=== PATIENT | male | born 1960 | race African-American/Black ===

== ENCOUNTER 2020-04-17 16:10 | Emergency (ER) | payer SELFPAY ==
[2020-04-17] MEDS ORDERED: LIDOCAINE 2% URO-JET 5 ML KIT MM ONE (16:25)
--- NOTE | 2020-04-17 16:26 | ER Document Report ---
ED Medical Screen (RME) - General Chief Complaint: Urinary Problem Stated Complaint: URINARY ISSUE Time Seen by Provider: 04/17/20 16:22 Mode of Arrival: Ambulatory Information source: Patient Notes: 59-year-old male patient presents emergency department with complaints of acute urinary retention. Patient reports he is unable to urinate, he last urinated last night. He denies any history of this happening in the past. Denies any recent illness, denies nausea, vomiting, diarrhea or fevers. Patient is alert, oriented, does not appear to be in significant distress. I have greeted and performed a rapid initial assessment of this patient. A comprehensive ED assessment and evaluation of the patient, analysis of test results and completion of the medical decision making process will be conducted by additional ED providers. I have specifically instructed the patient or family members with the patient to immediately return to any nursing staff should anything change in the patient's condition or with their chief complaint. - Related Data Allergies/Adverse Reactions: No Known Allergies Allergy (Unverified 04/17/20 16:22) Physical Exam - Vital signs Vitals: Temp Pulse Resp BP Pulse Ox 98.5 F 96 20 157/89 H 97 04/17/20 16:15 04/17/20 16:15 04/17/20 16:15 04/17/20 16:15 04/17/20 16:15 Course - Vital Signs Vital signs: Temp Pulse Resp BP Pulse Ox 98.5 F 96 20 157/89 H 97 04/17/20 16:15 04/17/20 16:15 04/17/20 16:15 04/17/20 16:15 04/17/20 16:15
[2020-04-17 16:55] LABS: ABSOLUTE BASOPHILS # (AUTO) 0.1 10^3/uL (0.0-0.2); ABSOLUTE EOSINOPHILS # (AUTO) 0.2 10^3/uL (0.0-0.6); ABSOLUTE LYMPHOCYTES (AUTO) 1.3 10^3/uL (0.5-4.7); ABSOLUTE MONOCYTES (AUTO) 0.5 10^3/uL (0.1-1.4); BASOPHILS % (AUTO) 1.1 % (0-2); EOSINOPHILS % (AUTO) 4.1 % (0-6); HEMATOCRIT 37.3 % (37.9-51.0); HEMOGLOBIN 12.6 g/dL (13.5-17.0); LYMPHOCYTES % (AUTO) 25.5 % (13-45); MEAN CORPUSCULAR HEMOGLOBIN 31.5 pg (27.0-33.4); MEAN CORPUSCULAR HGB CONC 33.7 g/dL (32.0-36.0); MEAN CORPUSCULAR VOLUME 93 fl (80-97); MONOCYTES % (AUTO) 10.1 % (3-13); PLATELET COUNT 265 10^3/uL (150-450); RED CELL DISTRIBUTION WIDTH 13.2 % (11.5-14.0); SEGMENTED NEUTROPHILS % (AUTO) 59.2 % (42-78); TOTAL CELLS COUNTED % (AUTO) 100 %; WHITE BLOOD COUNT 5.1 10^3/uL (4.0-10.5)
[2020-04-17 16:58] LABS: APPEARANCE,URINE CLEAR; BILIRUBIN,URINE NEGATIVE (NEGATIVE); COLOR,URINE STRAW; GLUCOSE, URINE NEGATIVE (NEGATIVE); KETONES,URINE NEGATIVE (NEGATIVE); LEUKOCYTE ESTERASE,URINE NEGATIVE (NEGATIVE); NITRITE,URINE NEGATIVE (NEGATIVE); PROTEIN,URINE NEGATIVE (NEGATIVE); URINE SPECIFIC GRAVITY 1.005; UROBILINOGEN,URINE NEGATIVE mg/dL (<2.0)
[2020-04-17 17:16] LABS: ALBUMIN 4.2 g/dL (3.5-5.0); ALKALINE PHOSPHATASE 49 U/L (38-126); ANION GAP 10 (5-19); ASPARTATE AMINO TRANSFERASE 24 U/L (17-59); BILIRUBIN,TOTAL 0.5 mg/dL (0.2-1.3); BLOOD UREA NITROGEN 49 mg/dL (7-20); CALCIUM 9.4 mg/dL (8.4-10.2); CARBON DIOXIDE 19 mmol/L (22-30); CHLORIDE 107 mmol/L (98-107); GLUCOSE 87 mg/dL (75-110); TOTAL PROTEIN 7.6 g/dL (6.3-8.2)
[2020-04-17 17:22] LABS: POTASSIUM 6.4 mmol/L (3.6-5.0)
[2020-04-17] MEDS ORDERED: SODIUM POLYSTYRENE SULFONATE 15 GM/60 ML PO ONE (17:49)
--- NOTE | 2020-04-17 18:07 | ER Document Report ---
ED General - General Chief Complaint: Urinary Problem Stated Complaint: URINARY ISSUE Time Seen by Provider: 04/17/20 16:22 Mode of Arrival: Ambulatory Information source: Patient - HPI Notes: Patient presents with lower abdominal pain and incontinence as well as dysuria. He states this started several days ago. He states last night he had incontinence of urine and is the first time this is happened. He states it does burn when he urinates. His pain is a burning sensation is moderate in intensity. It is worse with urination and better without. It does radiate up into his lower abdomen. No fevers. No problems with bowel movements. He denies previous similar symptoms. - Related Data Allergies/Adverse Reactions: No Known Allergies Allergy (Unverified 04/17/20 16:22) Past Medical History - General Information source: Patient - Social History Smoking Status: Current Every Day Smoker Frequency of alcohol use: None Drug Abuse: None Family History: Reviewed & Not Pertinent Patient has homicidal ideation: No Review of Systems - Review of Systems Constitutional: denies: Chills, Fever Cardiovascular: denies: Chest pain, Palpitations Respiratory: denies: Cough, Short of breath - Melanoma -: Yes All other systems reviewed and negative Physical Exam - Vital signs Vitals: Temp Pulse Resp BP Pulse Ox 98.5 F 96 20 157/89 H 97 04/17/20 16:15 04/17/20 16:15 04/17/20 16:15 04/17/20 16:15 04/17/20 16:15 Interpretation: Hypertensive - Without while how to get COVID - General General appearance: Appears well, Alert - HEENT Head: Normocephalic, Atraumatic Eyes: Normal Pupils: PERRL - Respiratory Respiratory status: No respiratory distress Chest status: Nontender Breath sounds: Normal Chest palpation: Normal - Cardiovascular Rhythm: Regular Heart sounds: Normal auscultation Murmur: No - Abdominal Inspection: Normal - works Distension: Distended Bowel sounds: Hypoactive Tenderness: Tender - tender with voluntary guarding over lower abdomen. bladder feels distended. Organomegaly: No organomegaly - Back Back: Normal, Nontender - Extremities General upper extremity: Normal inspection, Nontender, Normal color, Normal ROM, Normal temperature General lower extremity: Normal inspection, Nontender, Normal color, Normal ROM, Normal temperature, Normal weight bearing. No: Gini's sign - Neurological Neuro grossly intact: Yes Cognition: Normal Orientation: AAOx4 Icard Coma Scale Eye Opening: Spontaneous Icard Coma Scale Verbal: Oriented Icard Coma Scale Motor: Obeys Commands Icard Coma Scale Total: 15 Speech: Normal Motor strength normal: LUE, RUE, LLE, RLE Sensory: Normal - Psychological Associated symptoms: Normal affect, Normal mood - Skin Skin Temperature: Warm Skin Moisture: Dry Skin Color: Normal Course - Re-evaluation Re-evalutation: 04/17/20 20:40 Patient presents with abdominal distention and pain with urination. Patient had obvious retention on exam. A Sneed was placed and approximately 3 L have been returned of reddish urine. He states he feels significantly better. It was appreciated the patient was also in renal failure as well as hyperkalemic. On EKG he has peaked T waves with a normal QRS. I repeated his potassium after some Kayexalate and the obstruction was released however potassium is still elevated at 6.2. Therefore I will treat the patient with further medication s uch as glucose insulin bicarb and calcium. I have arranged for the patient be transferred to [facility] since there is no urology here. Patient is stable with normal vital signs. Patient CT shows no evidence of obstructive mass but he does have dilated urinary tract system. Patient had a Sneed placed easily so it seems unlikely that his prostate is the culprit. He denies taking any daily medicines so this is also unlikely to be the culprit. There is no infection. - Vital Signs Vital signs: Temp Pulse Resp BP Pulse Ox 98.5 F 96 20 157/89 H 97 04/17/20 16:23 04/17/20 16:15 04/17/20 16:15 04/17/20 16:15 04/17/20 16:15 - Laboratory Result Diagrams: 04/17/20 16:31 04/17/20 20:04 Laboratory results interpreted by me: 04/17/20 04/17/20 04/17/20 16:31 16:31 20:04 RBC 4.00 L Hgb 12.6 L Hct 37.3 L Sodium 136.2 L Potassium 6.4 H* 6.2 H* Chloride 108 H Carbon Dioxide 19 L BUN 49 H 47 H Creatinine 6.17 H 5.89 H Est GFR ( Amer) 11 L 12 L Est GFR (MDRD) Non-Af 9 L 10 L - Diagnostic Test Radiology reviewed: Image reviewed, Reports reviewed - EKG Interpretation by Me EKG shows normal: Sinus rhythm Rate: Normal - 68 Rhythm: NSR [place]/QRS: No: Right axis deviation, Left axis deviation When compared to previous EKG there are: Other - t waves are peaked Critical Care Note - Critical Care Note Total time excluding time spent on procedures (mins): 40 Comments: Approximately 40 minutes of critical care time were spent managing this patient's hyperkalemic, acute renal failure and urinary retention. This included multiple reexaminations. It included multiple discussions with consultants. And included reviewing labs and imaging. Discharge - Discharge Clinical Impression: Acute urinary retention, Hyperkalemia Acute renal failure Qualifiers: Acute renal failure type: unspecified Qualified Code(s): N17.9 - Acute kidney failure, unspecified Condition: Critical Disposition: [facility]
--- NOTE | 2020-04-17 19:00 | RADIOLOGY REPORT (SQ) ---
EXAM DESCRIPTION: CT ABD/PELVIS NO ORAL OR IV IMAGES COMPLETED DATE/TIME: 04/17/2020 6:45 pm REASON FOR STUDY: lower abdominal pain COMPARISON: None. TECHNIQUE: CT scan of the abdomen and pelvis performed without intravenous or oral contrast. Images reviewed with lung, soft tissue, and bone windows. Reconstructed coronal and sagittal MPR images revi ewed. All images stored on PACS. All CT scanners at this facility use dose modulation, iterative reconstruction, and/or weight based d osing when appropriate to reduce radiation dose to as low as reasonably achievable (ALARA). [facility]: Dose Right [facility]: CareDose [facility]: Dose Right [facility]: Teradose 4D [facility]: [employer] RADIATION DOSE: CT Rad equipment meets quality standard of care and radiation dose reduction techniq ues were employed. CTDIvol: 5.6 mGy. DLP: 294 mGy-cm.mGy. LIMITATIONS: None. FINDINGS: LOWER CHEST: No significant findings. No nodules or infiltrates. NON-CONTRASTED LIVER, SPLEEN, ADRENALS: Evaluation limited by lack of IV contrast. No identified sign ificant masses. PANCREAS: No masses. No peripancreatic inflammatory changes. GALLBLADDER: No identified stones by CT criteria. No inflammatory changes to suggest cholecystitis. RIGHT KIDNEY AND URETER: No suspicious masses. Assessment limited by lack of IV contrast. No signif icant calcifications. There is mild right-sided hydronephrosis. There is a 5.2 cm cyst. LEFT KIDNEY AND URETER: No suspicious masses. Assessment limited by lack of IV contrast. No signifi cant calcifications. Mild dilatation of the left collecting system as well. No stones are identifi ed. AORTA AND RETROPERITONEUM: No aneurysm. No retroperitoneal masses or adenopathy. BOWEL AND PERITONEAL CAVITY: No obvious masses or inflammatory changes. No free fluid. APPENDIX: Normal. PELVIS, BLADDER, AND ABDOMINAL WALL:Sneed catheter is in place in the bladder. Bladder wall appears slightly thickened measured up to 9.2 mm. BONES: No significant findings. OTHER: No other significant finding. IMPRESSION: Mild dilatation of both collecting systems right greater than left. No stones are ident ified. Bladder wall is thickened. A Sneed catheter is in place. COMMENT: Quality ID # [id number]: Final reports with documentation of one or more dose reduction techniques (e.g., Automated exposure control, adjustment of the mA and/or kV according to patient size, use of iterative reconstruction technique) TECHNICAL DOCUMENTATION: JOB ID: [id number] 2010 [employer]- All Rights Reserved Reading location - IP/workstation name: [email or web address]
[2020-04-17 20:30] LABS: ANION GAP 10 (5-19); BLOOD UREA NITROGEN 47 mg/dL (7-20); CALCIUM 9.9 mg/dL (8.4-10.2); CARBON DIOXIDE 22 mmol/L (22-30); CHLORIDE 108 mmol/L (98-107); GLUCOSE 92 mg/dL (75-110)
[2020-04-17 20:34] LABS: POTASSIUM 6.2 mmol/L (3.6-5.0)
[2020-04-17] MEDS ORDERED: CALCIUM GLUCONATE 1000 MG/10 ML INJ IV ONE (20:37)
[2020-04-17] MEDS ORDERED: DEXTROSE 50%-WATER 25 GM/50 ML DISP.SYRIN IV ONE (20:37)
[2020-04-17] MEDS ORDERED: INSULIN REG, HUMAN 100 UNIT/ML 3 ML VIAL (PYX) IV ONE (20:37)
[2020-04-17] MEDS ORDERED: SODIUM BICARBONATE 8.4% INJ 50 MEQ/50 ML DISP.SYRIN IV ONE (20:38)
[2020-04-17] MEDS ORDERED: LABETALOL HCL INJ 20 MG/4 ML DISP.SYRIN IV ONE (20:56)
--- NOTE | 2020-04-17 22:15 | EKG REPORT ---
SEVERITY:- NORMAL ECG - SINUS RHYTHM : Confirmed by: Eduardo Faust 17-Apr-2020 22:14:48
[2020-04-17 23:05] VITALS: BP 214/107
== END 2020-04-17 23:10 | disposition short-term general hospital (02) ==
LOC: ER 16:10
DX: R33.9 Retention of urine, unspecified (principal); E87.5 Hyperkalemia; R10.30 Lower abdominal pain, unspecified; N17.9 Acute kidney failure, unspecified; I10 Essential (primary) hypertension; F17.200 Nicotine dependence, unspecified, uncomplicated
CPT/HCPCS: 93005; 99285; 96374; 96375; 36415; 87086; 85025; 80053; 81001; 74176; 93010; J0610; J3490 ×3; J1815

== ENCOUNTER → 2020-11-02 | Outpatient (CLI) | payer SELFPAY ==
[2020-11-02 10:31] VITALS: BP 161/90
--- NOTE | 2020-11-02 10:31 | ER RDC ASSESSMENT REPORT ---
Intake - In the Last 14 days Have you traveled outside [place]?: No Have you been in close contact with someone CONFIRMED: No Worked in Healthcare?: No - Symptoms Subjective Fever([place] feverish): No Chills: No Muscule Aches: No Runny Nose: No Sore Throat: No Cough (New or worsening chronic cough): No Shortness of breath: No Nausea or Vomiting: No Headache: No Abdominal Pain: No Diarrhea(3 or more loose stools in last 24 hours): No - Do you have any of the following Chronic lung disease: Asthma or emphysema or COPD: No Cystic Fibrosis: No Diabetes: No High Blood Pressure: No Cardiovascular Disease: No Chronic Kidney Disease: No Chronic Liver Disease: No Chronic blood disorder like Sickle Cell Disease: No Weak immune system due to disease or medication: No Neurologic condition that limits movement: No Developmental delay - Moderate to Severe: No Morbid Obesity (>100 pounds over ideal weight): No - Objective Temperature: 98.0 F Pulse Rate: 89 Respiratory Rate: 18 Blood Pressure: 161/90 O2 Sat by Pulse Oximetry: 96 Objective: Given above, testing performed: COVID Disposition: Home; Selfcare General - General Stated Complaint: ASYMPTOMATIC, COVID TEST ONLY Time Seen by Provider: 11/02/20 10:00 Mode of Arrival: Ambulatory Information source: Patient - [facility] Notes: Patient presents to clinic for routine COVID-19 testing. Patient denies any close contact with another COVID 19 positive individual. Patient is asymptomatic. They deny any cough, shortness of breath, fever, chills, muscle aches, rhinorrhea, sore throat, nausea or vomiting, headache, abdominal pain or diarrhea. Patient has no acute medical concerns. - Related Data Allergies/Adverse Reactions: No Known Allergies Allergy (Unverified 04/17/20 16:22) Past Medical History - General Information source: Patient - Social History Smoking Status: Never Smoker Family History: Reviewed & Not Pertinent - Past Medical History Cardiac Medical History: Reports: None Pulmonary Medical History: Reports: None EENT Medical History: Reports: None Neurological Medical History: Reports: None Endocrine Medical History: Reports: None Renal/ Medical History: Reports: None Malignancy Medical History: Reports None GI Medical History: Reports: None Musculoskeletal Medical History: Reports None Skin Medical History: Reports None Psychiatric Medical History: Reports: None Traumatic Medical History: Reports: None Infectious Medical History: Reports: None Past Surgical History: Reports: None Physical Exam - General General appearance: Appears well, Alert In distress: None Notes: PHYSICAL EXAMINATION: GENERAL: Well-appearing and in no acute distress. HEAD: Atraumatic, normocephalic. EYES: sclera anicteric, conjunctiva are normal. ENT: nares patent. Moist mucous membranes. NECK: Normal range of motion, supple without lymphadenopathy. LUNGS: No increased work of breathing. Lung sounds CTAB and equal. No wheezes rales or rhonchi. HEART: Regular rate and rhythm without murmurs. ABDOMEN: Soft, nontender, normal bowel sounds, no guarding. EXTREMITIES: Normal range of motion, no pitting edema. No cyanosis. NEUROLOGICAL: A&O x 3. Normal speech. PSYCH: Normal mood, normal affect. SKIN: Warm, Dry, normal turgor, no rashes or lesions noted Patient Education/Counseling Counseling/Education: Patient presents for COVID 19 testing. Patient is asymptomatic at this time. Patient does not have emergency worrying symptoms such as difficulty breathing, shortness of breath, chest pain, pressure, confusion or cyanosis. Patient appears suitable for discharge as vital signs are stable and patient is nontoxic in appearance. Good return precautions have been discussed with patient, patient verbalized understanding and is agreeable with discharge plan of care at this time. Guidance for worsening S/SX: As a person under investigation for Covid 19, the [place] department of Health and Human Services, division of public health advises you to adhere to the following guidance until your test results are reported to you. If your test result is positive, you will receive additional information from your provider and your local health department at that time. Remain at home until you are cleared by the health provider or public health authorities. Keep a log of visitors to your home, notify any visitors to your home of your isolation status. If you plan to move to a new address or leave the county, notify the local health department in your County. Call your doctor or seek care if you have an urgent medical need. Before seeking medical care, call ahead to get instructions from the provider before arriving at the medical office clinic or hospital. Notify them that you are being tested for the virus that causes Covid 19 so that arrangements can be made, as necessary, to prevent transmission to others in the healthcare setting. Next, notify the local health department in your county. If a medical emergency arises and you need to call 911, inform the first responders that you are being tested for the virus that causes Covid 19. Next, notify the local health department in your county. RDC Discharge - Discharge Clinical Impression: Encounter for screening laboratory testing for COVID-19 virus in asymptomatic patient Condition: Good Disposition: Home; Selfcare
== END ==
LOC: RDC 09:13
PROVIDERS: ATTEND Registered Nurse
DX: Z20.828 Contact with and (suspected) exposure to other viral communicable diseases (principal)
CPT/HCPCS: 87635; 99201; 99211; C9803

== ENCOUNTER 2020-11-24 14:10 | Inpatient (IN) | payer SELFPAY ==
[2020-11-24] MEDS ORDERED: ONDANSETRON HCL INJ/PF 4 MG/2 ML SDV IV ONE ×2 (16:10→18:41)
[2020-11-24] MEDS ORDERED: NORMAL SALINE 1000 ML 1,000 ML IV ONE (16:11)
--- NOTE | 2020-11-24 16:12 | ER Document Report ---
ED Medical Screen (RME) - General Chief Complaint: Nausea/Vomiting Stated Complaint: NAUSEA,VOMITING Time Seen by Provider: 11/24/20 15:59 Mode of Arrival: Wheelchair Information source: Patient Notes: HPI; 59-year-old male presents to the emergency room complaining of nausea with vomiting x3 today patient states he had a decreased appetite with lack of smell and diarrhea with chest congestion and shortness of breath for the past week. He denies any COVID-19 exposure. Not taking any medications for symptoms. PE: Alert and oriented x3. Lungs: Clear to auscultation without rales, rhonchi, wheezes. Heart: Regular rate rhythm without murmurs, rubs, gallops. I have greeted and performed a rapid initial assessment of this patient. A comprehensive ED assessment and evaluation of the patient, analysis of test results and completion of the medical decision making process will be conducted by additional ED providers. I have specifically instructed the patient or family members with the patient to immediately return to any nursing staff should anything change in the patient's condition or with their chief complaint. TRAVEL OUTSIDE OF THE [place] IN LAST 30 DAYS: No - Related Data Allergies/Adverse Reactions: No Known Allergies Allergy (Unverified 04/17/20 16:22) Home Medications: blood pressure Past Medical History - Social History Chew tobacco use (# tins/day): No Frequency of alcohol use: None Drug Abuse: None Physical Exam - Vital signs Vitals: Temp Pulse Resp BP Pulse Ox 97.5 F 90 18 117/81 99 11/24/20 14:20 11/24/20 14:20 11/24/20 14:20 11/24/20 14:20 11/24/20 14:20 Course - Vital Signs Vital signs: Temp Pulse Resp BP Pulse Ox 97.5 F 90 18 117/81 99 11/24/20 14:20 11/24/20 14:20 11/24/20 14:20 11/24/20 14:20 11/24/20 14:20
--- NOTE | 2020-11-24 16:52 | RADIOLOGY REPORT (SQ) ---
EXAM DESCRIPTION: CHEST SINGLE VIEW IMAGES COMPLETED DATE/TIME: 11/24/2020 3:29 pm REASON FOR STUDY: cough COMPARISON: None. EXAM PARAMETERS: NUMBER OF VIEWS: One view. TECHNIQUE: Single frontal radiographic view of the chest acquired. RADIATION DOSE: NA LIMITATIONS: None. FINDINGS: LUNGS AND PLEURA: No opacities, masses or pneumothorax. No pleural effusion. MEDIASTINUM AND HILAR STRUCTURES: No masses. Contour normal. HEART AND VASCULAR STRUCTURES: Heart normal in size. Normal vasculature. BONES: No acute findings. HARDWARE: None in the chest. OTHER: No other significant finding. IMPRESSION: NO ACUTE RADIOGRAPHIC FINDING IN THE CHEST. TECHNICAL DOCUMENTATION: JOB ID: [id number] 2010 [employer]- All Rights Reserved Reading location - IP/workstation name: [email or web address]
[2020-11-24 17:34] LABS: ABSOLUTE LYMPHOCYTES (AUTO) 0.3 10^3/uL (0.5-4.7); ABSOLUTE MONOCYTES (AUTO) 0.3 10^3/uL (0.1-1.4); ABSOLUTE NEUT (AUTO) 3.6 10^3/uL (1.7-8.2); BASOPHILS % (AUTO) 0.8 % (0-2); EOSINOPHILS % (AUTO) 1.1 % (0-6); HEMATOCRIT 20.9 % (37.9-51.0); MEAN CORPUSCULAR HEMOGLOBIN 30.5 pg (27.0-33.4); MEAN CORPUSCULAR HGB CONC 34.4 g/dL (32.0-36.0); MEAN CORPUSCULAR VOLUME 89 fl (80-97); MONOCYTES % (AUTO) 5.9 % (3-13); PLATELET COUNT 302 10^3/uL (150-450); RED BLOOD COUNT 2.36 10^6/uL (4.35-5.55); RED CELL DISTRIBUTION WIDTH 13.4 % (11.5-14.0); SEGMENTED NEUTROPHILS % (AUTO) 84.2 % (42-78); TOTAL CELLS COUNTED % (AUTO) 100 %; WHITE BLOOD COUNT 4.3 10^3/uL (4.0-10.5)
[2020-11-24 17:43] LABS: HEMOGLOBIN 7.2 g/dL (13.5-17.0)
[2020-11-24] MEDS ORDERED: SODIUM POLYSTYRENE SULFONATE 15 GM/60 ML NG ONE (18:39)
[2020-11-24] MEDS ORDERED: CALCIUM GLUCONATE 1000 MG/10 ML INJ IV ONE (18:39)
[2020-11-24] MEDS ORDERED: DEXTROSE 50%-WATER 25 GM/50 ML DISP.SYRIN IV ONE ×2 (18:39→19:11)
[2020-11-24] MEDS ORDERED: INSULIN REG, HUMAN 100 UNIT/ML 3 ML VIAL (PYX) IV ONE (18:39)
[2020-11-24] MEDS ORDERED: SODIUM BICARBONATE 8.4% INJ 50 MEQ/50 ML DISP.SYRIN IV ONE (18:40)
[2020-11-24] MEDS ORDERED: SODIUM POLYSTYRENE SULFONATE 15 GM/60 ML PO ONE (18:44)
--- NOTE | 2020-11-24 18:54 | ER Document Report ---
ED General - General Mode of Arrival: Wheelchair TRAVEL OUTSIDE OF THE [place] IN LAST 30 DAYS: No - Related Data Home Medications: blood pressure <MANUEL HODGSON - Last Filed: 11/24/20 20:24> <ARLETTE KAPADIA IV - Last Filed: 11/25/20 06:52> <DARYN MONSON - Last Filed: 11/25/20 17:45> - General Chief Complaint: Nausea/Vomiting Stated Complaint: NAUSEA,VOMITING Time Seen by Provider: 11/24/20 15:59 Primary Care Provider: ISAURO,NO [Primary Care Provider] - Follow up as needed - HPI Notes: Chief complaint: HPI: 59-year-old male with history of hypertension, BPH and previous visit here about 6 months ago for bladder outlet obstruction and acute kidney injury with transfer to [facility] at that time now presents to the emergency room complaining of nausea with vomiting x3 today. He states he had a decreased appetite with lack of smell and diarrhea with chest congestion and shortness of breath for the past week. He denies any COVID-19 exposure. Not taking any medications at this time. Patient apparently has not been following up with a physician since he was discharged from [facility]. He is a terrible historian and says that he really does not know anything about his kidney disease. 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 HENT: As per HPI. Eyes: Negative for visual changes. Cardiovascular: Negative for chest pain. Respiratory: As per HPI. Gastrointestinal: Negative for abdominal pain, vomiting or diarrhea. Genitourinary: Negative for dysuria. Musculoskeletal: Negative for back pain. Skin: Negative for rash. Neurological: Negative for headaches, focal weakness or numbness. 10 point ROS negative except as marked above and in HPI. (MANUEL HODGSON) Physical Exam <MANUEL HODGSON - Last Filed: 11/24/20 20:24> - Vital signs Vitals: Temp Pulse Resp BP Pulse Ox 97.5 F 90 18 117/81 99 11/24/20 14:20 11/24/20 14:20 11/24/20 14:20 11/24/20 14:20 11/24/20 14:20 - Notes Notes: GENERAL: Slender male approximately stated age appearing in no acute distress. SKIN: Dry and warm to touch. Good turgor no rashes. HEAD: Normocephalic atraumatic. EYES: PERRLA. EOMI. Conjunctivae pale. Sclerae clear. EARS: CANALS AND TMS CLEAR. NOSE: CLEAR. MOUTH: Moist mucosa. Good dentition. No stridor or edema. No drooling. NECK: Supple. No masses or thyromegaly. No adenopathy. Carotids 2+ without bruits. No JVD. BACK: Symmetrical without tenderness. CHEST: Respirations unlabored. Breath sounds clear and symmetrical. HEART: Regular rhythm. No murmur gallop or rub. ABDOMEN: Soft nontender without masses, organomegaly or rebound. Bowel sounds normally active. No bruits. GENITALIA: Deferred. EXTREMITIES: No edema. No calf tenderness. Cap refill less than 1.5 seconds. Dorsalis pedis and posterior tibial pulses 3+ and symmetrical. NEUROLOGICAL: GCS 15. Alert and oriented x3. Fluent speech. Cranial nerves II through XII intact. Sensorimotor and cerebellar normal. Normal tone. PSYCHIATRIC: Appropriate affect. (MANUEL HODGSON) Course - Laboratory Results Result Diagrams: 11/24/20 19:08 11/24/20 19:08 Critical Laboratory Results Reviewed: Yes Attending or Supervising Physician who Reviewed Labs: MANUEL HODGSON - Radiology Results Critical Radiology Results Reviewed: No Critical Results Attending or Supervising Physician who Reviewed Radiology: MANUEL HODGSON <MANUEL HODGSON - Last Filed: 11/24/20 20:24> - Laboratory Results Result Diagrams: 11/25/20 03:30 11/25/20 03:30 - Consults Dr. Asher, Hospitalist, [facility] Time consulted: 03:40 - Dr. Asher accepted pt for admission but pt will be on a wait list <ARLETTE KAPADIA IV - Last Filed: 11/25/20 06:52> - Laboratory Results Result Diagrams: 11/25/20 16:00 11/25/20 16:00 <DARYN MONSON - Last Filed: 11/25/20 17:45> - Re-evaluation Re-evalutation: 11/24/20 19:15 Bladder scan shows residual urine about [address] not place a Sneed catheter. In all likelihood he has obstructive uropathy once again. I am treating him for presumptive hyperkalemia. As soon as we get his labs back anticipate he is going need to be transferred because we have no nephrology ser vices at the hospital this weekend. 11/24/20 20:24 Patient has a markedly elevated BUN and creatinine consistent with acute on chronic kidney disease. Etiology is most likely obstructive uropathy. He has Sneed catheter in at this time. We have already addressed his hyperkalemia. He will need to be transferred because we have no nephrology available here tonight. We also do not have urology. We have initiated transfer process to [facility]. Further care will be turned over to Dr. Kapadia at this time. (MANUEL HODGSON) 11/25/20 06:52 Patient's BUN and creatinine remain elevated despite a total of 2150 cc of urine output (ARLETTE KAPADIA IV) 11/25/20 16:32 Patient is hemodynamically stable continues to have urine output that is impr jeffery from its pastel pink color. Patient reports that he would like to eat some food at this time. His renal diet is on its way at this time. In terms of transferring patient to another facility we have tried multiple facilities at this time [facility] and [facility]. (DARYN MONSON) - Vital Signs Vital signs: Temp Pulse Resp BP Pulse Ox 98.2 F 107 H 11 L 128/84 H 100 11/25/20 15:00 11/24/20 22:33 11/25/20 17:01 11/25/20 16:01 11/25/20 17:01 - Laboratory Results Laboratory Results Interpreted: 11/24/20 11/24/20 11/24/20 17:05 19:08 19:08 RBC 2.36 L 2.04 L Hgb 7.2 L 6.4 L Hct 20.9 L 18.2 L RDW Lymph % (Auto) 8.0 L 6.4 L Absolute Lymphs (auto) 0.3 L 0.3 L Seg Neutrophils % 84.2 H 85.1 H Sodium 134.9 L Potassium 5.7 H Chloride 85 L Carbon Dioxide 16 L Anion Gap 34 H BUN 258 H Creatinine 39.19 H Est GFR ( Amer) 1 L Est GFR (MDRD) Non-Af 1 L Glucose Calcium 7.4 L Crossmatch 11/24/20 11/25/20 11/25/20 20:16 00:10 00:10 RBC 2.57 L Hgb 7.8 L Hct 22.5 L RDW Lymph % (Auto) 7.3 L Absolute Lymphs (auto) 0.3 L Seg Neutrophils % Sodium Potassium Chloride 84 L Carbon Dioxide 21 L Anion Gap 33 H BUN 266 H Creatinine 42.01 H Est GFR ( Amer) 1 L Est GFR (MDRD) Non-Af 1 L Glucose 123 H Calcium 7.9 L Crossmatch See Detail 11/25/20 11/25/20 11/25/20 03:30 03:30 10:43 RBC 2.63 L 2.89 L Hgb 7.9 L 8.6 L Hct 22.8 L 24.9 L RDW Lymph % (Auto) 8.0 L 9.1 L Absolute Lymphs (auto) 0.4 L Seg Neutrophils % 78.1 H 78.9 H Sodium Potassium Chloride 85 L Carbon Dioxide Anion Gap 31 H BUN 261 H Creatinine 39.46 H Est GFR ( Amer) 1 L Est GFR (MDRD) Non-Af 1 L Glucose 111 H Calcium 7.4 L Crossmatch 11/25/20 11/25/20 11/25/20 10:43 16:00 16:00 RBC 2.85 L Hgb 8.5 L Hct 24.6 L RDW 14.1 H Lymph % (Auto) 5.1 L Absolute Lymphs (auto) 0.3 L Seg Neutrophils % 89.5 H Sodium Potassium Chloride 85 L 85 L Carbon Dioxide Anion Gap 31 H 30 H BUN 256 H 254 H Creatinine 37.24 H 36.25 H Est GFR ( Amer) 1 L 1 L Est GFR (MDRD) Non-Af 1 L 1 L Glucose Calcium 7.2 L 7.0 L* Crossmatch 11/25/20 17:43 Abnormal lab values with critical BUN and creatinine with BUN to 54 creatinine 36 calcium 7 hemoglobin 8 hematocrit 24 (DARYN MONSON) - Radiology Results Radiology Results Interpreted: 11/24/20 18:58 Chest X-Ray 11/24/20 16:04 IMPRESSION: NO ACUTE RADIOGRAPHIC FINDING IN THE CHEST. (MANUEL HODGSON) - EKG Interpretation by Me Additional EKG results interpreted by me: 11/24/20 18:59 Twelve-lead EKG reviewed by me contemporaneously: 1821 hrs. Indication for study: Weakness Rhythm: Normal sinus Rate: 73 Intervals: Normal intervals QRS axis: +[address]/T wave changes: Prominent peaking of T waves in multiple leads consistent with hyperkalemia Comparison with prior tracing: Compared with prior study of 04/17/2020 there is now prominent peaking of the T waves suggestive of hyperkalemia Interpretation: Peaking of T waves consistent with hyperkalemia (MANUEL HODGSON) - Consults Dr. Asher, Hospitalist, [facility] Reason for consultation: 11/25/20 06:54 Uremia and renal failure (ARLETTE KAPADIA IV) Discharge <MANUEL HODGSON - Last Filed: 11/24/20 20:24> <ARLETTE KAPADIA IV - Last Filed: 11/25/20 06:52> - Discharge Admitting Provider: Edelmira (Hospitalist) Unit Admitted: Telemetry <DARYN MONSON - Last Filed: 11/25/20 17:45> - Discharge Clinical Impression: Uremia Renal failure Qualifiers: Renal failure chronicity: unspecified chronicity Qualified Code(s): N19 - Unspecified kidney failure Condition: Good Disposition: ADMITTED INPATIENT Referrals: LOCALMD,NO [Primary Care Provider] - Follow up as needed
[2020-11-24 19:38] LABS: ABSOLUTE LYMPHOCYTES (AUTO) 0.3 10^3/uL (0.5-4.7); ABSOLUTE MONOCYTES (AUTO) 0.3 10^3/uL (0.1-1.4); ABSOLUTE NEUT (AUTO) 3.9 10^3/uL (1.7-8.2); EOSINOPHILS % (AUTO) 1.1 % (0-6); HEMATOCRIT 18.2 % (37.9-51.0); LYMPHOCYTES % (AUTO) 6.4 % (13-45); MEAN CORPUSCULAR HEMOGLOBIN 31.1 pg (27.0-33.4); MEAN CORPUSCULAR VOLUME 89 fl (80-97); MONOCYTES % (AUTO) 6.4 % (3-13); PLATELET COUNT 284 10^3/uL (150-450); RED BLOOD COUNT 2.04 10^6/uL (4.35-5.55); RED CELL DISTRIBUTION WIDTH 13.2 % (11.5-14.0); SEGMENTED NEUTROPHILS % (AUTO) 85.1 % (42-78); TOTAL CELLS COUNTED % (AUTO) 100 %; WHITE BLOOD COUNT 4.6 10^3/uL (4.0-10.5)
[2020-11-24 19:41] LABS: HEMOGLOBIN 6.4 g/dL (13.5-17.0)
[2020-11-24 19:45] LABS: ALBUMIN 4.3 g/dL (3.5-5.0); ALKALINE PHOSPHATASE 48 U/L (38-126); ASPARTATE AMINO TRANSFERASE 18 U/L (17-59); BILIRUBIN,DIRECT 0.4 mg/dL (0.0-0.4); BILIRUBIN,TOTAL 0.4 mg/dL (0.2-1.3); CALCIUM 7.4 mg/dL (8.4-10.2); GLUCOSE 89 mg/dL (75-110); POTASSIUM 5.7 mmol/L (3.6-5.0)
[2020-11-24 19:50] LABS: CARBON DIOXIDE 16 mmol/L (22-30); CHLORIDE 85 mmol/L (98-107)
[2020-11-24] MEDS ORDERED: NORMAL SALINE 250 ML IV PRN ×2 (19:52)
[2020-11-24] MEDS ORDERED: LIDOCAINE 2% URO-JET 5 ML KIT MM ONE (19:54)
[2020-11-24 20:01] LABS: BLOOD UREA NITROGEN 258 mg/dL (7-20)
[2020-11-24 20:02] LABS: ANION GAP 34 (5-19)
[2020-11-24] MEDS ORDERED: DEXTROSE 5%-WATER 1000 ML 1,000 ML with SODIUM BICARBONATE 100 MEQ IV ONE ×2 (20:27)
[2020-11-24] MEDS ORDERED: SODIUM BICARBONATE 8.4% INJ 50 MEQ/50 ML DISP.SYRIN ONE (21:41)
--- NOTE | 2020-11-24 21:47 | EKG REPORT ---
SEVERITY:- ABNORMAL ECG - SINUS RHYTHM LEFT VENTRICULAR HYPERTROPHY ST ELEVATION, LVH RELATED : Confirmed by: Eduardo Faust 24-Nov-2020 21:47:02
--- NOTE | 2020-11-24 22:27 | RADIOLOGY REPORT (SQ) ---
EXAM DESCRIPTION: CT ABDOMEN PELVIS WITHOUT IV CONTRAST COMPLETED DATE/TME: 11/24/2020 21:27 CLINICAL HISTORY: 59 years, Male, urinary retention,please comment allen placement COMPARISON: None. TECHNIQUE: Contiguous axial CT images of the abdomen and pelvis. Intravenous contrast: Absent. Oral contrast: Absent. DLP 235 mGy-cm. This exam was performed according to our departmental dose-optimization program, which includes automated exposure control, adjustment of the mA and/or kV according to patient size and/or use of iterative reconstruction technique. FINDINGS: Lower chest: Partially imaged. Lung bases: Unremarkable. Cardiac apex: Unremarkable. Solid abdominal viscera: Limited by lack of intravenous contrast. Liver: Unremarkable. Gallbladder: Unremarkable. Pancreas: Unremarkable. Spleen: Unremarkable. Adrenal glands: Unremarkable. Right kidney: 4.5 cm cyst. Mild hydronephrosis without evidence of hydroureter or urolithiasis. Left kidney: Mild hydronephrosis without evidence of hydroureter or urolithiasis. Urinary bladder: Allen catheter in satisfactory position. Go of the urinary bladder measure up to 7 mm in thickness Abdominal aorta: Unremarkable. Peritoneal: Free fluid: None. Free air: None. Other: No pathologic sized lymph nodes in the upper abdomen. 1.3 cm left perirectal lymph node. Bowel: Stomach: Unremarkable. Small bowel: Unremarkable. Appendix: Unremarkable. Colon: Unremarkable. Rectum: Mild circumferential thickening Prostate: Unremarkable. Bones: Sclerotic lesions are noted involving the posterior aspect of the T12 vertebral body, L1 vertebral body, S1 and right ninth rib. No pathologic fracture. IMPRESSION: Satisfactory position with a Allen catheter. Mild thickening of the urinary bladder, which may be due to cystitis. Mild bilateral hydronephrosis without evidence of urolithiasis or hydroureter. Diffuse sclerotic metastasis with no pathologic fracture. This may be secondary to rectal cancer, as there circumferential thickening with a left perirectal lymph node.
[2020-11-25 00:42] LABS: ABSOLUTE EOSINOPHILS # (AUTO) 0.1 10^3/uL (0.0-0.6); ABSOLUTE LYMPHOCYTES (AUTO) 0.3 10^3/uL (0.5-4.7); ABSOLUTE MONOCYTES (AUTO) 0.5 10^3/uL (0.1-1.4); ABSOLUTE NEUT (AUTO) 3.4 10^3/uL (1.7-8.2); BASOPHILS % (AUTO) 0.3 % (0-2); EOSINOPHILS % (AUTO) 2.8 % (0-6); HEMATOCRIT 22.5 % (37.9-51.0); LYMPHOCYTES % (AUTO) 7.3 % (13-45); MEAN CORPUSCULAR HEMOGLOBIN 30.1 pg (27.0-33.4); MEAN CORPUSCULAR HGB CONC 34.5 g/dL (32.0-36.0); MEAN CORPUSCULAR VOLUME 87 fl (80-97); MONOCYTES % (AUTO) 12.4 % (3-13); PLATELET COUNT 248 10^3/uL (150-450); RED BLOOD COUNT 2.57 10^6/uL (4.35-5.55); RED CELL DISTRIBUTION WIDTH 13.7 % (11.5-14.0); SEGMENTED NEUTROPHILS % (AUTO) 77.2 % (42-78); TOTAL CELLS COUNTED % (AUTO) 100 %; WHITE BLOOD COUNT 4.4 10^3/uL (4.0-10.5)
[2020-11-25 00:44] LABS: HEMOGLOBIN 7.8 g/dL (13.5-17.0)
[2020-11-25 00:55] LABS: ALBUMIN 4.2 g/dL (3.5-5.0); ALKALINE PHOSPHATASE 47 U/L (38-126); ASPARTATE AMINO TRANSFERASE 19 U/L (17-59); BILIRUBIN,DIRECT 0.4 mg/dL (0.0-0.4); BILIRUBIN,TOTAL 0.4 mg/dL (0.2-1.3); CALCIUM 7.9 mg/dL (8.4-10.2); GLUCOSE 123 mg/dL (75-110); POTASSIUM 4.9 mmol/L (3.6-5.0); TOTAL PROTEIN 6.9 g/dL (6.3-8.2)
[2020-11-25 01:01] LABS: CARBON DIOXIDE 21 mmol/L (22-30); CHLORIDE 84 mmol/L (98-107)
[2020-11-25 01:48] LABS: BLOOD UREA NITROGEN 266 mg/dL (7-20)
[2020-11-25 01:49] LABS: ANION GAP 33 (5-19)
[2020-11-25] MEDS ORDERED: NORMAL SALINE 250 ML IV ONE (03:01)
[2020-11-25 04:55] LABS: ABSOLUTE EOSINOPHILS # (AUTO) 0.2 10^3/uL (0.0-0.6); ABSOLUTE LYMPHOCYTES (AUTO) 0.4 10^3/uL (0.5-4.7); ABSOLUTE MONOCYTES (AUTO) 0.4 10^3/uL (0.1-1.4); ABSOLUTE NEUT (AUTO) 3.5 10^3/uL (1.7-8.2); BASOPHILS % (AUTO) 0.4 % (0-2); EOSINOPHILS % (AUTO) 4.4 % (0-6); HEMATOCRIT 22.8 % (37.9-51.0); MEAN CORPUSCULAR HEMOGLOBIN 30.1 pg (27.0-33.4); MEAN CORPUSCULAR HGB CONC 34.8 g/dL (32.0-36.0); MEAN CORPUSCULAR VOLUME 87 fl (80-97); MONOCYTES % (AUTO) 9.1 % (3-13); PLATELET COUNT 268 10^3/uL (150-450); RED BLOOD COUNT 2.63 10^6/uL (4.35-5.55); RED CELL DISTRIBUTION WIDTH 13.8 % (11.5-14.0); SEGMENTED NEUTROPHILS % (AUTO) 78.1 % (42-78); TOTAL CELLS COUNTED % (AUTO) 100 %; WHITE BLOOD COUNT 4.5 10^3/uL (4.0-10.5)
[2020-11-25 04:57] LABS: HEMOGLOBIN 7.9 g/dL (13.5-17.0)
[2020-11-25 05:04] LABS: ALBUMIN 3.9 g/dL (3.5-5.0); ALKALINE PHOSPHATASE 48 U/L (38-126); ASPARTATE AMINO TRANSFERASE 18 U/L (17-59); BILIRUBIN,DIRECT 0.4 mg/dL (0.0-0.4); BILIRUBIN,TOTAL 0.4 mg/dL (0.2-1.3); CALCIUM 7.4 mg/dL (8.4-10.2); GLUCOSE 111 mg/dL (75-110); POTASSIUM 4.4 mmol/L (3.6-5.0); TOTAL PROTEIN 6.5 g/dL (6.3-8.2)
[2020-11-25 05:10] LABS: CARBON DIOXIDE 22 mmol/L (22-30); CHLORIDE 85 mmol/L (98-107)
[2020-11-25 05:28] LABS: ANION GAP 31 (5-19)
[2020-11-25 05:44] LABS: BLOOD UREA NITROGEN 261 mg/dL (7-20)
[2020-11-25 11:01] LABS: ABSOLUTE EOSINOPHILS # (AUTO) 0.3 10^3/uL (0.0-0.6); ABSOLUTE LYMPHOCYTES (AUTO) 0.5 10^3/uL (0.5-4.7); ABSOLUTE MONOCYTES (AUTO) 0.4 10^3/uL (0.1-1.4); ABSOLUTE NEUT (AUTO) 4.1 10^3/uL (1.7-8.2); BASOPHILS % (AUTO) 0.5 % (0-2); EOSINOPHILS % (AUTO) 4.8 % (0-6); HEMATOCRIT 24.9 % (37.9-51.0); HEMOGLOBIN 8.6 g/dL (13.5-17.0); LYMPHOCYTES % (AUTO) 9.1 % (13-45); MEAN CORPUSCULAR HEMOGLOBIN 29.8 pg (27.0-33.4); MEAN CORPUSCULAR HGB CONC 34.5 g/dL (32.0-36.0); MEAN CORPUSCULAR VOLUME 86 fl (80-97); MONOCYTES % (AUTO) 6.7 % (3-13); PLATELET COUNT 298 10^3/uL (150-450); RED BLOOD COUNT 2.89 10^6/uL (4.35-5.55); RED CELL DISTRIBUTION WIDTH 13.9 % (11.5-14.0); SEGMENTED NEUTROPHILS % (AUTO) 78.9 % (42-78); TOTAL CELLS COUNTED % (AUTO) 100 %; WHITE BLOOD COUNT 5.2 10^3/uL (4.0-10.5)
[2020-11-25 11:18] LABS: ALBUMIN 3.9 g/dL (3.5-5.0); ALKALINE PHOSPHATASE 47 U/L (38-126); ASPARTATE AMINO TRANSFERASE 18 U/L (17-59); BILIRUBIN,DIRECT 0.4 mg/dL (0.0-0.4); BILIRUBIN,TOTAL 0.4 mg/dL (0.2-1.3); CALCIUM 7.2 mg/dL (8.4-10.2); GLUCOSE 87 mg/dL (75-110); POTASSIUM 4.2 mmol/L (3.6-5.0); TOTAL PROTEIN 6.6 g/dL (6.3-8.2)
[2020-11-25 11:24] LABS: CARBON DIOXIDE 22 mmol/L (22-30); CHLORIDE 85 mmol/L (98-107)
[2020-11-25 11:43] LABS: BLOOD UREA NITROGEN 256 mg/dL (7-20)
[2020-11-25 11:44] LABS: ANION GAP 31 (5-19)
[2020-11-25] MEDS ORDERED: NORMAL SALINE 1000 ML 1,000 ML IV ONE ×2 (14:32→15:32)
[2020-11-25 16:33] LABS: ABSOLUTE EOSINOPHILS # (AUTO) 0.1 10^3/uL (0.0-0.6); ABSOLUTE LYMPHOCYTES (AUTO) 0.3 10^3/uL (0.5-4.7); ABSOLUTE MONOCYTES (AUTO) 0.2 10^3/uL (0.1-1.4); ABSOLUTE NEUT (AUTO) 4.8 10^3/uL (1.7-8.2); BASOPHILS % (AUTO) 0.3 % (0-2); EOSINOPHILS % (AUTO) 1.9 % (0-6); HEMATOCRIT 24.6 % (37.9-51.0); HEMOGLOBIN 8.5 g/dL (13.5-17.0); LYMPHOCYTES % (AUTO) 5.1 % (13-45); MEAN CORPUSCULAR HEMOGLOBIN 29.7 pg (27.0-33.4); MEAN CORPUSCULAR HGB CONC 34.4 g/dL (32.0-36.0); MEAN CORPUSCULAR VOLUME 86 fl (80-97); MONOCYTES % (AUTO) 3.2 % (3-13); PLATELET COUNT 283 10^3/uL (150-450); RED BLOOD COUNT 2.85 10^6/uL (4.35-5.55); RED CELL DISTRIBUTION WIDTH 14.1 % (11.5-14.0); SEGMENTED NEUTROPHILS % (AUTO) 89.5 % (42-78); TOTAL CELLS COUNTED % (AUTO) 100 %; WHITE BLOOD COUNT 5.4 10^3/uL (4.0-10.5)
[2020-11-25 16:48] LABS: GLUCOSE 86 mg/dL (75-110); POTASSIUM 4.2 mmol/L (3.6-5.0)
[2020-11-25 16:54] LABS: CARBON DIOXIDE 23 mmol/L (22-30); CHLORIDE 85 mmol/L (98-107)
[2020-11-25] MEDS ORDERED: DEXTROSE 5%-NORMAL SALINE 1,000 ML IV ONE (17:02)
[2020-11-25 17:30] LABS: BLOOD UREA NITROGEN 254 mg/dL (7-20)
[2020-11-25 17:31] LABS: ANION GAP 30 (5-19)
[2020-11-25] MEDS ORDERED: CALCIUM GLUCONATE 1000 MG/10 ML INJ IV ONE (17:40)
[2020-11-25] MEDS ORDERED: ACETAMINOPHEN 325 MG TABLET PO PRN (18:06)
[2020-11-25] MEDS ORDERED: ONDANSETRON HCL INJ/PF 4 MG/2 ML SDV IV PRN (18:06)
--- NOTE | 2020-11-25 18:28 | PDOC H&P ---
History of Present Illness Admission Date/PCP: 11/25/20 18:09 Patient complains of: Feeling sick with nausea and vomiting History of Present Illness: Please also see emergency department notes LINDA COOPER is a 59 year old male with a history of acute kidney failure in April as well as hypertension. In April he presented with similar symptoms with a BUN of 49 and a creatinine of 6.17. He was able to transfer to [facility] and underwent a single dialysis treatment. It was felt that he had obstructive uropathy at that time. At the time of this admission a Sneed catheter was placed and 2.25 L of urine was drained. Sneed catheter remains in place. Because of the high uremia the patient does exhibit mild confusion but eventually is able to answer questions correctly. He could not remember the name of his antihypertensive medication. He did remember his primary care physician is Dr. Hylton in [place]. He knew he was in [facility] in [place]. He knew the month and the fact that his birthday is next week. When he presented initially yesterday his hemoglobin was 7.2 but dropped to 6.4 with hydration. He was transfused 2 units of packed cells. His vitals have been relatively stable since then. The emergency department physician did contact multiple hospitals for transfer as we do not have nephrology on the weekends. The patient is making urine. The plan will be to admit the patient and monitor closely. We will administer IV fluids. His skin is extremely dry and he exhibits skin tenting. His hemoglobin today was up to 8.5 and we will monitor closely. His calcium did drop to 7.0 and 1 g of calcium has been ordered. His albumin is normal at 3.9. Electrolytes are unremarkable. Serol ogy was performed and the patient tested negative for Covid virus. Since several facilities have refused transfer I will admit him to the hospitalist service. IV fluids with strict intake and output monitoring. If he remains stable we will have nephrology evaluate him on Friday. If he does not remain stable then we will need to attempt to transfer again. Past Medical History Cardiac Medical History: Reports: Hypertension Denies: Congestive Heart Failure, Myocardial Infarction Pulmonary Medical History: Denies: Asthma, Chronic Obstructive Pulmonary Disease (COPD), Sleep Apnea EENT Medical History: Denies: Cataracts, Ears, Nose, Throat Endocrine Medical History: Denies: Diabetes Mellitus Type 1, Diabetes Mellitus Type 2 Renal/ Medical History: Reports: Other - Single episode acute kidney injury 6 months ago Denies: Chronic Kidney Disease Malignancy Medical History: Reports: None GI Medical History: Denies: Cirrhosis, Diverticulitis, Gastroesophageal Reflux Disease Psychiatric Medical History: Denies: Alcohol Dependency, Depression, Tobacco Dependency Traumatic Medical History: Reports: None Hematology: Denies: Anemia, Hemophilia, Sickle Cell Disease Infectious Medical History: Reports: None Past Surgical History Past Surgical History: Reports: None Social History Information Source: Patient, [facility] Records Lives with: Family Smoking Status: Never Smoker Electronic Cigarette use?: No Frequency of Alcohol Use: None Hx Recreational Drug Use: No Drugs: None Hx Prescription Drug Abuse: No - Advance Directive Resuscitation Status: Full Code Surrogate healthcare decision maker:: The patient's . She was here earlier but went home. I will review with her tomorrow. Family History Family History: Malignancy Parental Family History Reviewed: Yes - Father GSW, mother malignancy Children Family History Reviewed: Yes Sibling(s) Family History Reviewed.: Yes Medication/Allergy Allergies/Adverse Reactions: No Known Allergies Allergy (Unverified 04/17/20 16:22) Review of Systems All systems: reviewed and no additional remarkable complaints except as stated Constitutional: PRESENT: anorexia Gastrointestinal: PRESENT: nausea, vomiting Genitourinary: PRESENT: difficulty urinating Integumentary: PRESENT: other - Very dry skin Neurological: PRESENT: confusion - Mild from uremia Physical Exam Vital Signs: Temp Pulse Resp BP Pulse Ox 98.2 F 107 H 11 L 128/84 H 100 11/25/20 15:00 11/24/20 22:33 11/25/20 17:01 11/25/20 16:01 11/25/20 17:01 Intake & Output 11/24/20 11/25/20 11/26/20 06:59 06:59 06:59 Intake Total 2710 1000 Output Total 2250 600 Balance 460 400 Weight 57.3 kg General appearance: PRESENT: no acute distress, cooperative, thin, well- developed Head exam: PRESENT: atraumatic, normocephalic Eye exam: PRESENT: conjunctiva pale, EOMI, PERRLA Ear exam: PRESENT: normal external ear exam. ABSENT: bleeding, drainage Mouth exam: PRESENT: dry mucosa, tongue midline Neck exam: ABSENT: carotid bruit, JVD, lymphadenopathy, tenderness, tracheostomy Respiratory exam: PRESENT: clear to auscultation wilver, symmetrical, unlabored. ABSENT: accessory muscle use, prolonged expiratory phas, rales, rhonchi, tachypnea, wheezes Cardiovascular exam: PRESENT: RRR, +S1, +S2. ABSENT: bradycardia, diastolic murmur, irregular rhythm, systolic murmur, tachycardia GI/Abdominal exam: PRESENT: normal bowel sounds, soft. ABSENT: ascites, distended, guarding, tenderness Rectal exam: PRESENT: deferred Gentrourinary exam: PRESENT: indwelling catheter - [place]-tinged urine Extremities exam: ABSENT: calf tenderness, clubbing, pedal edema Musculoskeletal exam: PRESENT: normal inspection. ABSENT: deformity, dislocation Neurological exam: PRESENT: alert, altered - Mild confusion due to uremia, awake, oriented to person, oriented to place, oriented to time, oriented to situation, CN II-XII grossly intact Psychiatric exam: PRESENT: appropriate affect. ABSENT: agitated, anxious Focused psych exam: ABSENT: delusional, paranoid, restlessness Skin exam: PRESENT: dry - Very dry with skin tenting, normal color, warm. ABSENT: rash Results Laboratory Results: 11/25/20 16:00 11/25/20 16:00 11/24/20 11/24/20 11/24/20 17:05 19:08 19:08 WBC 4.6 RBC 2.04 L Hgb 6.4 L Hct 18.2 L MCV 89 MCH 31.1 MCHC 35.0 RDW 13.2 Plt Count 284 Seg Neutrophils % 85.1 H Sodium Cancelled 134.9 L Potassium Cancelled 5.7 H Chloride Cancelled 85 L Carbon Dioxide Cancelled 16 L Anion Gap Cancelled 34 H BUN Cancelled 258 H Creatinine Cancelled 39.19 H Est GFR ( Amer) Cancelled 1 L Est GFR (Non-Af Amer) Cancelled Glucose Cancelled 89 Calcium Cancelled 7.4 L Total Bilirubin Cancelled 0.4 AST Cancelled 18 Alkaline Phosphatase Cancelled 48 Total Protein Cancelled 7.0 Albumin Cancelled 4.3 Blood Type Antibody Screen 11/24/20 11/25/20 11/25/20 20:16 00:10 00:10 WBC 4.4 RBC 2.57 L Hgb 7.8 L Hct 22.5 L MCV 87 MCH 30.1 MCHC 34.5 RDW 13.7 Plt Count 248 Seg Neutrophils % 77.2 Sodium 137.9 Potassium 4.9 Chloride 84 L Carbon Dioxide 21 L Anion Gap 33 H BUN 266 H Creatinine 42.01 H Est GFR ( Amer) 1 L Est GFR (Non-Af Amer) Glucose 123 H Calcium 7.9 L Total Bilirubin 0.4 AST 19 Alkaline Phosphatase 47 Total Protein 6.9 Albumin 4.2 Blood Type O POSITIVE Antibody Screen NEGATIVE 11/25/20 11/25/20 11/25/20 03:30 03:30 10:43 WBC 4.5 5.2 RBC 2.63 L 2.89 L Hgb 7.9 L 8.6 L Hct 22.8 L 24.9 L MCV 87 86 MCH 30.1 29.8 MCHC 34.8 34.5 RDW 13.8 13.9 Plt Count 268 298 Seg Neutrophils % 78.1 H 78.9 H Sodium 137.6 Potassium 4.4 Chloride 85 L Carbon Dioxide 22 Anion Gap 31 H BUN 261 H Creatinine 39.46 H Est GFR ( Amer) 1 L Est GFR (Non-Af Amer) Glucose 111 H Calcium 7.4 L Total Bilirubin 0.4 AST 18 Alkaline Phosphatase 48 Total Protein 6.5 Albumin 3.9 Blood Type Antibody Screen 11/25/20 11/25/20 11/25/20 10:43 16:00 16:00 WBC 5.4 RBC 2.85 L Hgb 8.5 L Hct 24.6 L MCV 86 MCH 29.7 MCHC 34.4 RDW 14.1 H Plt Count 283 Seg Neutrophils % 89.5 H Sodium 138.0 137.6 Potassium 4.2 4.2 Chloride 85 L 85 L Carbon Dioxide 22 23 Anion Gap 31 H 30 H BUN 256 H 254 H Creatinine 37.24 H 36.25 H Est GFR ( Amer) 1 L 1 L Est GFR (Non-Af Amer) Glucose 87 86 Calcium 7.2 L 7.0 L* Total Bilirubin 0.4 AST 18 Alkaline Phosphatase 47 Total Protein 6.6 Albumin 3.9 Blood Type Antibody Screen Impressions: Chest X-Ray 11/24/20 16:04 IMPRESSION: NO ACUTE RADIOGRAPHIC FINDING IN THE CHEST. Abdomen/Pelvis CT 11/24/20 20:51 IMPRESSION: Satisfactory position with a Sneed catheter. Mild thickening of the urinary bladder, which may be due to cystitis. Mild bilateral hydronephrosis without evidence of urolithiasis or hydroureter. Diffuse sclerotic metastasis with no pathologic fracture. This may be secondary to rectal cancer, as there circumferential thickening with a left perirectal lymph node. Assessment and Plan - Diagnosis (1) Acute kidney injury (JAMESON) with acute tubular necrosis (ATN) Is this a current diagnosis for this admission?: Yes (2) Urinary retention Is this a current diagnosis for this admission?: Yes (3) Hydronephrosis Qualifiers: Hydronephrosis type: other Qualified Code(s): N13.39 - Other hydronephrosis Is this a current diagnosis for this admission?: Yes (4) Hematuria Qualifiers: Hematuria type: unspecified type Qualified Code(s): R31.9 - Hematuria, unspecified Is this a current diagnosis for this admission?: Yes (5) Anemia Qualifiers: Anemia type: unspecified type Qualified Code(s): D64.9 - Anemia, unspecified Is this a current diagnosis for this admission?: Yes (6) Uremia Is this a current diagnosis for this admission?: Yes (7) Acute metabolic encephalopathy Is this a current diagnosis for this admission?: Yes (8) Hypertension Qualifiers: Hypertension type: essential hypertension Qualified Code(s): I10 - Essential (primary) hypertension Is this a current diagnosis for this admission?: Yes - Plan Summary Summary: (1) Acute kidney injury (JAMESON) with acute tubular necrosis (ATN) (2) Urinary retention (3) Hydronephrosis (4) Hematuria (5) Anemia (6) Uremia (7) Acute metabolic encephalopathy (8) Hypertension 11/25/2020 Acute kidney injury-secondary to urinary retention. Mild hydronephrosis noted bilaterally. On CT scan it did show slight thickening of the bladder wall. I have requested a urinalysis with reflex to culture. Will monitor strict intake and output. Will continue IV fluids as well. Nephrology consult on Friday. In the meantime CRP and antineutrophil antibody studies with reflex have been ordered. Urinary retention-CT scan did show thickening of the wall of the colon. There is a question of possible developing malignancy that may have obstructed urine outflow. We will continue the Sneed catheter and continue to monitor intake and output. Hematuria-the urine was tinged pink. Awaiting urinalysis but will likely find mild hematuria. This certainly could be from irritation of the bladder wall. CT scan without contrast did not suggest any renal calculi. We will continue to monitor urine and check urinalysis routinely. The patient will be on subcutaneous heparin for DVT prophylaxis. If the hematuria increases we will discontinue anticoagulant therapy. Hypertension-the patient cannot remember the name of his antihypertensive medication. For the time being we will wait and just monitor blood pressure. If his blood pressure does begin to increase consider amlodipine or hydralazine at least temporarily. Acute metabolic encephalopathy-this is most likely due to the marked uremia. The patient is mildly confused at times. He has some difficulty recalling certain details such as his medications, his pharmacy and his primary care provider. This should resolve as the BUN decreases. Anemia-anemia studies have been ordered for the morning. It is most likely that this kidney failure has been building up for some time. The numbers today are significantly higher than in April. The BUN to creatinine ratio is about the same at the 7-8 range. Fecal occult blood testing was negative. It is most likely that is related to his renal function. - Time Time Spent with patient: 35 or more minutes Medications reviewed and adjusted accordingly: Yes Anticipated Discharge Disposition: Unknown Anticipated Discharge Timeframe: Unknown - Inpatient Certification Based on my medical assessment, after consideration of the patient's comorbidities, presenting symptoms, or acuity I expect that the services needed warrant INPATIENT care.: Yes I certify that my determination is in accordance with my understanding of Medicare's requirements for reasonable and necessary INPATIENT services [42 CFR 412.3e].: Yes Medical Necessity: Significant Comorbidiites Make Outpatient Treatment Too Risky, Need Close Monitoring Due to Risk of Patient Decompensation, Need For IV Fluids, Need For Continuous Telemetry Monitoring, Risk of Complication if Not Cared For in Hospital Post Hospital Care: D/C or Transfer Summary
[2020-11-25 19:41] LABS: ALBUMIN 3.7 g/dL (3.5-5.0); GLUCOSE 110 mg/dL (75-110); POTASSIUM 4.2 mmol/L (3.6-5.0)
[2020-11-25 19:46] LABS: CARBON DIOXIDE 23 mmol/L (22-30); CHLORIDE 87 mmol/L (98-107)
[2020-11-25 20:11] LABS: BLOOD UREA NITROGEN 249 mg/dL (7-20)
[2020-11-25 20:12] LABS: ANION GAP 26 (5-19)
[2020-11-25 20:14] LABS: CALCIUM 6.7 mg/dL (8.4-10.2)
[2020-11-25 20:34] LABS: APPEARANCE,URINE SLIGHTLY-CLOUDY; BILIRUBIN,URINE NEGATIVE (NEGATIVE); COLOR,URINE YELLOW; GLUCOSE, URINE 50 mg/dL (NEGATIVE); KETONES,URINE NEGATIVE (NEGATIVE); PROTEIN,URINE >=500 mg/dL (NEGATIVE); URINE SPECIFIC GRAVITY 1.013; UROBILINOGEN,URINE NEGATIVE mg/dL (<2.0)
[2020-11-25] MEDS: NORMAL SALINE 1000 ML 1,000 ML IV PRN (21:26)
[2020-11-25] MEDS: HEPARIN SOD (PORCINE) 5,000 UNIT/ML 1 ML VIAL SUBCUT SCH (22:00)
[2020-11-26 05:24] LABS: ABSOLUTE EOSINOPHILS # (AUTO) 0.2 10^3/uL (0.0-0.6); ABSOLUTE LYMPHOCYTES (AUTO) 0.5 10^3/uL (0.5-4.7); ABSOLUTE MONOCYTES (AUTO) 0.6 10^3/uL (0.1-1.4); ABSOLUTE RETICS # 0.041 10^6/uL (0.028-0.122); BASOPHILS % (AUTO) 0.3 % (0-2); EOSINOPHILS % (AUTO) 2.2 % (0-6); HEMATOCRIT 24.9 % (37.9-51.0); HEMOGLOBIN 8.4 g/dL (13.5-17.0); LYMPHOCYTES % (AUTO) 6.6 % (13-45); MEAN CORPUSCULAR HEMOGLOBIN 29.5 pg (27.0-33.4); MEAN CORPUSCULAR HGB CONC 33.6 g/dL (32.0-36.0); MEAN CORPUSCULAR VOLUME 88 fl (80-97); PLATELET COUNT 271 10^3/uL (150-450); RED BLOOD COUNT 2.83 10^6/uL (4.35-5.55); RETICULOCYTE COUNT (AUTO) 1.45 % (0.66-2.85); SEGMENTED NEUTROPHILS % (AUTO) 83.9 % (42-78); TOTAL CELLS COUNTED % (AUTO) 100 %; WHITE BLOOD COUNT 8.3 10^3/uL (4.0-10.5)
[2020-11-26] MEDS: PANTOPRAZOLE SODIUM 20 MG TABLET.DR PO SCH (05:55)
[2020-11-26] MEDS: HEPARIN SOD (PORCINE) 5,000 UNIT/ML 1 ML VIAL SUBCUT SCH ×3 (05:55→23:05)
[2020-11-26 08:27] LABS: C-REACTIVE PROTEIN 23.3 mg/L (<10.0); IRON(TIBC) 52.7 ug/dL (49-181)
[2020-11-26 09:31] LABS: FOLATE 6.35 ng/mL (>2.76)
[2020-11-26] MEDS: NORMAL SALINE 1000 ML 1,000 ML IV PRN ×2 (13:18→23:06)
--- NOTE | 2020-11-26 14:34 | PDOC PROGRESS REPORT ---
Subjective Date:: 11/26/20 Reason For Visit: UREMIA,RENAL FAILURE Physical Exam Vital Signs: Temp Pulse Resp BP Pulse Ox 98.6 F 73 19 125/72 96 11/26/20 12:00 11/26/20 12:00 11/26/20 12:00 11/26/20 12:00 11/26/20 12:00 Intake & Output 11/25/20 11/26/20 11/27/20 06:59 06:59 06:59 Intake Total 2710 2568 326 Output Total 2250 1860 1000 Balance 460 708 -674 Weight 57.3 kg 55.6 kg General appearance: PRESENT: no acute distress, cooperative, well-developed Head exam: PRESENT: atraumatic, normocephalic Eye exam: PRESENT: conjunctiva pale, EOMI. ABSENT: scleral icterus Ear exam: PRESENT: normal external ear exam. ABSENT: bleeding, drainage Mouth exam: PRESENT: moist, tongue midline Neck exam: ABSENT: carotid bruit, JVD, lymphadenopathy Respiratory exam: PRESENT: clear to auscultation [place], symmetrical, unlabored. ABSENT: rales, rhonchi, tachypnea, wheezes Cardiovascular exam: PRESENT: RRR, +S1, +S2. ABSENT: bradycardia, diastolic murmur, irregular rhythm, systolic murmur, tachycardia GI/Abdominal exam: PRESENT: normal bowel sounds, soft. ABSENT: distended, guarding, tenderness Rectal exam: PRESENT: deferred Gentrourinary exam: PRESENT: indwelling catheter Extremities exam: ABSENT: pedal edema Musculoskeletal exam: PRESENT: ambulatory, normal inspection. ABSENT: defor mity, dislocation Neurological exam: PRESENT: alert, altered - Occasional repetitive answers appears to be more clear than yesterday, awake, oriented to person, oriented to place, oriented to situation, CN II-XII grossly intact Psychiatric exam: PRESENT: appropriate affect. ABSENT: agitated, anxious Focused psych exam: ABSENT: delusional, paranoid Skin exam: PRESENT: dry - Very dry skin with skin tenting, normal color, warm Results Laboratory Results: 11/26/20 04:20 11/25/20 19:01 11/25/20 11/25/20 11/25/20 16:00 16:00 19:01 WBC 5.4 RBC 2.85 L Hgb 8.5 L Hct 24.6 L MCV 86 MCH 29.7 MCHC 34.4 RDW 14.1 H Plt Count 283 Seg Neutrophils % 89.5 H Retic Count (auto) Sodium 137.6 135.9 L Potassium 4.2 4.2 Chloride 85 L 87 L Carbon Dioxide 23 23 Anion Gap 30 H 26 H BUN 254 H 249 H Creatinine 36.25 H 36.03 H Est GFR ( Amer) 1 L 1 L Glucose 86 110 Calcium 7.0 L* 6.7 L* Phosphorus 14.0 H Magnesium 2.1 Iron TIBC % Saturation Ferritin C-Reactive Protein Albumin 3.7 Vitamin B12 Folate TSH Urine Color Urine Appearance Urine pH Ur Specific [place] Urine Protein Urine Glucose (UA) Urine Ketones Urine Blood Urine RBC (Auto) 11/25/20 11/26/20 11/26/20 20:14 04:20 04:20 WBC 8.3 RBC 2.83 L Hgb 8.4 L Hct 24.9 L MCV 88 MCH 29.5 MCHC 33.6 RDW 14.0 Plt Count 271 Seg Neutrophils % 83.9 H Retic Count (auto) 1.45 Sodium Potassium Chloride Carbon Dioxide Anion Gap BUN Creatinine Est GFR ( Amer) Glucose Calcium Phosphorus Magnesium Cancelled Iron Cancelled TIBC Cancelled % Saturation Cancelled Ferritin Cancelled C-Reactive Protein Cancelled Albumin Vitamin B12 Cancelled Folate Cancelled TSH Urine Color YELLOW Urine Appearance SLIGHTLY-CLOUDY Urine pH 7.0 Ur Specific [place] 1.013 Urine Protein >=500 H Urine Glucose (UA) 50 H Urine Ketones NEGATIVE Urine Blood LARGE H Urine RBC (Auto) >182 11/26/20 11/26/20 04:20 07:51 WBC RBC Hgb Hct MCV MCH MCHC RDW Plt Count Seg Neutrophils % Retic Count (auto) Sodium Potassium Chloride Carbon Dioxide Anion Gap BUN Creatinine Est GFR ( Amer) Glucose Calcium Phosphorus Magnesium 2.1 Iron 52.7 TIBC 199 L % Saturation 26 Ferritin 571.00 H C-Reactive Protein 23.3 H Albumin Vitamin B12 856.0 Folate 6.35 TSH 0.38 L Urine Color Urine Appearance Urine pH Ur Specific [place] Urine Protein Urine Glucose (UA) Urine Ketones Urine Blood Urine RBC (Auto) Impressions: Chest X-Ray 11/24/20 16:04 IMPRESSION: NO ACUTE RADIOGRAPHIC FINDING IN THE CHEST. Abdomen/Pelvis CT 11/24/20 20:51 IMPRESSION: Satisfactory position with a Sneed catheter. Mild thickening of the urinary bladder, which may be due to cystitis. Mild bilateral hydronephrosis without evidence of urolithiasis or hydroureter. Diffuse sclerotic metastasis with no pathologic fracture. This may be secondary to rectal cancer, as there circumferential thickening with a left perirectal lymph node. Assessment and Plan - Diagnosis (1) Acute kidney injury (JAMESON) with acute tubular necrosis (ATN) Is this a current diagnosis for this admission?: Yes (2) Urinary retention Is this a current diagnosis for this admission?: Yes (3) Hydronephrosis Qualifiers: Hydronephrosis type: other Qualified Code(s): N13.39 - Other hydronephrosis Is this a current diagnosis for this admission?: Yes (4) Hematuria Qualifiers: Hematuria type: unspecified type Qualified Code(s): R31.9 - Hematuria, unspecified Is this a current diagnosis for this admission?: Yes (5) Anemia Qualifiers: Anemia type: unspecified type Qualified Code(s): D64.9 - Anemia, unspecified Is this a current diagnosis for this admission?: Yes (6) Uremia Is this a current diagnosis for this admission?: Yes (7) Acute metabolic encephalopathy Is this a current diagnosis for this admission?: Yes (8) Hypertension Qualifiers: Hypertension type: essential hypertension Qualified Code(s): I10 - Essential (primary) hypertension Is this a current diagnosis for this admission?: Yes - Plan Summary Summary: (1) Acute kidney injury (JAMESON) with acute tubular necrosis (ATN) (2) Urinary retention (3) Hydronephrosis (4) Hematuria (5) Anemia (6) Uremia (7) Acute metabolic encephalopathy (8) Hypertension 11/25/2020 Acute kidney injury-secondary to urinary retention. Mild hydronephrosis noted bilaterally. On CT scan it did show slight thickening of the bladder wall. I have requested a urinalysis with reflex to culture. Will monitor strict intake and output. Will continue IV fluids as well. Nephrology consult on Friday. In the meantime CRP and antineutrophil antibody studies with reflex have been ordered. Urinary retention-CT scan did show thickening of the wall of the colon. There is a question of possible developing malignancy that may have obstructed urine outflow. We will continue the Sneed catheter and continue to monitor intake and output. Hematuria-the urine was tinged pink. Awaiting urinalysis but will likely find mild hematuria. This certainly could be from irritation of the bladder wall. CT scan without contrast did not suggest any renal calculi. We will continue to monitor urine and check urinalysis routinely. The patient will be on subcutaneous heparin for DVT prophylaxis. If the hematuria increases we will discontinue anticoagulant therapy. Hypertension-the patient cannot remember the name of his antihypertensive m edication. For the time being we will wait and just monitor blood pressure. If his blood pressure does begin to increase consider amlodipine or hydralazine at least temporarily. Acute metabolic encephalopathy-this is most likely due to the marked uremia. The patient is mildly confused at times. He has some difficulty recalling certain details such as his medications, his pharmacy and his primary care provider. This should resolve as the BUN decreases. Anemia-anemia studies have been ordered for the morning. It is most likely that this kidney failure has been building up for some time. The numbers today are significantly higher than in April. The BUN to creatinine ratio is about the sa me at the 7-8 range. Fecal occult blood testing was negative. It is most likely that is related to his renal function. 11/26/2020 Acute kidney injury-the BUN and creatinine remain markedly elevated but the patient is producing urine. After the initial Sneed was placed and 2.25 L was released he had an additional 1.8 L of urine production for the rest of the day. Today he has already had 1 L of urine. Urinary retention-Sneed catheter to remain in place. Hematuria-appears to have resolved Hypertension-blood pressures are reasonably controlled. No need for antihypertensive medication at this time. Acute metabolic encephalopathy from uremia-patient is somewhat clearer than yesterday. BUN is still extremely high. Encephalopathy is slowly improving. Anemia-most likely related to his renal function. Continue to monitor. May require iron therapy. The patient has remained stable. Nephrology will be available tomorrow. It is likely that he will be dialyzed several times. I did increase his IV fluids as well. - Time Time Spent with patient: 15-24 minutes Medications reviewed and adjusted accordingly: Yes Anticipated Discharge Disposition: Unknown Anticipated Discharge Timeframe: Unknown
[2020-11-26] MEDS: DOCUSATE SODIUM 100 MG CAPSULE PO PRN (18:55)
[2020-11-26] MEDS: CALCIUM GLUC IN NACL, ISO-OSM 1 GM/50 ML RTUPB IV SCH ×2 (18:55→20:43)
[2020-11-26] MEDS: PANTOT AC/MIN OIL/PET HY-PHL OINT 50 GM TOP SCH (19:03)
[2020-11-27 05:17] LABS: ABSOLUTE EOSINOPHILS # (AUTO) 0.2 10^3/uL (0.0-0.6); ABSOLUTE LYMPHOCYTES (AUTO) 0.5 10^3/uL (0.5-4.7); ABSOLUTE MONOCYTES (AUTO) 0.4 10^3/uL (0.1-1.4); ABSOLUTE NEUT (AUTO) 3.4 10^3/uL (1.7-8.2); BASOPHILS % (AUTO) 0.8 % (0-2); EOSINOPHILS % (AUTO) 5.4 % (0-6); HEMATOCRIT 19.5 % (37.9-51.0); LYMPHOCYTES % (AUTO) 11.4 % (13-45); MEAN CORPUSCULAR HEMOGLOBIN 30.1 pg (27.0-33.4); MEAN CORPUSCULAR VOLUME 89 fl (80-97); MONOCYTES % (AUTO) 9.6 % (3-13); PLATELET COUNT 224 10^3/uL (150-450); RED CELL DISTRIBUTION WIDTH 14.2 % (11.5-14.0); SEGMENTED NEUTROPHILS % (AUTO) 72.8 % (42-78); TOTAL CELLS COUNTED % (AUTO) 100 %; WHITE BLOOD COUNT 4.6 10^3/uL (4.0-10.5)
[2020-11-27 05:28] LABS: HEMOGLOBIN 6.6 g/dL (13.5-17.0)
[2020-11-27] MEDS: HEPARIN SOD (PORCINE) 5,000 UNIT/ML 1 ML VIAL SUBCUT SCH ×3 (05:42→23:27)
[2020-11-27] MEDS ORDERED: NORMAL SALINE 250 ML IV PRN ×2 (05:45)
[2020-11-27] MEDS: PANTOPRAZOLE SODIUM 20 MG TABLET.DR PO SCH (05:51)
[2020-11-27 08:56] LABS: ALBUMIN 2.9 g/dL (3.5-5.0); ALKALINE PHOSPHATASE 43 U/L (38-126); ASPARTATE AMINO TRANSFERASE 17 U/L (17-59); BILIRUBIN,DIRECT 0.3 mg/dL (0.0-0.4); BILIRUBIN,TOTAL 0.3 mg/dL (0.2-1.3); GLUCOSE 88 mg/dL (75-110); POTASSIUM 4.4 mmol/L (3.6-5.0); TOTAL PROTEIN 5.5 g/dL (6.3-8.2)
[2020-11-27 09:02] LABS: CARBON DIOXIDE 19 mmol/L (22-30); CHLORIDE 97 mmol/L (98-107)
--- NOTE | 2020-11-27 09:16 | PDOC PROGRESS REPORT ---
Subjective Date:: 11/27/20 Subjective:: Patient is resting comfortably. His hemoglobin dropped to 6.6 last night and un it of packed red blood cells is on order. He still is intermittently confused from his uremia. Reason For Visit: UREMIA,RENAL FAILURE Physical Exam Vital Signs: Temp Pulse Resp BP Pulse Ox 97.8 F 90 20 110/70 98 11/27/20 07:58 11/27/20 07:58 11/27/20 07:58 11/27/20 07:58 11/27/20 07:58 Intake & Output 11/26/20 11/27/20 11/28/20 06:59 06:59 06:59 Intake Total 2568 951 Output Total 1860 2400 Balance 708 -1449 Weight 55.6 kg 58.7 kg General appearance: PRESENT: cooperative, mild distress, well-developed Head exam: PRESENT: atraumatic, normocephalic Eye exam: PRESENT: conjunctiva pale, EOMI. ABSENT: scleral icterus Ear exam: PRESENT: normal external ear exam. ABSENT: bleeding, drainage Mouth exam: PRESENT: moist, tongue midline Neck exam: ABSENT: carotid bruit, JVD, lymphadenopathy Respiratory exam: PRESENT: clear to auscultation wilver, symmetrical, unlabored. ABSENT: rales, rhonchi, tachypnea, wheezes Cardiovascular exam: PRESENT: RRR, +S1, +S2. ABSENT: bradycardia, diastolic murmur, irregular rhythm, systolic murmur, tachycardia GI/Abdominal exam: PRESENT: normal bowel sounds, soft. ABSENT: distended, guarding, tenderness Rectal exam: PRESENT: deferred Gentrourinary exam: PRESENT: indwelling catheter Extremities exam: ABSENT: pedal edema Musculoskeletal exam: PRESENT: ambulatory, normal inspection. ABSENT: def ormity, dislocation Neurological exam: PRESENT: alert, altered - Occasional confusion consistent with his uremia, awake, oriented to person, oriented to place, CN II-XII grossly intact Psychiatric exam: PRESENT: anxious, appropriate affect. ABSENT: agitated Skin exam: PRESENT: dry, normal color, rash - Psoriasis, warm Results Laboratory Results: 11/27/20 04:50 11/24/20 11/26/20 11/27/20 20:16 07:51 04:50 WBC 4.6 RBC 2.20 L Hgb 6.6 L Hct 19.5 L MCV 89 MCH 30.1 MCHC 34.0 RDW 14.2 H Plt Count 224 Seg Neutrophils % 72.8 Magnesium 2.1 Iron 52.7 TIBC 199 L % Saturation 26 Ferritin 571.00 H C-Reactive Protein 23.3 H Vitamin B12 856.0 Folate 6.35 PTH Intact Blood Type O POSITIVE Antibody Screen NEGATIVE 11/27/20 11/27/20 04:50 04:50 WBC RBC Hgb Hct MCV MCH MCHC RDW Plt Count Seg Neutrophils % Magnesium 1.7 Iron TIBC % Saturation Ferritin C-Reactive Protein Vitamin B12 Folate PTH Intact 394.0 H Blood Type Antibody Screen Impressions: Chest X-Ray 11/24/20 16:04 IMPRESSION: NO ACUTE RADIOGRAPHIC FINDING IN THE CHEST. Abdomen/Pelvis CT 11/24/20 20:51 IMPRESSION: Satisfactory position with a Sneed catheter. Mild thickening of the urinary bladder, which may be due to cystitis. Mild bilateral hydronephrosis without evidence of urolithiasis or hydroureter. Diffuse sclerotic metastasis with no pathologic fracture. This may be secondary to rectal cancer, as there circumferential thickening with a left perirectal lymph node. Assessment and Plan - Diagnosis (1) Acute kidney injury (JAMESON) with acute tubular necrosis (ATN) Is this a current diagnosis for this admission?: Yes (2) Urinary retention Is this a current diagnosis for this admission?: Yes (3) Hydronephrosis Qualifiers: Hydronephrosis type: other Qualified Code(s): N13.39 - Other hydronephrosis Is this a current diagnosis for this admission?: Yes (4) Hematuria Qualifiers: Hematuria type: unspecified type Qualified Code(s): R31.9 - Hematuria, unspecified Is this a current diagnosis for this admission?: Yes (5) Anemia Qualifiers: Anemia type: unspecified type Qualified Code(s): D64.9 - Anemia, unspecified Is this a current diagnosis for this admission?: Yes (6) Uremia Is this a current diagnosis for this admission?: Yes (7) Acute metabolic encephalopathy Is this a current diagnosis for this admission?: Yes (8) Hypertension Qualifiers: Hypertension type: essential hypertension Qualified Code(s): I10 - Essential (primary) hypertension Is this a current diagnosis for this admission?: Yes - Plan Summary Summary: (1) Acute kidney injury (JAMESON) with acute tubular necrosis (ATN) (2) Urinary retention (3) Hydronephrosis (4) Hematuria (5) Anemia (6) Uremia (7) Acute metabolic encephalopathy (8) Hypertension 11/25/2020 Acute kidney injury-secondary to urinary retention. Mild hydronephrosis noted bilaterally. On CT scan it did show slight thickening of the bladder wall. I have requested a urinalysis with reflex to culture. Will monitor strict intake and output. Will continue IV fluids as well. Nephrology consult on Friday. In the meantime CRP and antineutrophil antibody studies with reflex have been ordered. Urinary retention-CT scan did show thickening of the wall of the colon. There is a question of possible developing malignancy that may have obstructed urine outflow. We will continue the Sneed catheter and continue to monitor intake and output. Hematuria-the urine was tinged pink. Awaiting urinalysis but will likely find mild hematuria. This certainly could be from irritation of the bladder wall. CT scan without contrast did not suggest any renal calculi. We will continue to monitor urine and check urinalysis routinely. The patient will be on subcutaneous heparin for DVT prophylaxis. If the hematuria increases we will discontinue anticoagulant therapy. Hypertension-the patient cannot remember the name of his antihypertensive medication. For the time being we will wait and just monitor blood pressure. If his blood pressure does begin to increase consider amlodipine or hydralazine at least temporarily. Acute metabolic encephalopathy-this is most likely due to the marked uremia. The patient is mildly confused at times. He has some difficulty recalling certain details such as his medications, his pharmacy and his primary care provider. This should resolve as the BUN decreases. Anemia-anemia studies have been ordered for the morning. It is most likely that this kidney failure has been building up for some time. The numbers today are significantly higher than in April. The BUN to creatinine ratio is about the same at the 7-8 range. Fecal occult blood testing was negative. It is most likely that is related to his renal function. 11/26/2020 Acute kidney injury-the BUN and creatinine remain markedly elevated but the patient is producing urine. After the initial Sneed was placed and 2.25 L was released he had an additional 1.8 L of urine production for the rest of the day. Today he has already had 1 L of urine. Urinary retention-Sneed catheter to remain in place. Hematuria-appears to have resolved Hypertension-blood pressures are reasonably controlled. No need for antihypertensive medication at this time. Acute metabolic encephalopathy from uremia-patient is somewhat clearer than yesterday. BUN is still extremely high. Encephalopathy is slowly improving. Anemia-most likely related to his renal function. Continue to monitor. May require iron therapy. The patient has remained stable. Nephrology will be available tomorrow. It is likely that he will be dialyzed several times. I did increase his IV fluids as well. 11/27/2020 Acute kidney injury-the patient will undergo hemodialysis today. Dr. Aj Hylton has been consulted. Dr. Yen has already placed a trial assist catheter. The patient is still exhibiting some confusion from his uremia. This is more likely to be an acute on chronic. The nature of his obstructive uropathy has still to be determined. Anemia-the recent drop is most likely delusional from the IV fluids. A unit of packed red blood cells has been ordered. Hypertension-blood pressure is still marginal. No need for antihypertensive medications at this time. Hematuria-resolved Acute metabolic encephalopathy-secondary to uremia. Improving. Dr. Aj Hylton has been consulted. As noted above patient will undergo dialysis at least today and will likely need several treatments. - Time Time Spent with patient: 15-24 minutes Medications reviewed and adjusted accordingly: Yes Anticipated Discharge Disposition: Unknown Anticipated Discharge Timeframe: Unknown
[2020-11-27 09:22] LABS: CALCIUM 6.5 mg/dL (8.4-10.2)
[2020-11-27 09:23] LABS: ANION GAP 20 (5-19); BLOOD UREA NITROGEN 208 mg/dL (7-20)
[2020-11-27] MEDS: CALCIUM CARBONATE 600 MG/VITAMIN D3 400 UNIT TABLET PO SCH (10:24)
[2020-11-27] MEDS: DOCUSATE SODIUM 100 MG CAPSULE PO PRN (10:24)
[2020-11-27] MEDS: PANTOT AC/MIN OIL/PET HY-PHL OINT 50 GM TOP SCH ×2 (10:27→18:41)
[2020-11-27] MEDS: NORMAL SALINE 1000 ML 1,000 ML IV PRN (10:28)
[2020-11-27] MEDS: CALCIUM GLUC IN NACL, ISO-OSM 1 GM/50 ML RTUPB IV SCH ×2 (10:38→13:18)
--- NOTE | 2020-11-27 11:33 | Operative Report ---
Operative Report DATE OF SURGERY: 11/27/20 PREOPERATIVE DIAGNOSIS: Chronic renal failure POSTOPERATIVE DIAGNOSIS: Chronic renal failure OPERATION: Ultrasound directed trialysis catheter insertion right femoral vein SURGEON: ESAU WIGGINS ANESTHESIA: Local TISSUE REMOVED OR ALTERED: None COMPLICATIONS: None ESTIMATED BLOOD LOSS: Minimal INTRAOPERATIVE FINDINGS: See below PROCEDURE: Patient was seen in the fourth floor, right groin exposed, cleansed, clipped, then prepped and draped in sterile fashion. Surgical plan surgical timeout were conducted. Right groin was scanned with a variable frequency linear transducer. Findings were significant for compressible, patent right common femoral vein felt suitable for cannulation. Skin was anesthetized 1% plain lidocaine, gabi made in the skin with a #11 blade, 14-gauge needle and wire threaded into the right internal jugular vein. The tract was dilated up with a medium and large dilators, then the triple lumen dialysis catheter was threaded over the wire into the common femoral vein. There was excellent aspiration of blood flow through all 3 lm. Lumens were loaded with dilute heparin 50 units/cc. Catheter secured to the skin with 2-0 Ethilon suture. Sterile dressing was applied. Patient tolerated procedure well. Catheter may be used. Surgery will sign off. Please reconsult if clinically indicated.
[2020-11-27] MEDS ORDERED: HEPARIN SOD (PORCINE) 1,000 UNIT/ML 10 ML VIAL IV PRN (12:58)
[2020-11-27] MEDS ORDERED: TUBERCULIN,PURIF.PROT.DERIV. 5 TU/0.1 ML TEST 1 ML VIAL ID ONE (12:58)
[2020-11-27] MEDS: CALCITRIOL 0.25 MCG CAPSULE PO SCH (13:20)
--- NOTE | 2020-11-27 13:25 | PDOC CONSULTATION ---
Consultation Consult Date: 11/27/20 Provider Consulted: Jase LYNN Consult reason:: JAMESON with uremia. History of Present Illness Admission Date/PCP: 11/25/20 18:09 History of Present Illness: LINDA SABA is a 59 year old male with a history of Hypertension , BPH and a h/o acute kidney failure in April 2020. In April he presented with similar symptoms with a BUN of 49 and a creatinine of 6.17. He was apparently then transferred to [facility] and underwent a single dialysis treatment. It was felt that he had obstructive uropathy at that time. Patient is confused and disoriented and therefore poor historian. Therefore chart review was done. Patient admitted with history of nausea vomiting and diarrhea. He also gives history of coughing spells and some shortness of breath of approximately 8 weeks duration. Patient apparently has not been seeing any physicians nor do I think he has any primary care physicians. Admission labs had shown that his Covid serology was negative, hemoglobin was 7.2 and later the next day dropped to 6.4, transfused 2 units and peaked 8.6 and today 6.6. His admission BUN/creatinine was 252/42 and today is 208/25. His admission other relevant labs include calcium 7.4 today 6.9, phosphorus of 14, PTH of 394, albumin of 2.9, potassium 5.7 today were 4.4. Renal/abdominal CT scan showed mild bilateral hydronephrosis. Diffuse sclerotic lesions of the thoracic and some lumbar vertebra and the right ninth rib without any evidences of any pathologic fractures. Radiologist did opine that he could have secondary bone metastasis from possible renal cancer as there is a circumferential thickened left perirectal lymph node. Patient has been begun on IV fluids and has had a Sneed catheter in place and is making good amounts of urine.Rest of his labs and medications were reviewed. Patient is subsequently seen on dialysis. Patient still remains pleasantly confused and disoriented. Dialysis orders were reviewed with treating dialysis nurse. Past Medical History Cardiac Medical History: Reports: Hypertension-primary Denies: Myocardial Infarction Pulmonary Medical History: Denies: Asthma, Chronic Obstructive Pulmonary Disease (COPD), Sleep Apnea EENT Medical History: Denies: Cataracts, Ears, Nose, Throat Endocrine Medical History: Denies: Diabetes Mellitus Type 1, Diabetes Mellitus Type 2 Complications of Diabetes: Reports: None Renal/ Medical History: Reports: Benign Prostatic Hyperplasia, Other - Single episode acute kidney injury 6 months ago Denies: Hematuria Malignancy Medical History: Reports: None GI Medical History: Denies: Cirrhosis, Diverticulitis, Gastroesophageal Reflux Disease Psychiatric Medical History: Denies: Alcohol Dependency, Depression, Tobacco Dependency Traumatic Medical History: Reports: None Infectious Medical History: Reports: None Past Surgical History Past Surgical History: Reports: None Social History Lives with: Family Smoking Status: Unknown if Ever Smoked Electronic Cigarette use?: No Frequency of Alcohol Use: Rare Hx Recreational Drug Use: Yes Drugs: None Hx Prescription Drug Abuse: No - Advance Directive Resuscitation Status: Full Code Family History Parental Family History Reviewed: No - Patient confused and disoriented. Children Family History Reviewed: No Sibling(s) Family History Reviewed.: No Medication/Allergy Home Medications: Tamsulosin HCl [Flomax 0.4 mg Cap.sr] 0.4 mg PO DAILY 11/26/20 Allergies/Adverse Reactions: No Known Allergies Allergy (Unverified 04/17/20 16:22) Review of Systems ROS unobtainable: Due to mental status Cardiovascular: ABSENT: chest pain, dyspnea on exertion Gastrointestinal: ABSENT: abdominal pain Neurological: PRESENT: confusion Physical Exam Vital Signs: Temp Pulse Resp BP Pulse Ox 98.4 F 82 21 H 139/89 H 100 11/27/20 12:00 11/27/20 12:00 11/27/20 12:00 11/27/20 12:00 11/27/20 12:00 Intake & Output 11/26/20 11/27/20 11/28/20 06:59 06:59 06:59 Intake Total 2568 1951 236 Output Total 1860 2400 400 Balance 708 -449 -164 Weight 55.6 kg 58.7 kg General appearance: PRESENT: no acute distress, cooperative, disheveled Eye exam: PRESENT: EOMI, PERRLA. ABSENT: scleral icterus Ear exam: PRESENT: normal external ear exam Mouth exam: PRESENT: neck supple. ABSENT: moist Neck exam: ABSENT: meningismus, tenderness, thyromegaly, tracheal deviation Respiratory exam: PRESENT: clear to auscultation wilver, decreased breath sounds. ABSENT: crackles Cardiovascular exam: PRESENT: +S1, +S2 GI/Abdominal exam: PRESENT: normal bowel sounds, soft. ABSENT: organomegaly, tenderness Extremities exam: ABSENT: pedal edema Neurological exam: PRESENT: altered Psychiatric exam: PRESENT: flat affect Skin exam: PRESENT: dry, pallor. ABSENT: cyanosis, erythema, mottled, rash Results Laboratory Results: 11/27/20 04:50 11/27/20 04:50 11/24/20 11/27/20 11/27/20 20:16 04:50 04:50 WBC 4.6 RBC 2.20 L Hgb 6.6 L Hct 19.5 L MCV 89 MCH 30.1 MCHC 34.0 RDW 14.2 H Plt Count 224 Seg Neutrophils % 72.8 Sodium Potassium Chloride Carbon Dioxide Anion Gap BUN Creatinine Est GFR ( Amer) Glucose Calcium Magnesium 1.7 Total Bilirubin AST Alkaline Phosphatase Total Protein Albumin PTH Intact Blood Type O POSITIVE Antibody Screen NEGATIVE 11/27/20 11/27/20 04:50 04:50 WBC RBC Hgb Hct MCV MCH MCHC RDW Plt Count Seg Neutrophils % Sodium 135.8 L Potassium 4.4 Chloride 97 L Carbon Dioxide 19 L Anion Gap 20 H BUN 208 H Creatinine 27.38 H Est GFR ( Amer) 2 L Glucose 88 Calcium 6.5 L* Magnesium Total Bilirubin 0.3 AST 17 Alkaline Phosphatase 43 Total Protein 5.5 L Albumin 2.9 L PTH Intact 394.0 H Blood Type Antibody Screen 11/25/20 20:14 Sneed Catheter Urine Culture - Final NO GROWTH 2 DAYS Impressions: Chest X-Ray 11/24/20 16:04 IMPRESSION: NO ACUTE RADIOGRAPHIC FINDING IN THE CHEST. Abdomen/Pelvis CT 11/24/20 20:51 IMPRESSION: Satisfactory position with a Sneed catheter. Mild thickening of the urinary bladder, which may be due to cystitis. Mild bilateral hydronephrosis without evidence of urolithiasis or hydroureter. Diffuse sclerotic metastasis with no pathologic fracture. This may be secondary to rectal cancer, as there circumferential thickening with a left perirectal lymph node. Assessment & Plan - Diagnosis (1) Acute kidney injury (JAMESON) with acute tubular necrosis (ATN) Is this a current diagnosis for this admission?: Yes Plan: The patient has got a obvious JAMESON with uremia in the face of obstructive uropathy and likely pre renal issues. Check labs to rule out possibility of rhabdomyolysis. Patient is confused and disoriented and will need to be dialyzed. Discussed with hospitalist for getting temporary dialysis Alexis catheter has been done in the right groin. Patient subsequently seen on dialysis visit undergoing issues. Patient is pleasantly confused and disoriented. Therefore consent could not be obtained from the patient. Try to talk with his Wilma Saba multiple times on the phone but she was unavailable. Therefore consent was given between me and Dr. Olson/hospitalist. Plan to remove no fluid. We will see how he responds to dialysis. He may need dialysis again tomorrow. Dialysis orders reviewed with treating dialysis nurse. (2) Uremia Is this a current diagnosis for this admission?: Yes Plan: Patient has got uremic encephalopathy. Does not have any signs of pericarditis. See how he responds to gentle dialysis. (3) Acute metabolic encephalopathy Is this a current diagnosis for this admission?: Yes Plan: Mentioned earlier. See the response to dialysis. (4) Hypocalcemia Plan: Corrected calcium is better. No evidences of tetany. Started Calcitrol for renal osteodystrophy. Will continue on p.o. calcium replacement including Ca carbonate as binders. (5) Anemia Qualifiers: Anemia type: unspecified type Qualified Code(s): D64.9 - Anemia, unspecified Is this a current diagnosis for this admission?: Yes Plan: Recommend transfusions. We will start him on erythropoietin. (6) Hydronephrosis Qualifiers: Hydronephrosis type: other Qualified Code(s): N13.39 - Other hydronephrosis Is this a current diagnosis for this admission?: Yes Plan: Currently has got Sneed catheter. Ideally I would leave the Nseed catheter in as we make referral to urologist hopefully to be seen as an outpatient. (7) Hypertension Qualifiers: Hypertension type: essential hypertension Qualified Code(s): I10 - Essential (primary) hypertension Is this a current diagnosis for this admission?: Yes Plan: Controlled. Monitor. (8) Renal osteodystrophy Plan: Start calcitriol. Start calcium carbonate as binders for phosphorus of 14. (9) Bony metastasis Plan: Patient has got diffuse sclerotic lesions in his thoracic lumbar and sacral spines and right ninth rib without any evidence of pathologic fracture seen on a non contrasted CT scan. Surprisingly his alkaline phosphatase is normal with a low calcium. Also seen on CT scan was a circumferential thick left lymph node possibly indicating that he may have rectal cancer with bony mets. This needs to be looked into once stable.
[2020-11-27] MEDS: ONDANSETRON HCL INJ/PF 4 MG/2 ML SDV IV PRN (13:30)
[2020-11-27] MEDS ORDERED: TUBERCULIN,PURIF.PROT.DERIV. 5 TU/0.1 ML TEST 1 ML VIAL ID PRN (14:00)
[2020-11-27] MEDS ORDERED: EPOETIN ALFA-EPBX 2,000 UNIT, EPOETIN ALFA-EPBX 3,000 UNIT, EPOETIN ALFA-EPBX 20,000 UN... IV PRN ×4 (14:00)
[2020-11-27] MEDS ORDERED: ALBUMIN HUMAN 12.5 GM/50 ML RTUINJ IV ONE (14:30)
[2020-11-27] MEDS: CALCIUM CARBONATE 500 MG TAB.CHEW PO SCH ×2 (18:40→23:30)
[2020-11-28] MEDS: HEPARIN SOD (PORCINE) 5,000 UNIT/ML 1 ML VIAL SUBCUT SCH ×3 (05:21→21:17)
[2020-11-28] MEDS: PANTOPRAZOLE SODIUM 20 MG TABLET.DR PO SCH (05:21)
[2020-11-28 05:42] LABS: ABSOLUTE EOSINOPHILS # (AUTO) 0.2 10^3/uL (0.0-0.6); ABSOLUTE LYMPHOCYTES (AUTO) 0.5 10^3/uL (0.5-4.7); ABSOLUTE MONOCYTES (AUTO) 0.4 10^3/uL (0.1-1.4); ABSOLUTE NEUT (AUTO) 3.6 10^3/uL (1.7-8.2); BASOPHILS % (AUTO) 0.7 % (0-2); EOSINOPHILS % (AUTO) 4.4 % (0-6); HEMATOCRIT 32.3 % (37.9-51.0); LYMPHOCYTES % (AUTO) 11.3 % (13-45); MEAN CORPUSCULAR HEMOGLOBIN 29.1 pg (27.0-33.4); MEAN CORPUSCULAR HGB CONC 34.7 g/dL (32.0-36.0); MONOCYTES % (AUTO) 8.5 % (3-13); PLATELET COUNT 229 10^3/uL (150-450); RED BLOOD COUNT 3.86 10^6/uL (4.35-5.55); RED CELL DISTRIBUTION WIDTH 16.5 % (11.5-14.0); SEGMENTED NEUTROPHILS % (AUTO) 75.1 % (42-78); TOTAL CELLS COUNTED % (AUTO) 100 %; WHITE BLOOD COUNT 4.8 10^3/uL (4.0-10.5)
[2020-11-28 05:46] LABS: HEMOGLOBIN 11.2 g/dL (13.5-17.0); MEAN CORPUSCULAR VOLUME 84 fl (80-97)
[2020-11-28 06:04] LABS: ALBUMIN 3.7 g/dL (3.5-5.0); ALKALINE PHOSPHATASE 58 U/L (38-126); ANION GAP 17 (5-19); ASPARTATE AMINO TRANSFERASE 23 U/L (17-59); BILIRUBIN,DIRECT 0.4 mg/dL (0.0-0.4); BILIRUBIN,TOTAL 0.4 mg/dL (0.2-1.3); CALCIUM 8.1 mg/dL (8.4-10.2); CARBON DIOXIDE 23 mmol/L (22-30); CHLORIDE 99 mmol/L (98-107); GLUCOSE 86 mg/dL (75-110); POTASSIUM 4.1 mmol/L (3.6-5.0); TOTAL PROTEIN 6.5 g/dL (6.3-8.2)
[2020-11-28 06:26] LABS: BLOOD UREA NITROGEN 118 mg/dL (7-20)
[2020-11-28 06:37] LABS: HEPATITS B SURFACE ANTIGEN Negative (Negative)
[2020-11-28 07:55] LABS: HEPATITIS B CORE AB TOT Negative (Negative)
[2020-11-28] MEDS: CALCIUM CARBONATE 600 MG/VITAMIN D3 400 UNIT TABLET PO SCH (10:59)
[2020-11-28] MEDS: CALCIUM CARBONATE 500 MG TAB.CHEW PO SCH ×4 (10:59→21:15)
[2020-11-28] MEDS: CALCITRIOL 0.25 MCG CAPSULE PO SCH (10:59)
[2020-11-28] MEDS: PANTOT AC/MIN OIL/PET HY-PHL OINT 50 GM TOP SCH ×2 (10:59→17:40)
--- NOTE | 2020-11-28 11:24 | Progress Note ---
Provider Note Provider Note: Patient is altered, confused, disoriented, agitated, pulling out his IVs x2 and stating he is going to leave the hospital. He has refused all medications, telemetry, nursing care, etc. this morning. PCT in room currently trying to keep him calm and avoid having him pull out his Sneed catheter or HD-catheter. He is aware that he is in a hospital, but does not know the year, president, why he is here or what will happen if he leaves. When I tried to explain the risks of leaving AMA, he is unable to follow the conversation or repeat back to me why he requires hospitalization or the risks of leaving the hospital. He does not have capacity to make decisions at this time due to uremic encephalopathy and he is a danger to himself. I have discussed need for a sitter with nursing supervisor floor assembly. I have ordered Haldol 5 mg IM x1 due to severe agitation, high fall risk. I will consult psych to request a second capacity evaluation, as I suspect he may require more HD sessions before he will be back to his baseline mental status. I spoke with his , Wilma Saba, to update her on the situation. She tells me that he is very unwell and she has repeatedly told him that he needs to stay in the hospital, but he won't listen to her. She agrees that he sounds confused, and that his current state is very different from his baseline mental status. She is on her way in to the hospital to be with him and to help keep him calm.
--- NOTE | 2020-11-28 11:58 | PDOC CONSULTATION ---
Consultation Consult Date: 11/28/20 Provider Consulted: TREVER GONZALEZ Consult reason:: possible metastasis, abnormal CT scan showing possible thickening in the colon. will need colonoscopy History of Present Illness Admission Date/PCP: 11/25/20 18:09 History of Present Illness: LINDA COOPER is a 60 year old male asked to see this patient by the Hospitalist admitted and currently noted to have uremic encephalopathy going to be dialysed patient noted to have metastasis to bone on CT scan also noted to have a circumferential thickening in the rectum will need colonoscopy to establish the source patient may have difficult time with the prep given present mental status will try to schedule however Past Medical History Cardiac Medical History: Reports: Hypertension Denies: Congestive Heart Failure, Myocardial Infarction Pulmonary Medical History: Denies: Asthma, Chronic Obstructive Pulmonary Disease (COPD), Sleep Apnea EENT Medical History: Denies: Cataracts, Ears, Nose, Throat Endocrine Medical History: Denies: Diabetes Mellitus Type 1, Diabetes Mellitus Type 2 Renal/ Medical History: Reports: Other - Single episode acute kidney injury 6 months ago Denies: Chronic Kidney Disease Malignancy Medical History: Reports: None GI Medical History: Denies: Cirrhosis, Diverticulitis, Gastroesophageal Reflux Disease Psychiatric Medical History: Denies: Alcohol Dependency, Depression, Tobacco Dependency Traumatic Medical History: Reports: None Hematology: Denies: Anemia, Hemophilia, Sickle Cell Disease Infectious Medical History: Reports: None Past Surgical History Past Surgical History: Reports: None Social History Lives with: Family Smoking Status: Unknown if Ever Smoked Electronic Cigarette use?: No Frequency of Alcohol Use: Rare Hx Recreational Drug Use: Yes Drugs: None Hx Prescription Drug Abuse: No - Advance Directive Resuscitation Status: Full Code Family History Family History: Malignancy Parental Family History Reviewed: Yes Children Family History Reviewed: Unknown Sibling(s) Family History Reviewed.: Unknown Medication/Allergy Home Medications: Tamsulosin HCl [Flomax 0.4 mg Cap.sr] 0.4 mg PO DAILY 11/26/20 Allergies/Adverse Reactions: No Known Allergies Allergy (Unverified 04/17/20 16:22) Review of Systems Constitutional: ABSENT: fever(s) Eyes: ABSENT: visual disturbances Ears: ABSENT: hearing changes Nose, Mouth, and Throat: ABSENT: mouth pain, sore throat Cardiovascular: ABSENT: orthropnea Respiratory: ABSENT: dyspnea, hemoptysis Gastrointestinal: ABSENT: hematemesis, hematochezia, melena Genitourinary: ABSENT: dysuria, hematuria Musculoskeletal: ABSENT: deformity, joint swelling Integumentary: ABSENT: pruritus Neurological: ABSENT: syncope, tingling Endocrine: ABSENT: polydipsia, polyphagia, polyuria Hematologic/Lymphatic: ABSENT: easy bruising Physical Exam Vital Signs: Temp Pulse Resp BP Pulse Ox 97.6 F 102 H 18 150/98 H 100 11/28/20 08:46 11/27/20 23:29 11/27/20 23:29 11/27/20 23:29 11/27/20 23:29 Intake & Output 11/27/20 11/28/20 11/29/20 06:59 06:59 06:59 Intake Total 1951 1632 Output Total 2400 3500 Balance -449 -1868 Weight 58.7 kg 55.5 kg General appearance: PRESENT: no acute distress Head exam: PRESENT: atraumatic, normocephalic Eye exam: PRESENT: EOMI, PERRLA. ABSENT: nystagmus, periorbital swelling, scleral icterus Mouth exam: PRESENT: moist, neck supple Throat exam: ABSENT: tonsillar exudate, tonsillogmegaly Neck exam: ABSENT: meningismus, tenderness, thyromegaly Respiratory exam: PRESENT: symmetrical, unlabored. ABSENT: tachypnea Cardiovascular exam: PRESENT: RRR, +S1, +S2 GI/Abdominal exam: PRESENT: soft. ABSENT: rebound, rigid, tenderness Extremities exam: ABSENT: joint swelling Neurological exam: PRESENT: alert, awake Focused psych exam: ABSENT: restlessness Skin exam: PRESENT: normal color. ABSENT: mottled, pallor, urticaria, vesicles Results Laboratory Results: 11/28/20 04:27 11/28/20 04:27 11/24/20 11/28/20 11/28/20 20:16 04:27 04:27 WBC 4.8 RBC 3.86 L Hgb 11.2 L D Hct 32.3 L MCV 84 D MCH 29.1 MCHC 34.7 RDW 16.5 H Plt Count 229 Seg Neutrophils % 75.1 Sodium 139.3 Potassium 4.1 Chloride 99 Carbon Dioxide 23 Anion Gap 17 BUN 118 H D Creatinine 17.88 H Est GFR ( Amer) 3 L Glucose 86 Calcium 8.1 L Magnesium 1.9 Total Bilirubin 0.4 AST 23 Alkaline Phosphatase 58 Total Protein 6.5 Albumin 3.7 Blood Type O POSITIVE Antibody Screen NEGATIVE 11/25/20 20:14 Sneed Catheter Urine Culture - Final NO GROWTH 2 DAYS 11/27/20 04:50 Creatine Kinase 296 H Impressions: Chest X-Ray 11/24/20 16:04 IMPRESSION: NO ACUTE RADIOGRAPHIC FINDING IN THE CHEST. Abdomen/Pelvis CT 11/24/20 20:51 IMPRESSION: Satisfactory position with a Sneed catheter. Mild thickening of the urinary bladder, which may be due to cystitis. Mild bilateral hydronephrosis without evidence of urolithiasis or hydroureter. Diffuse sclerotic metastasis with no pathologic fracture. This may be secondary to rectal cancer, as there circumferential thickening with a left perirectal lymph node. Assessment & Plan - Diagnosis (1) Abnormal CT scan Plan: patient noted to have abnormal thickening in the colon will need colonoscopy prep might be an issue spoke to Dr Meelndez will also need EGD as well due to anemia Risks, benefits and alternatives are explained to the patient in detail further recommendations to follow (2) Anemia Qualifiers: Anemia type: unspecified type Qualified Code(s): D64.9 - Anemia, unspecifi ed Is this a current diagnosis for this admission?: Yes Plan: will schedule both EGD and colonoscopy if prep is not adequate, may be able to proceed with just EGD - Time Time Spent: 50 to 70 Minutes
[2020-11-28] MEDS ORDERED: HALOPERIDOL LACTATE INJ 5 MG/1 ML VIAL IM ONE (12:00)
--- NOTE | 2020-11-28 12:46 | PDOC PROGRESS REPORT ---
Subjective Date:: 11/28/20 Reason For Visit: Patient seen today. He is awake and alert though still pleasantly confused. He underwent uneventful dialysis yesterday without any removal of fluid. His labs are improved. However he still is uremic. He denies any history of chest pain or shortness of breath. Labs and medications were reviewed.He is making good urine output. Physical Exam Vital Signs: Temp Pulse Resp BP Pulse Ox 97.6 F 102 H 18 150/98 H 100 11/28/20 08:46 11/27/20 23:29 11/27/20 23:29 11/27/20 23:29 11/27/20 23:29 Intake & Output 11/27/20 11/28/20 11/29/20 06:59 06:59 06:59 Intake Total 1951 1632 Output Total 2400 3500 Balance -449 -1868 Weight 58.7 kg 55.5 kg General appearance: PRESENT: no acute distress Respiratory exam: PRESENT: clear to auscultation wilver. ABSENT: crackles Cardiovascular exam: PRESENT: +S1, +S2. ABSENT: rubs GI/Abdominal exam: PRESENT: normal bowel sounds, soft. ABSENT: organomegaly, tenderness Extremities exam: ABSENT: pedal edema Neurological exam: PRESENT: alert, altered, awake Skin exam: ABSENT: erythema, mottled, rash Results Laboratory Results: 11/28/20 04:27 11/28/20 04:27 11/24/20 11/28/20 11/28/20 20:16 04:27 04:27 WBC 4.8 RBC 3.86 L Hgb 11.2 L D Hct 32.3 L MCV 84 D MCH 29.1 MCHC 34.7 RDW 16.5 H Plt Count 229 Seg Neutrophils % 75.1 Sodium 139.3 Potassium 4.1 Chloride 99 Carbon Dioxide 23 Anion Gap 17 BUN 118 H D Creatinine 17.88 H Est GFR ( Amer) 3 L Glucose 86 Calcium 8.1 L Magnesium 1.9 Total Bilirubin 0.4 AST 23 Alkaline Phosphatase 58 Total Protein 6.5 Albumin 3.7 Blood Type O POSITIVE Antibody Screen NEGATIVE 11/25/20 20:14 Sneed Catheter Urine Culture - Final NO GROWTH 2 DAYS 11/27/20 04:50 Creatine Kinase 296 H Impressions: Chest X-Ray 11/24/20 16:04 IMPRESSION: NO ACUTE RADIOGRAPHIC FINDING IN THE CHEST. Abdomen/Pelvis CT 11/24/20 20:51 IMPRESSION: Satisfactory position with a Sneed catheter. Mild thickening of the urinary bladder, which may be due to cystitis. Mild bilateral hydronephrosis without evidence of urolithiasis or hydroureter. Diffuse sclerotic metastasis with no pathologic fracture. This may be secondary to rectal cancer, as there circumferential thickening with a left perirectal lymph node. Assessment & Plan - Diagnosis (1) Acute kidney injury (JAMESON) with acute tubular necrosis (ATN) Is this a current diagnosis for this admission?: Yes Plan: The patient has got a obvious JAMESON with uremia in the face of obstructive uropathy and likely pre renal issues.His renal numbers are improving with good urine output. Follow-up on clinical evaluation tomorrow along with renal labs to determine if he needs to be dialyzed again tomorrow. (2) Uremia Is this a current diagnosis for this admission?: Yes Plan: Patient has got uremic encephalopathy. Does not have any signs of pericarditis. See how he responds to gentle dialysis. (3) Acute metabolic encephalopathy Is this a current diagnosis for this admission?: Yes Plan: Mentioned earlier. See the response to dialysis. (4) Hypocalcemia Plan: Corrected calcium is better. No evidences of tetany. Started Calcitrol for renal osteodystrophy. Will continue on p.o. calcium replacement including Ca carbonate as binders. (5) Anemia Qualifiers: Anemia type: unspecified type Qualified Code(s): D64.9 - Anemia, unspecified Is this a current diagnosis for this admission?: Yes Plan: His anemia along with presentation on the CT scan suggestive of possible rectal cancer warrants a GI consult and further evaluations to exclude rectal cancer. Meanwhile monitor hemoglobin closely. We will start him on erythropoietin. (6) Hydronephrosis Qualifiers: Hydronephrosis type: other Qualified Code(s): N13.39 - Other hydronephrosis Is this a current diagnosis for this admission?: Yes Plan: Currently has got Sneed catheter. CT scan showed bilateral hydronephrosis. Ideally I would leave the Sneed catheter in as we make referral to urologist hopefully to be seen as an outpatient. (7) Hypertension Qualifiers: Hypertension type: essential hypertension Qualified Code(s): I10 - Essential (primary) hypertension Is this a current diagnosis for this admission?: Yes Plan: Controlled. Monitor. (8) Renal osteodystrophy Plan: Start calcitriol. Start calcium carbonate as binders for phosphorus of 14. (9) Bony metastasis Plan: Patient has got diffuse sclerotic lesions in his thoracic lumbar and sacral spines and right ninth rib without any evidence of pathologic fracture seen on a non contrasted CT scan. Surprisingly his alkaline phosphatase is normal with a low calcium. Also seen on CT scan was a circumferential thick left lymph node possibly indicating that he may have rectal cancer with bony mets. This needs to be looked into once stable.
[2020-11-28] MEDS ORDERED: POLYETHYLENE GLYCOL 3350 238 GM POWDER PO ONE (14:30)
[2020-11-28 15:13] LABS: ANTINUCLEAR ANTIBODIES Negative (Negative)
--- NOTE | 2020-11-28 20:03 | PDOC PROGRESS REPORT ---
Subjective Date:: 11/28/20 Subjective:: Confused/agitated today. Please see provider note from this AM. Reason For Visit: UREMIA,RENAL FAILURE Physical Exam Vital Signs: Temp Pulse Resp BP Pulse Ox 97.9 F 105 H 17 165/95 H 99 11/28/20 15:31 11/28/20 15:31 11/28/20 15:31 11/28/20 15:31 11/28/20 15:31 Intake & Output 11/27/20 11/28/20 11/29/20 06:59 06:59 06:59 Intake Total 1951 1632 236 Output Total 2400 3500 575 Balance -449 -8294 -339 Weight 58.7 kg 55.5 kg General appearance: PRESENT: severe distress Eye exam: ABSENT: scleral icterus Mouth exam: PRESENT: dry mucosa Throat exam: ABSENT: post pharyngeal erythema Neck exam: ABSENT: JVD Respiratory exam: PRESENT: clear to auscultation wilver, unlabored Cardiovascular exam: PRESENT: tachycardia GI/Abdominal exam: PRESENT: normal bowel sounds, soft. ABSENT: tenderness Gentrourinary exam: PRESENT: indwelling catheter Extremities exam: ABSENT: pedal edema Musculoskeletal exam: PRESENT: ambulatory Neurological exam: PRESENT: altered, awake, oriented to person. ABSENT: oriented to place, oriented to time, oriented to situation Psychiatric exam: PRESENT: agitated Focused psych exam: PRESENT: paranoid, restlessness Skin exam: ABSENT: jaundice, rash Results Laboratory Results: 11/28/20 04:27 11/28/20 04:27 11/28/20 11/28/20 04:27 04:27 WBC 4.8 RBC 3.86 L Hgb 11.2 L D Hct 32.3 L MCV 84 D MCH 29.1 MCHC 34.7 RDW 16.5 H Plt Count 229 Seg Neutrophils % 75.1 Sodium 139.3 Potassium 4.1 Chloride 99 Carbon Dioxide 23 Anion Gap 17 BUN 118 H D Creatinine 17.88 H Est GFR ( Amer) 3 L Glucose 86 Calcium 8.1 L Magnesium 1.9 Total Bilirubin 0.4 AST 23 Alkaline Phosphatase 58 Total Protein 6.5 Albumin 3.7 11/27/20 04:50 Creatine Kinase 296 H Impressions: Chest X-Ray 11/24/20 16:04 IMPRESSION: NO ACUTE RADIOGRAPHIC FINDING IN THE CHEST. Abdomen/Pelvis CT 11/24/20 20:51 IMPRESSION: Satisfactory position with a Sneed catheter. Mild thickening of the urinary bladder, which may be due to cystitis. Mild bilateral hydronephrosis without evidence of urolithiasis or hydroureter. Diffuse sclerotic metastasis with no pathologic fracture. This may be secondary to rectal cancer, as there circumferential thickening with a left perirectal lymph node. Assessment and Plan - Diagnosis (1) Acute kidney injury (JAMESON) with acute tubular necrosis (ATN) Is this a current diagnosis for this admission?: Yes (2) Acute metabolic encephalopathy Is this a current diagnosis for this admission?: Yes (3) Anemia Qualifiers: Anemia type: unspecified type Qualified Code(s): D64.9 - Anemia, unspecified Is this a current diagnosis for this admission?: Yes (4) Bony metastasis Is this a current diagnosis for this admission?: Yes (5) Hematuria Qualifiers: Hematuria type: unspecified type Qualified Code(s): R31.9 - Hematuria, unspecified Is this a current diagnosis for this admission?: Yes (6) Hydronephrosis Qualifiers: Hydronephrosis type: other Qualified Code(s): N13.39 - Other hydronephrosis Is this a current diagnosis for this admission?: Yes (7) Hypertension Qualifiers: Hypertension type: essential hypertension Qualified Code(s): I10 - Essential (primary) hypertension Is this a current diagnosis for this admission?: Yes (8) Hypocalcemia Is this a current diagnosis for this admission?: Yes (9) Uremia Is this a current diagnosis for this admission?: Yes (10) Urinary retention Is this a current diagnosis for this admission?: Yes - Plan Summary Summary: Acute kidney injury (JAMESON) with acute tubular necrosis (ATN): due to urinary obstruction, s/p Sneed catheter placement, and dehydration, which is improving with IVF. He likely has underlying long-standing CKD given that he presented with elevated K/Phos/PTH and low Ca/hgb. - Nephrology consulted - continue IVF - he will likely need more HD sessions this hospitalization - R groin HD catheter placed by general surgery Urinary retention c/b Hydronephrosis s/p Sneed catheter placement - outpatient urology f/u - he will need to be discharge with Sneed in place Bony metastases - concern for metastatic colon/rectal cancer based on CT showing thickened r ectum - GI consulted, plan for colonoscopy tomorrow if he can tolerate the prep today Anemia - due to malignancy vs hematuria vs long-standing CKD - iron studies - goal hgb >7 Uremic encephalopathy - anticipate improvement with above treatment - fall precautions - he does not have capacity to leave the hospital AMA at this time Essential Hypertension: uncontrolled but potentially related to agitation - medications adjusted DVT ppx: heparin Q8H - Time Time Spent with patient: 35 or more minutes Anticipated Discharge Disposition: Home, Self Care Anticipated Discharge Timeframe: unknown
[2020-11-29 00:36] LABS: HEPATITIS C QUANTITATION HCV Not Detected IU/mL (.)
[2020-11-29] MEDS: HEPARIN SOD (PORCINE) 5,000 UNIT/ML 1 ML VIAL SUBCUT SCH ×3 (05:28→22:13)
[2020-11-29] MEDS: PANTOPRAZOLE SODIUM 20 MG TABLET.DR PO SCH (05:28)
[2020-11-29 05:40] LABS: HEMATOCRIT 32.6 % (37.9-51.0); HEMOGLOBIN 10.9 g/dL (13.5-17.0); MEAN CORPUSCULAR HEMOGLOBIN 28.7 pg (27.0-33.4); MEAN CORPUSCULAR HGB CONC 33.4 g/dL (32.0-36.0); MEAN CORPUSCULAR VOLUME 86 fl (80-97); PLATELET COUNT 236 10^3/uL (150-450); RED CELL DISTRIBUTION WIDTH 16.3 % (11.5-14.0); WHITE BLOOD COUNT 5.4 10^3/uL (4.0-10.5)
[2020-11-29 05:53] LABS: BLOOD UREA NITROGEN 115 mg/dL (7-20); CALCIUM 8.5 mg/dL (8.4-10.2); CARBON DIOXIDE 22 mmol/L (22-30); CHLORIDE 99 mmol/L (98-107); GLUCOSE 97 mg/dL (75-110); POTASSIUM 4.1 mmol/L (3.6-5.0)
[2020-11-29 06:00] LABS: ANION GAP 20 (5-19)
[2020-11-29] MEDS ORDERED: PROPOFOL INJ 200 MG/20 ML VIAL IV ONE (07:11)
[2020-11-29] MEDS ORDERED: HEPARIN SOD (PORCINE) 1,000 UNIT/ML 10 ML VIAL IV PRN (08:10)
[2020-11-29] MEDS: CALCIUM CARBONATE 500 MG TAB.CHEW PO SCH ×4 (11:09→22:13)
[2020-11-29] MEDS: PANTOT AC/MIN OIL/PET HY-PHL OINT 50 GM TOP SCH ×2 (11:10→17:23)
[2020-11-29] MEDS: CALCIUM CARBONATE 600 MG/VITAMIN D3 400 UNIT TABLET PO SCH (11:10)
[2020-11-29] MEDS: CALCITRIOL 0.25 MCG CAPSULE PO SCH (11:10)
--- NOTE | 2020-11-29 11:30 | PDOC PROGRESS REPORT ---
Subjective Date:: 11/29/20 Reason For Visit: Patient seen today. Initially seen in the morning as he is awaiting for GI procedures-colonoscopy followed by EGD. Patient still remains pleasantly confused but seems to be more thoughtful in his responses. He denies any history of chest pain or shortness of breath. Unfortunately he was confused yesterday and pulled out his IV lines and therefore he did not get any IV f luids. Labs and medications reviewed today shows renal numbers rather static with no improvement as expected and hopeful. Subsequently seen while on dialysis. He is undergoing dialysis without any issues. Physical Exam Vital Signs: Temp Pulse Resp BP Pulse Ox 98.7 F 104 H 17 135/77 H 100 11/29/20 07:53 11/29/20 07:53 11/29/20 07:53 11/29/20 07:53 11/29/20 07:53 Intake & Output 11/28/20 11/29/20 11/30/20 06:59 06:59 06:59 Intake Total 1632 236 Output Total 3500 875 Balance -1868 -639 Weight 55.5 kg 52.9 kg 52.9 kg General appearance: PRESENT: no acute distress, cooperative Exam: Patient still remains confused and disoriented. Respiratory exam: PRESENT: clear to auscultation wilver, decreased breath sounds. ABSENT: crackles Cardiovascular exam: PRESENT: +S1, +S2. ABSENT: rubs GI/Abdominal exam: PRESENT: normal bowel sounds, soft. ABSENT: organomegaly, tenderness Extremities exam: ABSENT: pedal edema Neurological exam: PRESENT: altered Results Laboratory Results: 11/29/20 05:00 11/29/20 05:00 11/29/20 11/29/20 05:00 05:00 WBC 5.4 RBC 3.80 L Hgb 10.9 L Hct 32.6 L MCV 86 MCH 28.7 MCHC 33.4 RDW 16.3 H Plt Count 236 Sodium 140.6 Potassium 4.1 Chloride 99 Carbon Dioxide 22 Anion Gap 20 H BUN 115 H Creatinine 17.78 H Est GFR ( Amer) 3 L Glucose 97 Calcium 8.5 11/27/20 04:50 Creatine Kinase 296 H Impressions: Chest X-Ray 11/24/20 16:04 IMPRESSION: NO ACUTE RADIOGRAPHIC FINDING IN THE CHEST. Abdomen/Pelvis CT 11/24/20 20:51 IMPRESSION: Satisfactory position with a Sneed catheter. Mild thickening of the urinary bladder, which may be due to cystitis. Mild bilateral hydronephrosis without evidence of urolithiasis or hydroureter. Diffuse sclerotic metastasis with no pathologic fracture. This may be secondary to rectal cancer, as there circumferential thickening with a left perirectal lymph node. Assessment & Plan - Diagnosis (1) Acute kidney injury (JAMESON) with acute tubular necrosis (ATN) Is this a current diagnosis for this admission?: Yes Plan: The patient has got a obvious JAMESON with uremia in the face of obstructive uropathy and likely pre renal issues.His renal numbers are static but with good urine output.Patient however continues to be uremic and therefore is continuing to get dialysis. Monitor response postdialysis. (2) Uremia Is this a current diagnosis for this admission?: Yes Plan: Patient has got uremic encephalopathy. Does not have any signs of pericarditis. See how he responds to gentle dialysis. (3) Acute metabolic encephalopathy Is this a current diagnosis for this admission?: Yes Plan: Mentioned earlier. See the response to dialysis. (4) Hypocalcemia Is this a current diagnosis for this admission?: Yes Plan: Corrected calcium is better. No evidences of tetany. Started Calcitrol for renal osteodystrophy. Will continue on p.o. calcium replacement including Ca carbonate as binders. (5) Anemia Qualifiers: Anemia type: unspecified type Qualified Code(s): D64.9 - Anemia, unspecified Is this a current diagnosis for this admission?: Yes Plan: His anemia along with presentation on the CT scan suggestive of possible rectal cancer warrants a GI consult and further evaluations to exclude rectal cancer. Meanwhile monitor hemoglobin closely. We will start him on erythropoietin. (6) Hydronephrosis Qualifiers: Hydronephrosis type: other Qualified Code(s): N13.39 - Other hydronephrosis Is this a current diagnosis for this admission?: Yes Plan: Currently has got Sneed catheter. CT scan showed bilateral hydronephrosis. Ideally I would leave the Sneed catheter in as we make referral to urologist hopefully to be seen as an outpatient. (7) Hypertension Qualifiers: Hypertension type: essential hypertension Qualified Code(s): I10 - Essential (primary) hypertension Is this a current diagnosis for this admission?: Yes Plan: Controlled. Monitor. (8) Renal osteodystrophy Plan: Start calcitriol. Start calcium carbonate as binders for phosphorus of 14. (9) Bony metastasis Is this a current diagnosis for this admission?: Yes Plan: Patient has got diffuse sclerotic lesions in his thoracic lumbar and sacral spines and right ninth rib without any evidence of pathologic fracture seen on a non contrasted CT scan. Surprisingly his alkaline phosphatase is normal with a low calcium. Also seen on CT scan was a circumferential thick left lymph node possibly indicating that he may have rectal cancer with bony mets. This needs to be looked into once stable.
--- NOTE | 2020-11-29 19:02 | PDOC PROGRESS REPORT ---
Subjective Date:: 11/29/20 Subjective:: Patient is much more alert, awake today. Remains pleasantly confused. Colonoscopy was cancelled unfortunately this morning due to patient's mental status. Reason For Visit: UREMIA,RENAL FAILURE Physical Exam Vital Signs: Temp Pulse Resp BP Pulse Ox 98.7 F 94 17 135/77 H 100 11/29/20 10:00 11/29/20 14:00 11/29/20 07:53 11/29/20 07:53 11/29/20 07:53 Intake & Output 11/28/20 11/29/20 11/30/20 06:59 06:59 06:59 Intake Total 1632 236 Output Total 3500 875 0 Balance -1868 -639 0 Weight 55.5 kg 52.9 kg 52.9 kg General appearance: PRESENT: no acute distress, cooperative Eye exam: ABSENT: scleral icterus Mouth exam: PRESENT: moist Throat exam: ABSENT: post pharyngeal erythema Neck exam: ABSENT: JVD Respiratory exam: PRESENT: clear to auscultation wilver Cardiovascular exam: PRESENT: RRR GI/Abdominal exam: PRESENT: normal bowel sounds, soft. ABSENT: tenderness Gentrourinary exam: PRESENT: indwelling catheter Extremities exam: ABSENT: pedal edema Musculoskeletal exam: PRESENT: ambulatory Neurological exam: PRESENT: alert, awake, oriented to person. ABSENT: oriented to place, oriented to time, oriented to situation Psychiatric exam: PRESENT: flat affect Skin exam: ABSENT: jaundice, rash Results Laboratory Results: 11/29/20 05:00 11/29/20 05:00 11/29/20 11/29/20 05:00 05:00 WBC 5.4 RBC 3.80 L Hgb 10.9 L Hct 32.6 L MCV 86 MCH 28.7 MCHC 33.4 RDW 16.3 H Plt Count 236 Sodium 140.6 Potassium 4.1 Chloride 99 Carbon Dioxide 22 Anion Gap 20 H BUN 115 H Creatinine 17.78 H Est GFR ( Amer) 3 L Glucose 97 Calcium 8.5 11/27/20 04:50 Creatine Kinase 296 H Impressions: Chest X-Ray 11/24/20 16:04 IMPRESSION: NO ACUTE RADIOGRAPHIC FINDING IN THE CHEST. Abdomen/Pelvis CT 11/24/20 20:51 IMPRESSION: Satisfactory position with a Sneed catheter. Mild thickening of the urinary bladder, which may be due to cystitis. Mild bilateral hydronephrosis without evidence of urolithiasis or hydroureter. Diffuse sclerotic metastasis with no pathologic fracture. This may be secondary to rectal cancer, as there circumferential thickening with a left perirectal lymph node. Assessment and Plan - Diagnosis (1) Acute kidney injury (JAMESON) with acute tubular necrosis (ATN) Is this a current diagnosis for this admission?: Yes (2) Acute metabolic encephalopathy Is this a current diagnosis for this admission?: Yes (3) Anemia Qualifiers: Anemia type: unspecified type Qualified Code(s): D64.9 - Anemia, unspecified Is this a current diagnosis for this admission?: Yes (4) Bony metastasis Is this a current diagnosis for this admission?: Yes (5) Hematuria Qualifiers: Hematuria type: unspecified type Qualified Code(s): R31.9 - Hematuria, uns pecified Is this a current diagnosis for this admission?: Yes (6) Hydronephrosis Qualifiers: Hydronephrosis type: other Qualified Code(s): N13.39 - Other hydronephrosis Is this a current diagnosis for this admission?: Yes (7) Hypertension Qualifiers: Hypertension type: essential hypertension Qualified Code(s): I10 - Essential (primary) hypertension Is this a current diagnosis for this admission?: Yes (8) Hypocalcemia Is this a current diagnosis for this admission?: Yes (9) Uremia Is this a current diagnosis for this admission?: Yes (10) Urinary retention Is this a current diagnosis for this admission?: Yes - Plan Summary Summary: Acute kidney injury (JAMESON) on likely CKD: due to urinary obstruction, s/p Sneed catheter placement, and dehydration, which is improving with IVF. He likely has underlying long-standing CKD given that he presented with elevated K/Phos/PTH and low Ca/hgb. - Nephrology consulted - continue IVF - he will likely need more HD sessions this hospitalization - R groin HD catheter placed by general surgery Urinary retention c/b Hydronephrosis s/p Sneed catheter placement - outpatient urology f/u - he will need to be discharge with Sneed in place Bony metastases: concern for metastatic colon/rectal cancer based on CT showing thickened rectum - GI consulted 11/28, plan was for colonoscopy on 11/29 but he was not able to tolerate the prep and the procedure was cancelled until his mental status improves Anemia - due to malignancy vs hematuria vs long-standing CKD - iron studies - Epo - goal hgb >7 Uremic encephalopathy - anticipate improvement with above treatment - fall precautions - he does not have capacity to leave the hospital AMA at this time Essential Hypertension: much improved - medications adjusted DVT ppx: heparin Q8H - Time Time Spent with patient: 35 or more minutes Anticipated Discharge Disposition: Home, Self Care Anticipated Discharge Timeframe: unknown
[2020-11-29] MEDS: NORMAL SALINE 1000 ML 1,000 ML IV PRN ×3 (23:29→23:37)
[2020-11-30] MEDS: PANTOPRAZOLE SODIUM 20 MG TABLET.DR PO SCH (05:32)
[2020-11-30] MEDS: HEPARIN SOD (PORCINE) 5,000 UNIT/ML 1 ML VIAL SUBCUT SCH ×3 (05:32→22:02)
[2020-11-30] MEDS: NORMAL SALINE 1000 ML 1,000 ML IV PRN ×3 (05:32→22:14)
[2020-11-30 06:15] LABS: ANION GAP 9 (5-19); CALCIUM 7.9 mg/dL (8.4-10.2); CARBON DIOXIDE 26 mmol/L (22-30); CHLORIDE 103 mmol/L (98-107); GLUCOSE 89 mg/dL (75-110); POTASSIUM 4.4 mmol/L (3.6-5.0)
[2020-11-30 06:25] LABS: BLOOD UREA NITROGEN 69 mg/dL (7-20)
[2020-11-30] MEDS: TAMSULOSIN HCL 0.4 MG CAP.SR.24H PO SCH (09:12)
[2020-11-30] MEDS: CALCIUM CARBONATE 500 MG TAB.CHEW PO SCH ×4 (09:12→22:13)
[2020-11-30] MEDS: CALCITRIOL 0.25 MCG CAPSULE PO SCH (09:12)
[2020-11-30] MEDS: CALCIUM CARBONATE 600 MG/VITAMIN D3 400 UNIT TABLET PO SCH (09:12)
[2020-11-30] MEDS: PANTOT AC/MIN OIL/PET HY-PHL OINT 50 GM TOP SCH ×2 (09:12→17:07)
[2020-11-30] MEDS: ONDANSETRON HCL INJ/PF 4 MG/2 ML SDV IV PRN (11:28)
--- NOTE | 2020-11-30 11:37 | PDOC PROGRESS REPORT ---
Subjective Date:: 11/30/20 Reason For Visit: Patient seen today. He is more awake alert and responsive. Denies any history of chest pain shortness of breath. Labs and medications were reviewed. Good urine output.Uneventful dialysis yesterday without any extraction of any fluid. Physical Exam Vital Signs: Temp Pulse Resp BP Pulse Ox 97.9 F 95 16 150/94 H 100 11/30/20 08:58 11/30/20 07:58 11/30/20 07:58 11/30/20 07:58 11/30/20 07:58 Intake & Output 11/29/20 11/30/20 12/01/20 06:59 06:59 06:59 Intake Total 236 1544 550 Output Total 875 975 Balance -639 569 550 Weight 52.9 kg 54.7 kg General appearance: PRESENT: no acute distress Respiratory exam: PRESENT: clear to auscultation wilver, decreased breath sounds. ABSENT: crackles Cardiovascular exam: PRESENT: +S1, +S2. ABSENT: rubs GI/Abdominal exam: PRESENT: normal bowel sounds, soft. ABSENT: organomegaly, tenderness Extremities exam: ABSENT: pedal edema Neurological exam: PRESENT: alert, awake, oriented to person. ABSENT: oriented to place, oriented to time Results Laboratory Results: 11/29/20 05:00 11/30/20 04:32 11/30/20 04:32 Sodium 138.4 Potassium 4.4 Chloride 103 Carbon Dioxide 26 Anion Gap 9 BUN 69 H D Creatinine 10.36 H Est GFR ( Amer) 6 L Glucose 89 Calcium 7.9 L 11/27/20 04:50 Creatine Kinase 296 H Impressions: Chest X-Ray 11/24/20 16:04 IMPRESSION: NO ACUTE RADIOGRAPHIC FINDING IN THE CHEST. Abdomen/Pelvis CT 11/24/20 20:51 IMPRESSION: Satisfactory position with a Sneed catheter. Mild thickening of the urinary bladder, which may be due to cystitis. Mild bilateral hydronephrosis without evidence of urolithiasis or hydroureter. Diffuse sclerotic metastasis with no pathologic fracture. This may be secondary to rectal cancer, as there circumferential thickening with a left perirectal lymph node. Assessment & Plan - Diagnosis (1) Acute kidney injury (JAMESON) with acute tubular necrosis (ATN) Is this a current diagnosis for this admission?: Yes Plan: The patient has got a obvious JAMESON with uremia in the face of obstructive uropathy and likely pre renal issues.His renal numbers are static but with good urine output.Patient however continues to be uremic and therefore is continuing to get dialysis. Last dialysis was yesterday. Monitor response postdialysis.We'll reevaluate him tomorrow before any further dialysis. Dr. Castle is covering me for tomorrow. (2) Uremia Is this a current diagnosis for this admission?: Yes Plan: Patient has got uremic encephalopathy. Does not have any signs of pericarditis. See how he responds to gentle dialysis. (3) Acute metabolic encephalopathy Is this a current diagnosis for this admission?: Yes Plan: Mentioned earlier. See the response to dialysis. (4) Hypocalcemia Is this a current diagnosis for this admission?: Yes Plan: Corrected calcium is better. No evidences of tetany. Started Calcitrol for renal osteodystrophy. Will continue on p.o. calcium replacement including Ca carbonate as binders. (5) Anemia Qualifiers: Anemia type: unspecified type Qualified Code(s): D64.9 - Anemia, unspecified Is this a current diagnosis for this admission?: Yes Plan: His anemia along with presentation on the CT scan suggestive of possible rectal cancer warrants a GI consult and further evaluations to exclude rectal cancer. Meanwhile monitor hemoglobin closely. We will start him on erythropoietin. (6) Hydronephrosis Qualifiers: Hydronephrosis type: other Qualified Code(s): N13.39 - Other hydronephrosis Is this a current diagnosis for this admission?: Yes Plan: Currently has got Sneed catheter. CT scan showed bilateral hydronephrosis. Ideally I would leave the Sneed catheter in as we make referral to urologist hopefully to be seen as an outpatient. (7) Hypertension Qualifiers: Hypertension type: essential hypertension Qualified Code(s): I10 - Essential (primary) hypertension Is this a current diagnosis for this admission?: Yes Plan: Controlled. Monitor. (8) Renal osteodystrophy Plan: Start calcitriol. Start calcium carbonate as binders for phosphorus of 14. (9) Bony metastasis Is this a current diagnosis for this admission?: Yes Plan: Patient has got diffuse sclerotic lesions in his thoracic lumbar and sacral spin es and right ninth rib without any evidence of pathologic fracture seen on a non contrasted CT scan. Surprisingly his alkaline phosphatase is normal with a low calcium. Also seen on CT scan was a circumferential thick left lymph node possibly indicating that he may have rectal cancer with bony mets. This needs to be looked into once stable.
--- NOTE | 2020-11-30 15:13 | PDOC PROGRESS REPORT ---
Subjective Date:: 11/30/20 Subjective:: NAEO. Remains pleasantly confused today. Reason For Visit: UREMIA,RENAL FAILURE Physical Exam Vital Signs: Temp Pulse Resp BP Pulse Ox 98.1 F 89 17 130/90 H 98 11/30/20 11:38 11/30/20 14:00 11/30/20 11:38 11/30/20 11:38 11/30/20 11:38 Intake & Output 11/29/20 11/30/20 12/01/20 06:59 06:59 06:59 Intake Total 236 1544 1227 Output Total 875 975 Balance -103 069 5069 Weight 52.9 kg 54.7 kg General appearance: PRESENT: no acute distress, cooperative Eye exam: ABSENT: scleral icterus Mouth exam: PRESENT: moist Neck exam: ABSENT: JVD Respiratory exam: PRESENT: clear to auscultation wilver Cardiovascular exam: PRESENT: RRR GI/Abdominal exam: PRESENT: normal bowel sounds, soft. ABSENT: tenderness Gentrourinary exam: PRESENT: indwelling catheter Extremities exam: ABSENT: pedal edema Neurological exam: PRESENT: alert, awake, oriented to person, oriented to place. ABSENT: oriented to time, oriented to situation Psychiatric exam: PRESENT: flat affect Skin exam: ABSENT: jaundice, rash Results Laboratory Results: 11/29/20 05:00 11/30/20 04:32 11/30/20 04:32 Sodium 138.4 Potassium 4.4 Chloride 103 Carbon Dioxide 26 Anion Gap 9 BUN 69 H D Creatinine 10.36 H Est GFR ( Amer) 6 L Glucose 89 Calcium 7.9 L 11/27/20 04:50 Creatine Kinase 296 H Impressions: Chest X-Ray 11/24/20 16:04 IMPRESSION: NO ACUTE RADIOGRAPHIC FINDING IN THE CHEST. Abdomen/Pelvis CT 11/24/20 20:51 IMPRESSION: Satisfactory position with a Sneed catheter. Mild thickening of the urinary bladder, which may be due to cystitis. Mild bilateral hydronephrosis without evidence of urolithiasis or hydroureter. Diffuse sclerotic metastasis with no pathologic fracture. This may be secondary to rectal cancer, as there circumferential thickening with a left perirectal lymph node. Assessment and Plan - Diagnosis (1) Acute kidney injury (JAMESON) with acute tubular necrosis (ATN) Is this a current diagnosis for this admission?: Yes (2) Acute metabolic encephalopathy Is this a current diagnosis for this admission?: Yes (3) Anemia Qualifiers: Anemia type: unspecified type Qualified Code(s): D64.9 - Anemia, unspecified Is this a current diagnosis for this admission?: Yes (4) Bony metastasis Is this a current diagnosis for this admission?: Yes (5) Hematuria Qualifiers: Hematuria type: unspecified type Qualified Code(s): R31.9 - Hematuria, unspecified Is this a current diagnosis for this admission?: Yes (6) Hydronephrosis Qualifiers: Hydronephrosis type: other Qualified Code(s): N13.39 - Other hydronephrosis Is this a current diagnosis for this admission?: Yes (7) Hypertension Qualifiers: Hypertension type: essential hypertension Qualified Code(s): I10 - Essential (primary) hypertension Is this a current diagnosis for this admission?: Yes (8) Hypocalcemia Is this a current diagnosis for this admission?: Yes (9) Uremia Is this a current diagnosis for this admission?: Yes (10) Urinary retention Is this a current diagnosis for this admission?: Yes - Plan Summary Summary: Non-oliguric Acute kidney injury on likely CKD: due to combination of de hydration and chronic urinary obstruction. Now improving with IVF and Sneed catheter placement. He likely has underlying long-standing CKD given that he presented with elevated K/Phos/PTH and low Ca/hgb. - Nephrology consulted - continue IVF - last HD received on 11/29, possibly will get HD again tomorrow - R groin HD catheter placed by general surgery Urinary retention c/b Hydronephrosis s/p Sneed catheter placement - outpatient urology f/u - he will need to be discharged with Sneed in place Bony metastases: concern for metastatic colon/rectal cancer based on CT showing thickened rectum - GI consulted 11/28, plan was for colonoscopy on 11/29 but he was not able to tolerate the prep and the procedure was cancelled until his mental/clinical status improves Anemia - due to malignancy vs hematuria vs long-standing CKD - iron studies - Epo - goal hgb >7 Uremic encephalopathy - anticipate improvement with above treatment - fall precautions - he does not have capacity to leave the hospital AMA Essential Hypertension: much improved - medications adjusted DVT ppx: heparin Q8H - Time Time Spent with patient: 35 or more minutes Anticipated Discharge Disposition: Home, Self Care Anticipated Discharge Timeframe: unknown
[2020-11-30] MEDS ORDERED: LABETALOL HCL INJ 20 MG/4 ML DISP.SYRIN IV ONE (22:00)
[2020-12-01] MEDS: HEPARIN SOD (PORCINE) 5,000 UNIT/ML 1 ML VIAL SUBCUT SCH ×3 (06:09→21:26)
[2020-12-01] MEDS: PANTOPRAZOLE SODIUM 20 MG TABLET.DR PO SCH (06:17)
[2020-12-01 07:45] LABS: ANION GAP 9 (5-19); BLOOD UREA NITROGEN 60 mg/dL (7-20); CALCIUM 7.9 mg/dL (8.4-10.2); CARBON DIOXIDE 23 mmol/L (22-30); CHLORIDE 108 mmol/L (98-107); GLUCOSE 76 mg/dL (75-110); POTASSIUM 4.3 mmol/L (3.6-5.0)
[2020-12-01] MEDS: CALCIUM CARBONATE 500 MG TAB.CHEW PO SCH ×4 (08:41→21:31)
[2020-12-01] MEDS: NORMAL SALINE 1000 ML 1,000 ML IV PRN ×2 (08:44→21:31)
[2020-12-01] MEDS: CALCIUM CARBONATE 600 MG/VITAMIN D3 400 UNIT TABLET PO SCH (10:03)
[2020-12-01] MEDS: PANTOT AC/MIN OIL/PET HY-PHL OINT 50 GM TOP SCH ×2 (10:03→18:11)
[2020-12-01] MEDS: CALCITRIOL 0.25 MCG CAPSULE PO SCH (10:04)
[2020-12-01] MEDS: TAMSULOSIN HCL 0.4 MG CAP.SR.24H PO SCH (10:04)
[2020-12-01] MEDS ORDERED: HALOPERIDOL 2 MG TABLET PO ONE (11:30)
--- NOTE | 2020-12-01 20:14 | PDOC PROGRESS REPORT ---
Subjective Date:: 12/01/20 Subjective:: NAEO Reason For Visit: UREMIA,RENAL FAILURE Physical Exam Vital Signs: Temp Pulse Resp BP Pulse Ox 98.2 F 83 19 122/72 100 12/01/20 17:06 12/01/20 17:06 12/01/20 17:06 12/01/20 17:06 12/01/20 17:06 Intake & Output 11/30/20 12/01/20 12/02/20 06:59 06:59 06:59 Intake Total 1544 2467 1000 Output Total 975 2325 Balance 502 484 9549 Weight 54.7 kg 96.7 kg General appearance: PRESENT: no acute distress, cooperative Eye exam: ABSENT: scleral icterus Mouth exam: PRESENT: moist Throat exam: ABSENT: post pharyngeal erythema Neck exam: ABSENT: JVD Respiratory exam: PRESENT: clear to auscultation wilver Cardiovascular exam: PRESENT: RRR GI/Abdominal exam: PRESENT: normal bowel sounds, soft. ABSENT: tenderness Gentrourinary exam: PRESENT: indwelling catheter Extremities exam: ABSENT: pedal edema Neurological exam: PRESENT: altered, awake, oriented to person, oriented to place. ABSENT: oriented to time, oriented to situation Psychiatric exam: PRESENT: appropriate affect Skin exam: ABSENT: jaundice Results Laboratory Results: 11/29/20 05:00 12/01/20 05:39 12/01/20 05:39 Sodium 139.5 Potassium 4.3 Chloride 108 H Carbon Dioxide 23 Anion Gap 9 BUN 60 H Creatinine 10.40 H Est GFR ( Amer) 6 L Glucose 76 Calcium 7.9 L 11/27/20 04:50 Creatine Kinase 296 H Impressions: Chest X-Ray 11/24/20 16:04 IMPRESSION: NO ACUTE RADIOGRAPHIC FINDING IN THE CHEST. Abdomen/Pelvis CT 11/24/20 20:51 IMPRESSION: Satisfactory position with a Sneed catheter. Mild thickening of the urinary bladder, which may be due to cystitis. Mild bilateral hydronephrosis without evidence of urolithiasis or hydroureter. Diffuse sclerotic metastasis with no pathologic fracture. This may be secondary to rectal cancer, as there circumferential thickening with a left perirectal lymph node. Assessment and Plan - Diagnosis (1) Acute kidney injury (JAMESON) with acute tubular necrosis (ATN) Is this a current diagnosis for this admission?: Yes (2) Acute metabolic encephalopathy Is this a current diagnosis for this admission?: Yes (3) Anemia Qualifiers: Anemia type: unspecified type Qualified Code(s): D64.9 - Anemia, unspecified Is this a current diagnosis for this admission?: Yes (4) Bony metastasis Is this a current diagnosis for this admission?: Yes (5) Hematuria Qualifiers: Hematuria type: unspecified type Qualified Code(s): R31.9 - Hematuria, unspecified Is this a current diagnosis for this admission?: Yes (6) Hydronephrosis Qualifiers: Hydronephrosis type: other Qualified Code(s): N13.39 - Other hydronephrosis Is this a current diagnosis for this admission?: Yes (7) Hypertension Qualifiers: Hypertension type: essential hypertension Qualified Code(s): I10 - Essential (primary) hypertension Is this a current diagnosis for this admission?: Yes (8) Hypocalcemia Is this a current diagnosis for this admission?: Yes (9) Uremia Is this a current diagnosis for this admission?: Yes (10) Urinary retention Is this a current diagnosis for this admission?: Yes - Plan Summary Summary: Non-oliguric Acute kidney injury on likely CKD: due to combination of dehydration and chronic urinary obstruction. Now improving with IVF and Sneed catheter placement. He likely has underlying long-standing CKD given that he presented with elevated K/Phos/PTH and low Ca/hgb. - Nephrology consulted - continue IVF - last HD received on 11/29, possibly will get HD again on Friday - R groin HD catheter placed by general surgery Urinary retention c/b Hydronephrosis s/p Sneed catheter placement - outpatient urology f/u - he will need to be discharged with Sneed in place Bony metastases: concern for metastatic colon/rectal cancer based on CT showing thickened rectum - GI consulted 11/28, plan was for colonoscopy on 11/29 but he was not able to tolerate the prep and the procedure was cancelled until his mental/clinical status improves Anemia - due to malignancy vs hematuria vs long-standing CKD - iron studies - Epo - goal hgb >7 Uremic encephalopathy - anticipate improvement with above treatment - fall precautions - he does not have capacity to leave the hospital AMA Essential Hypertension: much improved - medications adjusted DVT ppx: heparin Q8H - Time Time Spent with patient: 25-34 minutes Anticipated Discharge Disposition: Home, Self Care Anticipated Discharge Timeframe: within 72 hours
--- NOTE | 2020-12-01 23:02 | PDOC PROGRESS REPORT ---
Subjective Date:: 12/01/20 Subjective:: Patient seen sitting down on his bed and seems very comfortable and communicating well. He is not a very good historian but he is at least oriented. He is being described as pleasantly confused at the moment. He is making good amount of urine with a Sneed catheter and and has made about 2325 mL of urine output for the past 24 hours. He denies any complaints vomiting shortness of breath. He is eating. Chart reviewed from admission. Reason For Visit: UREMIA,RENAL FAILURE Physical Exam Vital Signs: Temp Pulse Resp BP Pulse Ox 97.8 F 96 17 141/81 H 100 12/01/20 01:03 12/01/20 07:00 12/01/20 01:03 12/01/20 01:03 12/01/20 01:03 Intake & Output 11/30/20 12/01/20 12/02/20 06:59 06:59 06:59 Intake Total 1544 2467 1000 Output Total 975 2325 Balance 452 653 1156 Weight 54.7 kg 96.7 kg Exam: General appearance: PRESENT: no acute distress, cooperative, well-developed, well-nourished Head exam: PRESENT: atraumatic, normocephalic Eye exam: PRESENT: conjunctiva slightly pale, PERRLA. ABSENT: scleral icterus Neck exam: ABSENT: JVD Respiratory exam: PRESENT: Normal breath sounds. ABSENT: crackles, rales, rhonc hi, unlabored, wheezes Cardiovascular exam: PRESENT: Regular rate rhythm -+S1, +S2. ABSENT: diastolic murmur, systolic murmur GI/Abdominal exam: PRESENT: normal bowel sounds, soft. ABSENT: guarding, mass, tenderness Extremities exam: ABSENT: No edema Neurological exam: PRESENT: alert, awake, oriented to person, place and time. Skin exam: PRESENT: dry, warm, Cardiovascular exam: PRESENT: +S1, +S2. ABSENT: rubs GI/Abdominal exam: PRESENT: normal bowel sounds, soft. ABSENT: organomegaly, tenderness Results Laboratory Results: 11/29/20 05:00 12/01/20 05:39 12/01/20 05:39 Sodium 139.5 Potassium 4.3 Chloride 108 H Carbon Dioxide 23 Anion Gap 9 BUN 60 H Creatinine 10.40 H Est GFR ( Amer) 6 L Glucose 76 Calcium 7.9 L 11/27/20 04:50 Creatine Kinase 296 H Impressions: Chest X-Ray 11/24/20 16:04 IMPRESSION: NO ACUTE RADIOGRAPHIC FINDING IN THE CHEST. Abdomen/Pelvis CT 11/24/20 20:51 IMPRESSION: Satisfactory position with a Sneed catheter. Mild thickening of the urinary bladder, which may be due to cystitis. Mild bilateral hydronephrosis without evidence of urolithiasis or hydroureter. Diffuse sclerotic metastasis with no pathologic fracture. This may be secondary to rectal cancer, as there circumferential thickening with a left perirectal lymph node. Assessment & Plan - Diagnosis (1) Acute kidney injury superimposed on chronic kidney disease Is this a current diagnosis for this admission?: Yes Plan: Due to acute obstructive uropathy associated with bilateral hydronephrosis and possible superimposed prerenal azotemia. Unknown actual baseline creatinine. Initial admitting BUN of 252 with creatinine of 42. Currently the patient is nonoliguric with good urine output. BUN and creatinine continues to improve. He had 2 dialysis treatments this week. I am expecting spontaneous improvement of the patient's kidney function with relief of the patient's obstructive uropathy and hydration without dialysis. I will hold dialysis treatment today and continue to monitor kidney function. (2) Hydronephrosis Qualifiers: Hydronephrosis type: other Qualified Code(s): N13.39 - Other hydronephrosis Is this a current diagnosis for this admission?: Yes Plan: Bilateral hydronephrosis seen on CT scan on admission. Currently relieved with Sneed catheter. Patient has history of JAMESON requiring one dialysis treatment last summer when he was transferred to [facility]. Patient tells me today that he has seen the urologist in [place] but could not exactly remember when was the last time he saw the urologist. The patient is to be discharged with indwelling Sneed catheter and needs to set up follow-up with urologist upon discharge. (3) Acute metabolic encephalopathy Is this a current diagnosis for this admission?: Yes Plan: Most likely secondary to uremic encephalopathy. Expect to improve with improvement of uremia. (4) Chronic kidney disease-mineral and bone disorder Is this a current diagnosis for this admission?: Yes Plan: Initial phosphorus of 14 with PTH of 394. Currently on calcitriol and calcium carbonate. Repeat levels. (5) Anemia Qualifiers: Anemia type: unspecified type Qualified Code(s): D64.9 - Anemia, unspecified Is this a current diagnosis for this admission?: Yes Plan: Likely due to anemia of chronic kidney disease. (6) Hypertension Qualifiers: Hypertension type: essential hypertension Qualified Code(s): I10 - Essential (primary) hypertension Is this a current diagnosis for this admission?: Yes Plan: Fairly controlled. (7) Hypocalcemia Is this a current diagnosis for this admission?: Yes Plan: On calcium carbonate. (8) Bony metastasis Is this a current diagnosis for this admission?: Yes Plan: Being worked up for possible rectal cancer. Patient evaluated by GI and planned for colonoscopy but unable to tolerate the bowel prep. (9) Uremia Is this a current diagnosis for this admission?: Yes Plan: Improved. - Notes Notes: Discussed with Dr. Melendez.
[2020-12-02] MEDS: HEPARIN SOD (PORCINE) 5,000 UNIT/ML 1 ML VIAL SUBCUT SCH ×3 (06:57→23:13)
[2020-12-02] MEDS: PANTOPRAZOLE SODIUM 20 MG TABLET.DR PO SCH (06:57)
[2020-12-02 07:01] LABS: ANION GAP 8 (5-19); BLOOD UREA NITROGEN 59 mg/dL (7-20); CALCIUM 7.7 mg/dL (8.4-10.2); CARBON DIOXIDE 20 mmol/L (22-30); CHLORIDE 110 mmol/L (98-107); GLUCOSE 119 mg/dL (75-110); PHOSPHORUS 3.5 mg/dL (2.5-4.5); POTASSIUM 4.8 mmol/L (3.6-5.0)
[2020-12-02] MEDS: NORMAL SALINE 1000 ML 1,000 ML IV PRN ×2 (07:46→18:56)
[2020-12-02] MEDS: CALCIUM CARBONATE 500 MG TAB.CHEW PO SCH ×4 (07:46→23:11)
[2020-12-02] MEDS: PANTOT AC/MIN OIL/PET HY-PHL OINT 50 GM TOP SCH ×2 (09:07→17:07)
[2020-12-02] MEDS: CALCITRIOL 0.25 MCG CAPSULE PO SCH (09:07)
[2020-12-02] MEDS: CALCIUM CARBONATE 600 MG/VITAMIN D3 400 UNIT TABLET PO SCH (09:07)
[2020-12-02] MEDS: TAMSULOSIN HCL 0.4 MG CAP.SR.24H PO SCH (09:07)
--- NOTE | 2020-12-02 15:51 | PDOC PROGRESS REPORT ---
Subjective Date:: 12/02/20 Subjective:: As per attending physician's note LINDA COOPER is a 59 year old male with a history of acute kidney failure in April as well as hypertension. In April he presented with similar symptoms with a BUN of 49 and a creatinine of 6.17. He was able to transfer to [facility] and underwent a single dialysis treatment. It was felt that he had obstructive uropathy at that time. At the time of this admission a Sneed catheter was placed and 2.25 L of urine was drained. Sneed catheter remains in place. Because of the high uremia the patient does exhibit mild confusion but eventually is able to answer questions correctly. He could not remember the name of his antihypertensive medication. He did remember his primary care physician is Dr. Hylton in [place]. He knew he was in [facility] in [place]. He knew the month and the fact that his birthday is next week. When he presented initially yesterday his hemoglobin was 7.2 but dropped to 6.4 with hydration. He was transfused 2 units of packed cells. His vitals have been relatively stable since then. The emergency department physician did contact multiple hospitals for transfer as we do not have nephrology on the weekends. The patient is making urine. The plan will be to admit the patient and monitor closely. We will administer IV fluids. His skin is extremely dry and he exhibits skin tenting. His hemoglobin today was up to 8.5 and we will monitor closely. His calcium did drop to 7.0 and 1 g of calcium has been ordered. His albumin is normal at 3.9. Electrolytes are unremarkable. Serology was performed and the patient tested negative for Covid virus. Since several facilities have refused transfer I will admit him to the hospitalist service. IV fluids with strict intake and output monitoring. If he remains stable we will have nephrology evaluate him on Friday. If he does not remain stable then we will need to attempt to transfer again. 12/02/2020. No acute overnight. Patient comfortably sitting in no apparent distress, denies any fever, chills, nausea, vomiting. Patient nonoliguric, with a balance of 480. Currently on IV fluids. Reason For Visit: UREMIA,RENAL FAILURE Physical Exam Vital Signs: Temp Pulse Resp BP Pulse Ox 98.3 F 79 17 135/81 H 100 12/02/20 12:25 12/02/20 14:00 12/02/20 12:25 12/02/20 12:25 12/02/20 12:25 Intake & Output 12/01/20 12/02/20 12/03/20 06:59 06:59 06:59 Intake Total 2467 1999 1480 Output Total 2325 1950 1000 Balance 142 50 480 Weight 96.7 kg 96.7 kg General appearance: PRESENT: no acute distress, well-developed, well-nourished Head exam: PRESENT: atraumatic, normocephalic Neck exam: ABSENT: carotid bruit, JVD, lymphadenopathy, thyromegaly Respiratory exam: PRESENT: clear to auscultation wilver. ABSENT: rales, rhonchi, wheezes Cardiovascular exam: PRESENT: RRR. ABSENT: diastolic murmur, rubs, systolic murmur GI/Abdominal exam: PRESENT: normal bowel sounds, soft. ABSENT: distended, guarding, mass, organolmegaly, rebound, tenderness Extremities exam: PRESENT: full ROM. ABSENT: calf tenderness, clubbing, pedal edema Neurological exam: PRESENT: alert, awake, oriented to person, oriented to place, CN II-XII grossly intact. ABSENT: motor sensory deficit Results Laboratory Results: 11/29/20 05:00 12/02/20 06:33 12/02/20 12/02/20 06:33 06:33 Sodium 137.7 Potassium 4.8 Chloride 110 H Carbon Dioxide 20 L Anion Gap 8 BUN 59 H Creatinine 9.82 H Est GFR ( Amer) 7 L Glucose 119 H Calcium 7.7 L Phosphorus 3.5 PTH Intact 203.9 H 11/27/20 04:50 Creatine Kinase 296 H Impressions: Chest X-Ray 11/24/20 16:04 IMPRESSION: NO ACUTE RADIOGRAPHIC FINDING IN THE CHEST. Abdomen/Pelvis CT 11/24/20 20:51 IMPRESSION: Satisfactory position with a Sneed catheter. Mild thickening of the urinary bladder, which may be due to cystitis. Mild bilateral hydronephrosis without evidence of urolithiasis or hydroureter. Diffuse sclerotic metastasis with no pathologic fracture. This may be secondary to rectal cancer, as there circumferential thickening with a left perirectal lymph node. Assessment and Plan - Diagnosis (1) Acute kidney injury (JAMESON) with acute tubular necrosis (ATN) Is this a current diagnosis for this admission?: Yes Plan: Due to combination of dehydration and chronic urinary obstruction. Now improving with IVF and Sneed catheter placement. He likely has underlying long-standing CKD given that he presented with elevated K/Phos/PTH and low Ca/hgb. Nephrology on board. Recommendations noted. Continue IV fluids, strict in and out, monitor vitals status. Last HD received on 11/29, possibly will get HD again on Friday R groin HD catheter placed by general surgery (2) Acute metabolic encephalopathy Is this a current diagnosis for this admission?: Yes Plan: Likely due to uremic symptoms because of acute renal failure. Alert and oriented x3 however does not appear to have a good insight into his underlying medical condition. Unknown baseline. Continue fall, seizure and aspiration precautions. (3) Anemia Qualifiers: Anemia type: unspecified type Qualified Code(s): D64.9 - Anemia, unspecified Is this a current diagnosis for this admission?: Yes Plan: Multifactorial. Likely due to malignancy vs hematuria vs long-standing CKD Iron studies suggestive of anemia of chronic disease. Status post a Procrit administration by nephrology. Monitor H&H, supportive transfusion. (4) Bony metastasis Is this a current diagnosis for this admission?: Yes Plan: Concern for metastatic colon/rectal cancer based on CT showing thickened rectum GI consulted 11/28, plan was for colonoscopy on 11/29 but he was not able to tolerate the prep and the procedure was cancelled until his mental/clinical status improves (5) Hydronephrosis Qualifiers: Hydronephrosis type: other Qualified Code(s): N13.39 - Other hydronephrosis Is this a current diagnosis for this admission?: Yes (6) Hypertension Qualifiers: Hypertension type: essential hypertension Qualified Code(s): I10 - Essential (primary) hypertension Is this a current diagnosis for this admission?: Yes Plan: Euvolemic. Normotensive. Monitor vitals. (7) Hypocalcemia Is this a current diagnosis for this admission?: Yes Plan: Improving. Continue supplemental calcium. BMP tomorrow. (8) Urinary retention Is this a current diagnosis for this admission?: Yes Plan: Urinary retention c/b Hydronephrosis s/p Sneed catheter placement outpatient urology f/u he will need to be discharged with Sneed in place - Plan Summary Summary: Non-oliguric Acute kidney injury on likely CKD: due to combination of dehydration and chronic urinary obstruction. Now improving with IVF and Sneed catheter placement. He likely has underlying long-standing CKD given that he presented with elevated K/Phos/PTH and low Ca/hgb. - Nephrology consulted - continue IVF - last HD received on 11/29, possibly will get HD again on Friday - R groin HD catheter placed by general surgery Urinary retention c/b Hydronephrosis s/p Sneed catheter placement - outpatient urology f/u - he will need to be discharged with Sneed in place Bony metastases: concern for metastatic colon/rectal cancer based on CT showing thickened rectum - GI consulted 11/28, plan was for colonoscopy on 11/29 but he was not able to tolerate the prep and the procedure was cancelled until his mental/clinical status improves Anemia - due to malignancy vs hematuria vs long-standing CKD - iron studies - Epo - goal hgb >7 Uremic encephalopathy - anticipate improvement with above treatment - fall precautions - he does not have capacity to leave the hospital AMA Essential Hypertension: much improved - medications adjusted DVT ppx: heparin Q8H - Time Time Spent with patient: 35 or more minutes Anticipated Discharge Disposition: Home with Home Health Anticipated Discharge Timeframe: within 48 hours
[2020-12-03 05:15] LABS: HEMOGLOBIN 9.1 g/dL (13.5-17.0); MEAN CORPUSCULAR HEMOGLOBIN 29.4 pg (27.0-33.4); MEAN CORPUSCULAR HGB CONC 33.6 g/dL (32.0-36.0); MEAN CORPUSCULAR VOLUME 88 fl (80-97); PLATELET COUNT 264 10^3/uL (150-450); RED BLOOD COUNT 3.08 10^6/uL (4.35-5.55); RED CELL DISTRIBUTION WIDTH 16.1 % (11.5-14.0); WHITE BLOOD COUNT 5.2 10^3/uL (4.0-10.5)
[2020-12-03 05:42] LABS: ALBUMIN 2.8 g/dL (3.5-5.0); ALKALINE PHOSPHATASE 53 U/L (38-126); ANION GAP 7 (5-19); ASPARTATE AMINO TRANSFERASE 19 U/L (17-59); BILIRUBIN,DIRECT 0.2 mg/dL (0.0-0.4); BILIRUBIN,TOTAL 0.2 mg/dL (0.2-1.3); BLOOD UREA NITROGEN 62 mg/dL (7-20); CALCIUM 7.9 mg/dL (8.4-10.2); CARBON DIOXIDE 20 mmol/L (22-30); CHLORIDE 110 mmol/L (98-107); GLUCOSE 75 mg/dL (75-110); TOTAL PROTEIN 5.3 g/dL (6.3-8.2)
[2020-12-03 06:11] LABS: POTASSIUM 5.8 mmol/L (3.6-5.0)
[2020-12-03] MEDS: NORMAL SALINE 1000 ML 1,000 ML IV PRN (06:49)
[2020-12-03] MEDS: PANTOPRAZOLE SODIUM 20 MG TABLET.DR PO SCH (06:49)
[2020-12-03] MEDS: HEPARIN SOD (PORCINE) 5,000 UNIT/ML 1 ML VIAL SUBCUT SCH ×3 (08:06→21:21)
[2020-12-03] MEDS: CALCIUM CARBONATE 500 MG TAB.CHEW PO SCH ×4 (08:45→21:22)
[2020-12-03] MEDS ORDERED: SODIUM POLYSTYRENE SULFONATE 15 GM/60 ML PO ONE (09:00)
[2020-12-03] MEDS: CALCITRIOL 0.25 MCG CAPSULE PO SCH (10:38)
[2020-12-03] MEDS: CALCIUM CARBONATE 600 MG/VITAMIN D3 400 UNIT TABLET PO SCH (10:38)
[2020-12-03] MEDS: PANTOT AC/MIN OIL/PET HY-PHL OINT 50 GM TOP SCH ×2 (10:39→18:25)
[2020-12-03] MEDS: TAMSULOSIN HCL 0.4 MG CAP.SR.24H PO SCH (10:39)
--- NOTE | 2020-12-03 13:55 | PDOC PROGRESS REPORT ---
Subjective Date:: 12/03/20 Subjective:: As per attending physician's note LINDA COOPER is a 59 year old male with a history of acute kidney failure in April as well as hypertension. In April he presented with similar symptoms with a BUN of 49 and a creatinine of 6.17. He was able to transfer to [facility] and underwent a single dialysis treatment. It was felt that he had obstructive uropathy at that time. At the time of this admission a Sneed catheter was placed and 2.25 L of urine was drained. Sneed catheter remains in place. Because of the high uremia the patient does exhibit mild confusion but eventually is able to answer questions correctly. He could not remember the name of his antihypertensive medication. He did remember his primary care physician is Dr. Hylton in [place]. He knew he was in [facility] in [place]. He knew the month and the fact that his birthday is next week. When he presented initially yesterday his hemoglobin was 7.2 but dropped to 6.4 with hydration. He was transfused 2 units of packed cells. His vitals have been relatively stable since then. The emergency department physician did contact multiple hospitals for transfer as we do not have nephrology on the weekends. The patient is making urine. The plan will be to admit the patient and monitor closely. We will administer IV fluids. His skin is extremely dry and he exhibits skin tenting. His hemoglobin today was up to 8.5 and we will monitor closely. His calcium did drop to 7.0 and 1 g of calcium has been ordered. His albumin is normal at 3.9. Electrolytes are unremarkable. Serology was performed and the patient tested negative for Covid virus. Since several facilities have refused transfer I will admit him to the hospitalist service. IV fluids with strict intake and output monitoring. If he remains stable we will have nephrology evaluate him on Friday. If he does not remain stable then we will need to attempt to transfer again. 12/02/2020. No acute overnight. Patient comfortably sitting in no apparent distress, denies any fever, chills, nausea, vomiting. Patient nonoliguric, with a balance of 480. Currently on IV fluids. 12/03/2020. No acute events overnight. Patient comfortably sitting in bed no apparent distress, pleasant and cooperative with physical examination, alert and oriented, having normal bowel and bladder movement, appropriate urine output. Reason For Visit: UREMIA,RENAL FAILURE Physical Exam Vital Signs: Temp Pulse Resp BP Pulse Ox 98.0 F 82 18 153/83 H 100 12/03/20 11:24 12/03/20 11:24 12/03/20 11:24 12/03/20 11:24 12/03/20 11:24 Intake & Output 12/02/20 12/03/20 12/04/20 06:59 06:59 06:59 Intake Total 1999 4085 596 Output Total 1949 3425 550 Balance 50 660 46 Weight 96.7 kg 96 kg General appearance: PRESENT: no acute distress, cooperative, well-developed, well-nourished Head exam: PRESENT: atraumatic, normocephalic Respiratory exam: PRESENT: clear to auscultation wilver. ABSENT: rales, rhonchi, wheezes Cardiovascular exam: PRESENT: RRR. ABSENT: diastolic murmur, rubs, systolic murmur GI/Abdominal exam: PRESENT: normal bowel sounds, soft. ABSENT: distended, guarding, mass, organolmegaly, rebound, tenderness Gentrourinary exam: PRESENT: indwelling catheter Neurological exam: PRESENT: alert, awake, oriented to person, oriented to place, oriented to time, oriented to situation, CN II-XII grossly intact. ABSENT: motor sensory deficit Skin exam: PRESENT: dry, intact, warm. ABSENT: cyanosis, rash Results Laboratory Results: 12/03/20 04:34 12/03/20 04:34 12/03/20 12/03/20 04:34 04:34 WBC 5.2 RBC 3.08 L Hgb 9.1 L Hct 27.0 L MCV 88 MCH 29.4 MCHC 33.6 RDW 16.1 H Plt Count 264 Sodium 137.4 Potassium 5.8 H D Chloride 110 H Carbon Dioxide 20 L Anion Gap 7 BUN 62 H Creatinine 9.49 H Est GFR ( Amer) 7 L Glucose 75 Calcium 7.9 L Total Bilirubin 0.2 AST 19 Alkaline Phosphatase 53 Total Protein 5.3 L Albumin 2.8 L 11/27/20 04:50 Creatine Kinase 296 H Impressions: Chest X-Ray 11/24/20 16:04 IMPRESSION: NO ACUTE RADIOGRAPHIC FINDING IN THE CHEST. Abdomen/Pelvis CT 11/24/20 20:51 IMPRESSION: Satisfactory position with a Sneed catheter. Mild thickening of the urinary bladder, which may be due to cystitis. Mild bilateral hydronephrosis without evidence of urolithiasis or hydroureter. Diffuse sclerotic metastasis with no pathologic fracture. This may be secondary to rectal cancer, as there circumferential thickening with a left perirectal lymph node. Assessment and Plan - Diagnosis (1) Acute kidney injury (JAMESON) with acute tubular necrosis (ATN) Is this a current diagnosis for this admission?: Yes Plan: No significant change compared to yesterday. Nonoliguric. Developing mild metabolic acidosis and hyperkalemia. Due to combination of dehydration and chronic urinary obstruction complicated by underlying long-standing CKD given that he presented with elevated K/Phos/PTH and low Ca/hgb. Nephrology on board. Recommendations noted. Continue IV fluids, strict in and out, monitor vitals status. Last HD received on 11/29, possibly will get HD again on Friday R groin HD catheter placed by general surgery (2) Acute metabolic encephalopathy Is this a current diagnosis for this admission?: Yes Plan: Likely due to uremic symptoms because of acute renal failure. Alert and oriented x3 however does not appear to have a good insight into his underlying medical condition. Unknown baseline. Continue fall, seizure and aspiration precautions. (3) Anemia Qualifiers: Anemia type: unspecified type Qualified Code(s): D64.9 - Anemia, unspecified Is this a current diagnosis for this admission?: Yes Plan: Multifactorial. Likely due to malignancy, hematuria, long-standing CKD. Hemoccult negative. Iron studies suggestive of anemia of chronic disease. Status post 3 PRBC transfusion on admission. H&H stable and trending up. Status post a Procrit administration by nephrology. Monitor H&H, supportive transfusion. (4) Bony metastasis Is this a current diagnosis for this admission?: Yes Plan: Concern for metastatic colon/rectal cancer based on CT showing thickened rectum GI consulted 11/28, plan was for colonoscopy on 11/29 but he was not able to tolerate the prep and the procedure was cancelled until his mental/clinical status improves (5) Hydronephrosis Qualifiers: Hydronephrosis type: other Qualified Code(s): N13.39 - Other hydronephrosis Is this a current diagnosis for this admission?: Yes Plan: CT abdomen positive for mild bilateral hydronephrosis without evidence of urolithiasis or hydroureter. Outpatient urology follow-up. Unfortunately no urology consult available at [facility] at this point. (6) Hypertension Qualifiers: Hypertension type: essential hypertension Qualified Code(s): I10 - Essential (primary) hypertension Is this a current diagnosis for this admission?: Yes Plan: Euvolemic. Normotensive. Monitor vitals. (7) Hypocalcemia Is this a current diagnosis for this admission?: Yes Plan: Improving. Continue supplemental calcium. BMP tomorrow. (8) Urinary retention Is this a current diagnosis for this admission?: Yes Plan: Urinary retention c/b Hydronephrosis s/p Sneed catheter placement Outpatient urology f/u He will need to be discharged with Sneed in place - Plan Summary Summary: Non-oliguric Acute kidney injury on likely CKD: due to combination of dehydration and chronic urinary obstruction. Now improving with IVF and Sneed catheter placement. He likely has underlying long-standing CKD given that he presented with elevated K/Phos/PTH and low Ca/hgb. - Nephrology consulted - continue IVF - last HD received on 11/29, possibly will get HD again on Friday - R groin HD catheter placed by general surgery Urinary retention c/b Hydronephrosis s/p Sneed catheter placement - outpatient urology f/u - he will need to be discharged with Sneed in place Bony metastases: concern for metastatic colon/rectal cancer based on CT showing thickened rectum - GI consulted 11/28, plan was for colonoscopy on 11/29 but he was not able to tolerate the prep and the procedure was cancelled until his mental/clinical status improves Anemia - due to malignancy vs hematuria vs long-standing CKD - iron studies - Epo - goal hgb >7 Uremic encephalopathy - anticipate improvement with above treatment - fall precautions - he does not have capacity to leave the hospital AMA Essential Hypertension: much improved - medications adjusted DVT ppx: heparin Q8H - Time Time Spent with patient: 35 or more minutes Anticipated Discharge Disposition: Home, Self Care Anticipated Discharge Timeframe: within 48 hours
[2020-12-04 05:25] LABS: HEMATOCRIT 27.1 % (37.9-51.0); HEMOGLOBIN 9.1 g/dL (13.5-17.0); MEAN CORPUSCULAR HEMOGLOBIN 29.3 pg (27.0-33.4); MEAN CORPUSCULAR HGB CONC 33.8 g/dL (32.0-36.0); MEAN CORPUSCULAR VOLUME 87 fl (80-97); PLATELET COUNT 259 10^3/uL (150-450); RED BLOOD COUNT 3.12 10^6/uL (4.35-5.55); WHITE BLOOD COUNT 5.3 10^3/uL (4.0-10.5)
[2020-12-04] MEDS: PANTOPRAZOLE SODIUM 20 MG TABLET.DR PO SCH (05:34)
[2020-12-04] MEDS: HEPARIN SOD (PORCINE) 5,000 UNIT/ML 1 ML VIAL SUBCUT SCH ×3 (05:35→21:28)
[2020-12-04 05:51] LABS: ALBUMIN 2.7 g/dL (3.5-5.0); ALKALINE PHOSPHATASE 62 U/L (38-126); ANION GAP 7 (5-19); ASPARTATE AMINO TRANSFERASE 28 U/L (17-59); BILIRUBIN,DIRECT 0.2 mg/dL (0.0-0.4); BILIRUBIN,TOTAL 0.2 mg/dL (0.2-1.3); BLOOD UREA NITROGEN 65 mg/dL (7-20); CALCIUM 7.8 mg/dL (8.4-10.2); CARBON DIOXIDE 20 mmol/L (22-30); CHLORIDE 108 mmol/L (98-107); GLUCOSE 89 mg/dL (75-110); POTASSIUM 5.5 mmol/L (3.6-5.0); TOTAL PROTEIN 5.2 g/dL (6.3-8.2)
[2020-12-04] MEDS ORDERED: SODIUM POLYSTYRENE SULFONATE 15 GM/60 ML PO ONE ×2 (07:15→11:30)
[2020-12-04] MEDS ORDERED: CALCIUM GLUCONATE 1000 MG/10 ML INJ IV ONE (07:15)
[2020-12-04] MEDS: CALCIUM CARBONATE 500 MG TAB.CHEW PO SCH ×4 (08:15→21:28)
[2020-12-04] MEDS ORDERED: EPOETIN ALFA-EPBX 10,000 UNIT in SYRINGE, DISPOSABLE, 1 EACH IV PRN (11:00)
[2020-12-04] MEDS: CALCITRIOL 0.25 MCG CAPSULE PO SCH (11:06)
[2020-12-04] MEDS: CALCIUM CARBONATE 600 MG/VITAMIN D3 400 UNIT TABLET PO SCH (11:06)
[2020-12-04] MEDS: TAMSULOSIN HCL 0.4 MG CAP.SR.24H PO SCH (11:06)
[2020-12-04] MEDS: PANTOT AC/MIN OIL/PET HY-PHL OINT 50 GM TOP SCH ×2 (11:07→18:08)
[2020-12-04] MEDS ORDERED: CALCIUM GLUCONATE 1 GM/NS 50 ML RTU IV ONE (11:30)
--- NOTE | 2020-12-04 11:49 | PDOC PROGRESS REPORT ---
Subjective Date:: 12/04/20 Subjective:: As per attending physician's note LINDA COOPER is a 59 year old male with a history of acute kidney failure in April as well as hypertension. In April he presented with similar symptoms with a BUN of 49 and a creatinine of 6.17. He was able to transfer to [facility] and underwent a single dialysis treatment. It was felt that he had obstructive uropathy at that time. At the time of this admission a Sneed catheter was placed and 2.25 L of urine was drained. Sneed catheter remains in place. Because of the high uremia the patient does exhibit mild confusion but eventually is able to answer questions correctly. He could not remember the name of his antihypertensive medication. He did remember his primary care physician is Dr. Hylton in [place]. He knew he was in [facility] in [place]. He knew the month and the fact that his birthday is next week. When he presented initially yesterday his hemoglobin was 7.2 but dropped to 6.4 with hydration. He was transfused 2 units of packed cells. His vitals have been relatively stable since then. The emergency department physician did contact multiple hospitals for transfer as we do not have nephrology on the weekends. The patient is making urine. The plan will be to admit the patient and monitor closely. We will administer IV fluids. His skin is extremely dry and he exhibits skin tenting. His hemoglobin today was up to 8.5 and we will monitor closely. His calcium did drop to 7.0 and 1 g of calcium has been ordered. His albumin is normal at 3.9. Electrolytes are unremarkable. Serology was performed and the patient tested negative for Covid virus. Since several facilities have refused transfer I will admit him to the hospitalist service. IV fluids with strict intake and output monitoring. If he remains stable we will have nephrology evaluate him on Friday. If he does not remain stable then we will need to attempt to transfer again. 12/02/2020. No acute overnight. Patient comfortably sitting in no apparent distress, denies any fever, chills, nausea, vomiting. Patient nonoliguric, with a balance of 480. Currently on IV fluids. 12/03/2020. No acute events overnight. Patient comfortably sitting in bed no apparent distress, pleasant and cooperative with physical examination, alert and oriented, having normal bowel and bladder movement, appropriate urine output. 12/04/2020. No acute events overnight. Patient comfortably sitting mid-upper distress, pleasant and cooperative with physical examination, alert and oriented to activity however does not seem to have a clear understanding of her underlying medical condition, as per my conversation with Dr. Castle patient will need to have scheduled dialysis after discharge, patient is stating that he has been here for 10 days and he wants to go home only, will contact his and and update her about her about the need for continued week hemodialysis upon discharge. Patient is scheduled to have hemodialysis today and permacath placed today. Reason For Visit: UREMIA,RENAL FAILURE Physical Exam Vital Signs: Temp Pulse Resp BP Pulse Ox 98.2 F 80 19 120/76 100 12/04/20 08:23 12/04/20 08:23 12/04/20 08:23 12/04/20 08:23 12/04/20 08:23 Intake & Output 12/03/20 12/04/20 12/05/20 06:59 06:59 06:59 Intake Total 4085 1516 Output Total 3425 2575 Balance 660 -1059 Weight 96 kg 96 kg General appearance: PRESENT: no acute distress, well-developed, well-nourished Head exam: PRESENT: atraumatic, normocephalic Neck exam: ABSENT: carotid bruit, JVD, lymphadenopathy, thyromegaly Respiratory exam: PRESENT: clear to auscultation wilver. ABSENT: rales, rhonchi, wheezes GI/Abdominal exam: PRESENT: normal bowel sounds, soft. ABSENT: distended, guarding, mass, organolmegaly, rebound, tenderness Neurological exam: PRESENT: alert, awake, oriented to person, oriented to place, CN II-XII grossly intact. ABSENT: motor sensory deficit Results Laboratory Results: 12/04/20 04:25 12/04/20 04:25 12/04/20 12/04/20 04:25 04:25 WBC 5.3 RBC 3.12 L Hgb 9.1 L Hct 27.1 L MCV 87 MCH 29.3 MCHC 33.8 RDW 16.0 H Plt Count 259 Sodium 135.3 L Potassium 5.5 H Chloride 108 H Carbon Dioxide 20 L Anion Gap 7 BUN 65 H Creatinine 9.46 H Est GFR ( Amer) 7 L Glucose 89 Calcium 7.8 L Magnesium 1.8 Total Bilirubin 0.2 AST 28 Alkaline Phosphatase 62 Total Protein 5.2 L Albumin 2.7 L 11/27/20 04:50 Creatine Kinase 296 H Impressions: Chest X-Ray 11/24/20 16:04 IMPRESSION: NO ACUTE RADIOGRAPHIC FINDING IN THE CHEST. Abdomen/Pelvis CT 11/24/20 20:51 IMPRESSION: Satisfactory position with a Sneed catheter. Mild thickening of the urinary bladder, which may be due to cystitis. Mild bilateral hydronephrosis without evidence of urolithiasis or hydroureter. Diffuse sclerotic metastasis with no pathologic fracture. This may be secondary to rectal cancer, as there circumferential thickening with a left perirectal lymph node. Assessment and Plan - Diagnosis (1) Acute kidney injury (JAMESON) with acute tubular necrosis (ATN) Is this a current diagnosis for this admission?: Yes Plan: No significant change compared to yesterday. Nonoliguric. Developing mild m etabolic acidosis and hyperkalemia. Scheduled for hemodialysis. Due to combination of dehydration and chronic urinary obstruction complicated by underlying long-standing CKD given that he presented with elevated K/Phos/PTH and low Ca/hgb. Nephrology on board. Recommendations noted. As per my conversation Dr. Sarmiento nephrology patient will need to have scheduled hemodialysis upon discharge. Case management has been consulted. Continue IV fluids, strict in and out, monitor vitals status. Last HD received on 11/29, possibly will get HD again on Friday R groin HD catheter placed by general surgery (2) Acute metabolic encephalopathy Is this a current diagnosis for this admission?: Yes Plan: Likely due to uremic symptoms because of acute renal failure. Alert and oriented x3 however does not appear to have a good insight into his underlying medical condition. Unknown baseline. Continue fall, seizure and aspiration precautions. (3) Anemia Qualifiers: Anemia type: unspecified type Qualified Code(s): D64.9 - Anemia, unspecified Is this a current diagnosis for this admission?: Yes Plan: Multifactorial. Likely due to malignancy, hematuria, long-standing CKD. Hemoccult negative. Iron studies suggestive of anemia of chronic disease. Status post 3 PRBC transfusion on admission. H&H stable and trending up. Status post a Procrit administration by nephrology. Monitor H&H, supportive transfusion. (4) Bony metastasis Is this a current diagnosis for this admission?: Yes Plan: Concern for metastatic colon/rectal cancer based on CT showing thickened rectum GI consulted 11/28, plan was for colonoscopy on 11/29 but he was not able to tolerate the prep and the procedure was cancelled until his mental/clinical st atus improves (5) Hydronephrosis Qualifiers: Hydronephrosis type: other Qualified Code(s): N13.39 - Other hydronephrosis Is this a current diagnosis for this admission?: Yes Plan: CT abdomen positive for mild bilateral hydronephrosis without evidence of urolithiasis or hydroureter. Outpatient urology follow-up. Unfortunately no urology consult available at [facility] at this point. (6) Hypertension Qualifiers: Hypertension type: essential hypertension Qualified Code(s): I10 - Essential (primary) hypertension Is this a current diagnosis for this admission?: Yes Plan: Euvolemic. Normotensive. Monitor vitals. (7) Hypocalcemia Is this a current diagnosis for this admission?: Yes Plan: Improving. Continue supplemental calcium. BMP tomorrow. (8) Urinary retention Is this a current diagnosis for this admission?: Yes Plan: Urinary retention c/b Hydronephrosis s/p Sneed catheter placement Outpatient urology f/u He will need to be discharged with Sneed in place - Plan Summary Summary: Non-oliguric Acute kidney injury on likely CKD: due to combination of dehydr ation and chronic urinary obstruction. Now improving with IVF and Sneed catheter placement. He likely has underlying long-standing CKD given that he presented with elevated K/Phos/PTH and low Ca/hgb. - Nephrology consulted - continue IVF - last HD received on 11/29, possibly will get HD again on Friday - R groin HD catheter placed by general surgery Urinary retention c/b Hydronephrosis s/p Sneed catheter placement - outpatient urology f/u - he will need to be discharged with Sneed in place Bony metastases: concern for metastatic colon/rectal cancer based on CT showing thickened rectum - GI consulted 11/28, plan was for colonoscopy on 11/29 but he was not able to tolerate the prep and the procedure was cancelled until his mental/clinical status improves Anemia - due to malignancy vs hematuria vs long-standing CKD - iron studies - Epo - goal hgb >7 Uremic encephalopathy - anticipate improvement with above treatment - fall precautions - he does not have capacity to leave the hospital AMA Essential Hypertension: much improved - medications adjusted DVT ppx: heparin Q8H - Time Time Spent with patient: 35 or more minutes Anticipated Discharge Disposition: Home with Home Health Anticipated Discharge Timeframe: within 48 hours
[2020-12-04 13:37] LABS: APPEARANCE,URINE CLEAR; BILIRUBIN,URINE NEGATIVE (NEGATIVE); COLOR,URINE COLORLESS; GLUCOSE, URINE 50 mg/dL (NEGATIVE); KETONES,URINE NEGATIVE (NEGATIVE); LEUKOCYTE ESTERASE,URINE SMALL (NEGATIVE); NITRITE,URINE NEGATIVE (NEGATIVE); PROTEIN,URINE NEGATIVE (NEGATIVE); URINE SPECIFIC GRAVITY 1.008; UROBILINOGEN,URINE NEGATIVE mg/dL (<2.0)
[2020-12-04] MEDS ORDERED: GLUCAGON,HUMAN RECOMB 1 MG INJ SUBCUT PRN (13:58)
[2020-12-04] MEDS ORDERED: DEXTROSE 40% GEL 15 GM TUBE PO PRN ×2 (13:58)
[2020-12-04] MEDS ORDERED: DEXTROSE 50%-WATER 25 GM/50 ML DISP.SYRIN IV PRN ×2 (13:58)
--- NOTE | 2020-12-04 17:18 | PDOC PROGRESS REPORT ---
Subjective Date:: 12/04/20 Subjective:: When I saw the patient is morning he said he is doing fine. He denies any compl aints including shortness of breath. He is eating good. He is also making good amount of urine with urine output of 2575 mL. However he is starting to have hyperkalemia and his kidney function has not really significantly improved. I then recommended patient to undergo hemodialysis again. 4:45 PM. I am seeing the patient during dialysis treatment this afternoon. He is tolerating dialysis. I explained to him that moving forward, he is probably going to need dialysis treatment as an outpatient upon discharge and this will be indefinitely. He seems to be understanding what I am saying but he continues to ask the same questions over and over again. I told him is going to need 3 times a week outpatient hemodialysis upon discharge unless his kidney function recovers. Reason For Visit: UREMIA,RENAL FAILURE Physical Exam Vital Signs: Temp Pulse Resp BP Pulse Ox 98.2 F 80 19 120/76 100 12/04/20 08:23 12/04/20 08:23 12/04/20 08:23 12/04/20 08:23 12/04/20 08:23 Intake & Output 12/03/20 12/04/20 12/05/20 06:59 06:59 06:59 Intake Total 4085 1516 Output Total 3425 2575 Balance 660 -1059 Weight 96 kg 96 kg Vitals during dialysis: Blood pressure 151/88, heart rate of 89, blood flow rate of 250 mL/min and dialysate flow rate of 600 mL/min. Exam: General appearance: PRESENT: no acute distress, cooperative, well-developed, well-nourished Head exam: PRESENT: atraumatic, normocephalic Eye exam: PRESENT: conjunctiva mildly pale, PERRLA. ABSENT: scleral icterus Neck exam: ABSENT: JVD Respiratory exam: PRESENT: Normal breath sounds. ABSENT: crackles, rales, rhonchi, unlabored, wheezes Cardiovascular exam: PRESENT: Regular rate rhythm -+S1, +S2. ABSENT: diastolic murmur, systolic murmur GI/Abdominal exam: PRESENT: normal bowel sounds, soft. ABSENT: guarding, mass, tenderness Extremities exam: ABSENT: No edema Neurological exam: PRESENT: alert, awake, oriented to person, place and time. Skin exam: PRESENT: dry, warm, Cardiovascular exam: PRESENT: +S1, +S2. ABSENT: rubs GI/Abdominal exam: PRESENT: normal bowel sounds, soft. ABSENT: organomegaly, tenderness Results Laboratory Results: 12/04/20 04:25 12/04/20 04:25 12/04/20 12/04/20 04:25 04:25 WBC 5.3 RBC 3.12 L Hgb 9.1 L Hct 27.1 L MCV 87 MCH 29.3 MCHC 33.8 RDW 16.0 H Plt Count 259 Sodium 135.3 L Potassium 5.5 H Chloride 108 H Carbon Dioxide 20 L Anion Gap 7 BUN 65 H Creatinine 9.46 H Est GFR ( Amer) 7 L Glucose 89 Calcium 7.8 L Magnesium 1.8 Total Bilirubin 0.2 AST 28 Alkaline Phosphatase 62 Total Protein 5.2 L Albumin 2.7 L 11/27/20 04:50 Creatine Kinase 296 H Impressions: Chest X-Ray 11/24/20 16:04 IMPRESSION: NO ACUTE RADIOGRAPHIC FINDING IN THE CHEST. Abdomen/Pelvis CT 11/24/20 20:51 IMPRESSION: Satisfactory position with a Sneed catheter. Mild thickening of the urinary bladder, which may be due to cystitis. Mild bilateral hydronephrosis without evidence of urolithiasis or hydroureter. Diffuse sclerotic metastasis with no pathologic fracture. This may be secondary to rectal cancer, as there circumferential thickening with a left perirectal lymph node. Assessment & Plan - Diagnosis (1) Acute kidney injury superimposed on chronic kidney disease Is this a current diagnosis for this admission?: Yes Plan: Due to acute obstructive uropathy associated with bilateral hydronephrosis and possible superimposed prerenal azotemia. Unknown actual baseline creatinine. Initial admitting BUN of 252 with creatinine of 42. Currently the patient is nonoliguric with good urine output. Unfortunately the patient's kidney function did not improve as I expected. His creatinine remained to be elevated at 9.46 with EGFR of 7. I suspect the patient could have an underlying chronic kidney disease due to chronic obstructive uropathy. Due to persistent abnormal kidney function, I will dialyze him again today. I will plan to continue hemodialysis as an outpatient and plan to have a PermCath placed so he can go home. I asked her vascular surgeon, Dr. Hobson to schedule the patient for PermCath placement. I explained this to the patient and hopefully he did understand. I also tried to call his , Ms. Wilma Saba at [phone] but nobody has picked up. We will do dialysis today for 2.5 hours, using the patient's dialysis catheter, with 2 potassium bath, blood flow rate of 250 mL per minute, dialysate flow rate of 600 mL per minute, ultrafiltration none, no heparin and Procrit with 10,000 units during dialysis intravenously. Patient is currently being monitored throughout dialysis treatment. (2) Hydronephrosis Qualifiers: Hydronephrosis type: other Qualified Code(s): N13.39 - Other hydronephrosis Is this a current diagnosis for this admission?: Yes Plan: Bilateral hydronephrosis seen on CT scan on admission. Currently relieved with Sneed catheter. Patient has history of JAMESON requiring one dialysis treatment last summer when he was [facility]. Patient tells me today that he has seen the urologist in [place] but could not exactly remember when was the last time he saw the urologist. The patient is to be discharged with indwelling Sneed catheter and needs to set up follow-up with urologist upon discharge. (3) Acute metabolic encephalopathy Is this a current diagnosis for this admission?: Yes Plan: Most likely secondary to uremic encephalopathy. Improved. (4) Chronic kidney disease-mineral and bone disorder Is this a current diagnosis for this admission?: Yes Plan: Initial phosphorus of 14 with PTH of 394. Repeat phosphorus was 3.5 with PTH of 203. Continue calcitriol. (5) Anemia Qualifiers: Anemia type: unspecified type Qualified Code(s): D64.9 - Anemia, unspecified Is this a current diagnosis for this admission?: Yes Plan: Likely due to anemia of chronic kidney disease. Good iron panel. Retacrit during dialysis. (6) Hypertension Qualifiers: Hypertension type: essential hypertension Qualified Code(s): I10 - Essential (primary) hypertension Is this a current diagnosis for this admission?: Yes Plan: Fairly controlled. (7) Hypocalcemia Is this a current diagnosis for this admission?: Yes Plan: On calcium carbonate. (8) Bony metastasis Is this a current diagnosis for this admission?: Yes Plan: Being worked up for possible rectal cancer. Patient evaluated by GI and planned for colonoscopy but unable to tolerate the bowel prep. (9) Uremia Is this a current diagnosis for this admission?: Yes Plan: Improved. - Notes Notes: Discussed with Dr. Isaacs.
[2020-12-05] MEDS ORDERED: HEPARIN SOD (PORCINE) 1,000 UNIT/ML 10 ML VIAL IV PRN (05:00)
[2020-12-05] MEDS ORDERED: NORMAL SALINE 1000 ML 1,000 ML IV PRN (05:00)
[2020-12-05] MEDS: PANTOPRAZOLE SODIUM 20 MG TABLET.DR PO SCH (05:21)
[2020-12-05] MEDS: HEPARIN SOD (PORCINE) 5,000 UNIT/ML 1 ML VIAL SUBCUT SCH ×3 (05:21→22:41)
[2020-12-05 05:23] LABS: ABSOLUTE EOSINOPHILS # (AUTO) 0.3 10^3/uL (0.0-0.6); ABSOLUTE LYMPHOCYTES (AUTO) 0.9 10^3/uL (0.5-4.7); ABSOLUTE MONOCYTES (AUTO) 0.7 10^3/uL (0.1-1.4); ABSOLUTE NEUT (AUTO) 2.7 10^3/uL (1.7-8.2); BASOPHILS % (AUTO) 0.9 % (0-2); EOSINOPHILS % (AUTO) 6.1 % (0-6); HEMATOCRIT 26.7 % (37.9-51.0); HEMOGLOBIN 8.8 g/dL (13.5-17.0); LYMPHOCYTES % (AUTO) 19.4 % (13-45); MEAN CORPUSCULAR HEMOGLOBIN 29.2 pg (27.0-33.4); MEAN CORPUSCULAR VOLUME 88 fl (80-97); MONOCYTES % (AUTO) 14.8 % (3-13); PLATELET COUNT 251 10^3/uL (150-450); RED BLOOD COUNT 3.02 10^6/uL (4.35-5.55); RED CELL DISTRIBUTION WIDTH 16.3 % (11.5-14.0); SEGMENTED NEUTROPHILS % (AUTO) 58.8 % (42-78); TOTAL CELLS COUNTED % (AUTO) 100 %; WHITE BLOOD COUNT 4.6 10^3/uL (4.0-10.5)
[2020-12-05 05:39] LABS: ANION GAP 5 (5-19); BLOOD UREA NITROGEN 49 mg/dL (7-20); CALCIUM 7.8 mg/dL (8.4-10.2); CARBON DIOXIDE 26 mmol/L (22-30); CHLORIDE 104 mmol/L (98-107); GLUCOSE 101 mg/dL (75-110); PHOSPHORUS 4.1 mg/dL (2.5-4.5)
--- NOTE | 2020-12-05 05:41 | PDOC CONSULTATION ---
Consultation Consult Date: 12/04/20 Provider Consulted: SURGICAL SURGICALIST Consult reason:: Dialysis access, chronic renal failure History of Present Illness Admission Date/PCP: 11/25/20 18:09 History of Present Illness: LINDA COOPER is a 60 year old male with renal failure. He has been receiving dialysis through a temporary dialysis catheter in his right groin. This was placed several days ago. The patient will require long-term dialysis, and request has been made for permacath placement. Upon my evaluation, the patient is currently in dialysis. He denies any chest pain, shortness of breath, fevers, chills, nausea, vomiting, abdominal pain, dizziness, orthostasis, headache, blurry vision. Past Medical History Cardiac Medical History: Reports: Hypertension Denies: Congestive Heart Failure, Myocardial Infarction Pulmonary Medical History: Denies: Asthma, Chronic Obstructive Pulmonary Disease (COPD), Sleep Apnea EENT Medical History: Denies: Cataracts, Ears, Nose, Throat Endocrine Medical History: Denies: Diabetes Mellitus Type 1, Diabetes Mellitus Type 2 Renal/ Medical History: Reports: Other - Single episode acute kidney injury 6 months ago Denies: Chronic Kidney Disease Malignancy Medical History: Reports: None GI Medical History: Denies: Cirrhosis, Diverticulitis, Gastroesophageal Reflux Disease Psychiatric Medical History: Denies: Alcohol Dependency, Depression, Tobacco Dependency Traumatic Medical History: Reports: None Hematology: Denies: Anemia, Hemophilia, Sickle Cell Disease Infectious Medical History: Reports: None Past Surgical History Past Surgical History: Reports: None Social History Lives with: Family Smoking Status: Unknown if Ever Smoked Electronic Cigarette use?: No Frequency of Alcohol Use: Rare Hx Recreational Drug Use: Yes Drugs: None Hx Prescription Drug Abuse: No - Advance Directive Resuscitation Status: Full Code Family History Family History: Malignancy Parental Family History Reviewed: Yes Children Family History Reviewed: Yes Sibling(s) Family History Reviewed.: Yes Medication/Allergy Home Medications: Tamsulosin HCl [Flomax 0.4 mg Cap.sr] 0.4 mg PO DAILY 11/26/20 Allergies/Adverse Reactions: No Known Allergies Allergy (Unverified 04/17/20 16:22) Review of Systems Constitutional: ABSENT: anorexia, chills, fatigue Eyes: ABSENT: visual disturbances Ears: ABSENT: hearing changes Nose, Mouth, and Throat: ABSENT: sore throat Cardiovascular: ABSENT: chest pain Respiratory: ABSENT: cough Gastrointestinal: ABSENT: abdominal pain, nausea, vomiting Genitourinary: ABSENT: dysuria Musculoskeletal: ABSENT: back pain Integumentary: ABSENT: pruritus, rash Neurological: ABSENT: confusion, convulsions, dizziness Psychiatric: ABSENT: anxiety, depression Endocrine: ABSENT: cold intolerance, heat intolerance Hematologic/Lymphatic: ABSENT: easy bleeding, easy bruising Physical Exam Vital Signs: Temp Pulse Resp BP Pulse Ox 98.1 F 78 18 132/80 H 100 12/04/20 11:52 12/04/20 14:00 12/04/20 11:52 12/04/20 11:52 12/04/20 11:52 Intake & Output 12/03/20 12/04/20 12/05/20 06:59 06:59 06:59 Intake Total 4085 1516 472 Output Total 5412 2575 500 Balance 660 -1059 -28 Weight 96 kg 96 kg General appearance: PRESENT: no acute distress, cooperative Head exam: PRESENT: atraumatic, normocephalic Eye exam: PRESENT: EOMI, PERRLA. ABSENT: scleral icterus Mouth exam: PRESENT: moist, neck supple Neck exam: ABSENT: meningismus, tenderness, thyromegaly, tracheal deviation Respiratory exam: PRESENT: unlabored. ABSENT: tachypnea, wheezes Cardiovascular exam: ABSENT: tachycardia GI/Abdominal exam: PRESENT: soft. ABSENT: distended, tenderness Rectal exam: PRESENT: deferred Extremities exam: ABSENT: clubbing Musculoskeletal exam: ABSENT: deformity Neurological exam: PRESENT: alert, awake, oriented to person, oriented to place, oriented to time Psychiatric exam: ABSENT: agitated, anxious, depressed Focused psych exam: ABSENT: delusional Skin exam: ABSENT: erythema, jaundice Results Laboratory Results: 12/04/20 04:25 12/04/20 04:25 12/04/20 12/04/20 12/04/20 04:25 04:25 13:05 WBC 5.3 RBC 3.12 L Hgb 9.1 L Hct 27.1 L MCV 87 MCH 29.3 MCHC 33.8 RDW 16.0 H Plt Count 259 Sodium 135.3 L Potassium 5.5 H Chloride 108 H Carbon Dioxide 20 L Anion Gap 7 BUN 65 H Creatinine 9.46 H Est GFR ( Amer) 7 L Glucose 89 Calcium 7.8 L Magnesium 1.8 Total Bilirubin 0.2 AST 28 Alkaline Phosphatase 62 Total Protein 5.2 L Albumin 2.7 L Urine Color COLORLESS Urine Appearance CLEAR Urine pH 7.0 Ur Specific Naylor 1.008 Urine Protein NEGATIVE Urine Glucose (UA) 50 H Urine Ketones NEGATIVE Urine Blood MODERATE H Urine Nitrite NEGATIVE Ur Leukocyte Esterase SMALL H Urine WBC (Auto) 2 Urine RBC (Auto) 11 11/27/20 04:50 Creatine Kinase 296 H Impressions: Chest X-Ray 11/24/20 16:04 IMPRESSION: NO ACUTE RADIOGRAPHIC FINDING IN THE CHEST. Abdomen/Pelvis CT 11/24/20 20:51 IMPRESSION: Satisfactory position with a Sneed catheter. Mild thickening of the urinary bladder, which may be due to cystitis. Mild bilateral hydronephrosis without evidence of urolithiasis or hydroureter. Diffuse sclerotic metastasis with no pathologic fracture. This may be secondary to rectal cancer, as there circumferential thickening with a left perirectal lymph node. Assessment & Plan - Diagnosis (1) Acute kidney injury superimposed on chronic kidney disease Is this a current diagnosis for this admission?: Yes - Plan Summary Plan Summary: 60-year-old male requiring dialysis, in need of a permacath. I have discussed this with the patient at length today. N.p.o. after midnight. Plan for permacath tomorrow. Risk/benefits discussed with srikanth lisa and all questions answered. An attempt was made to contact his for consent, but she could not be reached. Will try again tomorrow.
[2020-12-05] MEDS: TAMSULOSIN HCL 0.4 MG CAP.SR.24H PO SCH (09:06)
[2020-12-05] MEDS: CALCIUM CARBONATE 600 MG/VITAMIN D3 400 UNIT TABLET PO SCH (09:06)
[2020-12-05] MEDS: CALCIUM CARBONATE 500 MG TAB.CHEW PO SCH ×4 (09:06→22:50)
[2020-12-05] MEDS: CALCITRIOL 0.25 MCG CAPSULE PO SCH (09:06)
[2020-12-05] MEDS: PANTOT AC/MIN OIL/PET HY-PHL OINT 50 GM TOP SCH ×2 (09:07→18:02)
--- NOTE | 2020-12-05 10:07 | RADIOLOGY REPORT (SQ) ---
EXAM DESCRIPTION: CT HEAD WITHOUT IMAGES COMPLETED DATE/TIME: 12/05/2020 9:37 am REASON FOR STUDY: AMS COMPARISON: None. TECHNIQUE: Axial images acquired through the brain without intravenous contrast. Images reviewed wi th bone, brain and subdural windows. Additional sagittal and coronal reconstructions were generated. Images stored on PACS. All CT scanners at this facility use dose modulation, iterative reconstruction, and/or weight based d osing when appropriate to reduce radiation dose to as low as reasonably achievable (ALARA). [facility]: Dose Right [facility]: CareDose [facility]: Dose Right [facility]: Teradose 4D [facility]: [employer] RADIATION DOSE: CT Rad equipment meets quality standard of care and radiation dose reduction techniq ues were employed. CTDIvol: 48.9 mGy. DLP: 960 mGy-cm. mGy. LIMITATIONS: None. FINDINGS: VENTRICLES: Normal size and contour. CEREBRUM: No masses. No hemorrhage. No midline shift. No evidence for acute infarction. Normal gra y/white matter differentiation. No areas of low density in the white matter. CEREBELLUM: No masses. No hemorrhage. No alteration of density. No evidence for acute infarction. EXTRAAXIAL SPACES: No fluid collections. No masses. ORBITS AND GLOBE: No intra- or extraconal masses. Normal contour of globe without masses. CALVARIUM: No fracture. PARANASAL SINUSES: No fluid or mucosal thickening. SOFT TISSUES: No mass or hematoma. OTHER: No other significant finding. IMPRESSION: NORMAL BRAIN CT WITHOUT CONTRAST. EVIDENCE OF ACUTE STROKE: NO. COMMENT: Quality ID # [id number]: Final reports with documentation of one or more dose reduction techniques (e.g., Automated exposure control, adjustment of the mA and/or kV according to patient size, use of iterative reconstruction technique) TECHNICAL DOCUMENTATION: JOB ID: [id number] [employer]- All Rights Reserved Reading location - IP/workstation name: [email or web address]
[2020-12-05] MEDS ORDERED: FENTANYL CITRATE INJ/PF 100 MCG/2 ML AMPUL ONE (13:31)
[2020-12-05] MEDS ORDERED: PROPOFOL INJ 200 MG/20 ML VIAL IV ONE (13:31)
[2020-12-05] MEDS ORDERED: MIDAZOLAM 2 MG/2 ML INJ ONE (13:31)
[2020-12-05] MEDS ORDERED: ONDANSETRON HCL INJ/PF 4 MG/2 ML SDV ONE (13:31)
[2020-12-05] MEDS ORDERED: LIDOCAINE 1% INJ-PF (10 MG/ML) 30 ML SDV ONE (14:02)
[2020-12-05] MEDS ORDERED: HEPARIN SOD (PORCINE) 1,000 UNIT/ML 1 ML VIAL ONE (14:03)
[2020-12-05] MEDS ORDERED: CEFAZOLIN INJ 1 GM VIAL ONE (14:43)
[2020-12-05] MEDS ORDERED: POLYETHYLENE GLYCOL 3350 POWDER 17 GM/1 PACKET PO ONE (15:00)
[2020-12-05] MEDS ORDERED: MEPERIDINE HCL/PF INJ 25 MG/1 ML DISP.SYRIN IV PRN (15:19)
[2020-12-05] MEDS ORDERED: FENTANYL CITRATE INJ/PF 100 MCG/2 ML AMPUL IV PRN ×3 (15:19)
[2020-12-05] MEDS ORDERED: DIPHENHYDRAMINE HCL 50 MG/ML VIAL IV PRN (15:19)
--- NOTE | 2020-12-05 15:44 | Operative Report ---
Nonrecallable Operative Report DATE OF SURGERY: 12/05/20 PREOPERATIVE DIAGNOSIS: renal failure POSTOPERATIVE DIAGNOSIS: same OPERATION: permacath placement rt chest SURGEON: PALOMO CARROLL [employer] TRIMMER: DEANA aponte assist student ANESTHESIA: Moderate Sedation TISSUE REMOVED OR ALTERED: none COMPLICATIONS: none ESTIMATED BLOOD LOSS: 25cc INTRAOPERATIVE FINDINGS: see note PROCEDURE: Patient was brought to the operating awake alert stable condition placed on the operative table supine position and given IV sedation. The right neck and chest were prepped and draped in usual sterile fashion. After appropriate timeout and site verification the procedure commenced. The right internal jugular vein was accessed with a 22-gauge finder needle. After that it was accessed with a 18-gauge needle. Through the needle a wire was placed into the superior vena cava using fluoroscopy. The dilator introducer was placed over the wire into the superior vena cava. A point was picked on the right anterior chest wall just below the clavicle were the skin was anesthetized with 1% lidocaine plain. A small 3 mm skin gabi was made. Then using the tunnel maker attached to the permacath it was tunneled from that point to the internal jugular vein stick site. It was a dual-lumen 28 cm long PermCath. Once we reached to the internal jugular vein stick site we removed the tunnel maker from the catheter and placed it into the tear-away introducer. The tear-away introducer was then torn away. Leaving the catheter in the superior vena cava with the tip just above the right atrium. The catheter injected and withdrew very easily. The internal jugular vein stick site skin was then closed with 4-0 Vicryl in the subdermal layer and then a Steri-Strip was used to complete that portion of the procedure the exit site of the catheter was tacked to the skin with 3-0 Prolene suture. Sterile dressing was then applied. This completed the procedure. Estimated blood loss was less than 25 cc sponge needle counts were correct x2 the patient was returned to recovery in stable condition
--- NOTE | 2020-12-05 16:18 | RADIOLOGY REPORT (SQ) ---
EXAM DESCRIPTION: CHEST SINGLE VIEW IMAGES COMPLETED DATE/TIME: 12/05/2020 4:10 pm REASON FOR STUDY: Permacath placement COMPARISON: 11/24/2020 EXAM PARAMETERS: NUMBER OF VIEWS: One view. TECHNIQUE: Single frontal radiographic view of the chest acquired. RADIATION DOSE: NA LIMITATIONS: None. FINDINGS: LUNGS AND PLEURA: No opacities, masses or pneumothorax. No pleural effusion. MEDIASTINUM AND HILAR STRUCTURES: No masses. Contour normal. HEART AND VASCULAR STRUCTURES: Heart normal in size. Normal vasculature. BONES: No acute findings. HARDWARE: None in the chest. OTHER: Right IJ central line tip overlying SVC. IMPRESSION: No pneumothorax. TECHNICAL DOCUMENTATION: JOB ID: [id number] 2010 [employer]- All Rights Reserved Reading location - IP/workstation name: [email or web address]
--- NOTE | 2020-12-05 16:18 | RADIOLOGY REPORT (SQ) ---
EXAM DESCRIPTION: FLUORO/CV PLACEMENT IMAGES COMPLETED DATE/TIME: 12/05/2020 3:46 pm REASON FOR STUDY: PERMACATH COMPARISON: None. FLUOROSCOPY TIME: 0.5 minutes 3 images saved to PACS. TECHNIQUE: Intra-operative images acquired during surgical procedure to evaluate progress. NUMBER OF IMAGES: 3 LIMITATIONS: None. FINDINGS: Right central line tip overlying SVC. IMPRESSION: IMAGE(S) OBTAINED DURING PROCEDURE. COMMENT: Quality ID [id number]: Final reports for procedures using fluoroscopy that document radiation exp osure indices, or exposure time and number of fluorographic images (if radiation exposure indices are not available) Please consult full operative report of the attending physician for description of the procedure. TECHNICAL DOCUMENTATION: JOB ID: [id number] 2010 [employer]- All Rights Reserved Reading location - IP/workstation name: [email or web address]
--- NOTE | 2020-12-05 16:52 | PDOC PROGRESS REPORT ---
Subjective Date:: 12/05/20 Subjective:: As per attending physician's note LINDA COOPER is a 59 year old male with a history of acute kidney failure in April as well as hypertension. In April he presented with similar symptoms with a BUN of 49 and a creatinine of 6.17. He was able to transfer to [facility] and underwent a single dialysis treatment. It was felt that he had obstructive uropathy at that time. At the time of this admission a Sneed catheter was placed and 2.25 L of urine was drained. Sneed catheter remains in place. Because of the high uremia the patient does exhibit mild confusion but eventually is able to answer questions correctly. He could not remember the name of his antihypertensive medication. He did remember his primary care physician is Dr. Hylton in [place]. He knew he was in [facility] in [place]. He knew the month and the fact that his birthday is next week. When he presented initially yesterday his hemoglobin was 7.2 but dropped to 6.4 with hydration. He was transfused 2 units of packed cells. His vitals have been relatively stable since then. The emergency department physician did contact multiple hospitals for transfer as we do not have nephrology on the weekends. The patient is making urine. The plan will be to admit the patient and monitor closely. We will administer IV fluids. His skin is extremely dry and he exhibits skin tenting. His hemoglobin today was up to 8.5 and we will monitor closely. His calcium did drop to 7.0 and 1 g of calcium has been ordered. His albumin is normal at 3.9. Electrolytes are unremarkable. Serology was performed and the patient tested negative for Covid virus. Since several facilities have refused transfer I will admit him to the hospitalist service. IV fluids with strict intake and output monitoring. If he remains stable we will have nephrology evaluate him on Friday. If he does not remain stable then we will need to attempt to transfer again. 12/02/2020. No acute overnight. Patient comfortably sitting in no apparent distress, denies any fever, chills, nausea, vomiting. Patient nonoliguric, with a balance of 480. Currently on IV fluids. 12/03/2020. No acute events overnight. Patient comfortably sitting in bed no apparent distress, pleasant and cooperative with physical examination, alert and oriented, having normal bowel and bladder movement, appropriate urine output. 12/04/2020. No acute events overnight. Patient comfortably sitting mid-upper distress, pleasant and cooperative with physical examination, alert and oriented to activity however does not seem to have a clear understanding of her underlying medical condition, as per my conversation with Dr. Castle patient will need to have scheduled dialysis after discharge, patient is stating that he has been here for 10 days and he wants to go home only, will contact his and and update her about her about the need for continued week hemodialysis upon discharge. Patient is scheduled to have hemodialysis today and permacath placed today. 12/05/2020. No acute events overnight. Patient is waiting for his Port-A-Cath placement today. Does not appear to be in any apparent distress, alert and oriented x3, very pleasant and cooperative, unfortunately when his medical condition is explained to him he does not have the capacity to grasp it and also he forgets very easily, today I was able to have a long discussion with his and his sister were present in the room. As per and sister who has seen him the day prior to admission they agreed that he was very confused back pain however he has improved much and they are stating that this is his baseline. I discussed his medical condition with his and his sister and explained to them the importance of close medical follow-up, especially following-up with Dr. Castle and to keep up with his hemodialysis and also to follow-up with his urologist, I also informed him about his rectal mass and the importance of g etting a biopsy for diagnosis. I contacted Dr. Murphy to see if it was possible to do his colonoscopy as outpatient but Dr. Reinoso he prefers to do it in the hospital. I contacted to give Dr. Reinoso and he has agreed to do colonoscopy tomorrow for possible biopsy. Reason For Visit: UREMIA,RENAL FAILURE Physical Exam Vital Signs: Temp Pulse Resp BP Pulse Ox 98.2 F 81 21 H 150/94 H 100 12/05/20 14:17 12/05/20 14:17 12/05/20 14:17 12/05/20 14:17 12/05/20 14:17 Intake & Output 12/04/20 12/05/20 12/06/20 06:59 06:59 06:59 Intake Total 1516 2682 0 Output Total 2575 2520 700 Balance -1059 162 -700 Weight 96 kg 63 kg General appearance: PRESENT: no acute distress, well-developed, well-nourished Head exam: PRESENT: atraumatic, normocephalic Respiratory exam: PRESENT: clear to auscultation wilver. ABSENT: rales, rhonchi, wheezes Cardiovascular exam: PRESENT: RRR. ABSENT: diastolic murmur, rubs, systolic murmur GI/Abdominal exam: PRESENT: normal bowel sounds, soft. ABSENT: distended, guarding, mass, organolmegaly, rebound, tenderness Neurological exam: PRESENT: alert, awake, oriented to person, oriented to place, CN II-XII grossly intact. ABSENT: motor sensory deficit Results Laboratory Results: 12/05/20 04:21 12/05/20 04:21 12/05/20 12/05/20 04:21 04:21 WBC 4.6 RBC 3.02 L Hgb 8.8 L Hct 26.7 L MCV 88 MCH 29.2 MCHC 33.0 RDW 16.3 H Plt Count 251 Seg Neutrophils % 58.8 Sodium 134.5 L Potassium 5.0 Chloride 104 Carbon Dioxide 26 Anion Gap 5 BUN 49 H Creatinine 6.93 H Est GFR ( Amer) 10 L Glucose 101 Calcium 7.8 L Phosphorus 4.1 11/27/20 04:50 Creatine Kinase 296 H Impressions: Abdomen/Pelvis CT 11/24/20 20:51 IMPRESSION: Satisfactory position with a Sneed catheter. Mild thickening of the urinary bladder, which may be due to cystitis. Mild bilateral hydronephrosis without evidence of urolithiasis or hydroureter. Diffuse sclerotic metastasis with no pathologic fracture. This may be secondary to rectal cancer, as there circumferential thickening with a left perirectal lymph node. Chest X-Ray 12/05/20 00:00 IMPRESSION: No pneumothorax. Guidance Fluoroscopy 12/05/20 00:00 IMPRESSION: IMAGE(S) OBTAINED DURING PROCEDURE. Head CT 12/05/20 00:00 IMPRESSION: NORMAL BRAIN CT WITHOUT CONTRAST. EVIDENCE OF ACUTE STROKE: NO. Assessment and Plan - Diagnosis (1) Acute kidney injury (JAMESON) with acute tubular necrosis (ATN) Is this a current diagnosis for this admission?: Yes Plan: No significant change compared to yesterday. Nonoliguric. Receiving scheduled hemodialysis. Status post Port-A-Cath placement on 11/04/2021. Patient will be discharged to follow-up with Dr. Castle and continue his scheduled hemodialysis upon discharge. This was most likely due to combination of dehydration and chronic urinary obstruction complicated by underlying long-standing CKD given that he presented with elevated K/Phos/PTH and low Ca/hgb. Nephrology on board. Recommendations noted. Case management has been consulted. Continue strict in and out, monitor vitals status. Last HD received on 12/04, possibly will get HD again on tomorrow. (2) Acute metabolic encephalopathy Is this a current diagnosis for this admission?: Yes Plan: Likely due to uremic symptoms because of acute renal failure. Alert and oriented x3 however does not appear to have a good insight into his underlying medical condition. Back to baseline as per family. Continue fall, seizure and aspiration precautions. (3) Anemia Qualifiers: Anemia type: unspecified type Qualified Code(s): D64.9 - Anemia, unspecified Is this a current diagnosis for this admission?: Yes Plan: Multifactorial. Likely due to malignancy, hematuria, long-standing CKD. Hemoccult negative. Iron studies suggestive of anemia of chronic disease. Status post 3 PRBC transfusion on admission. H&H stable and trending up. Status post a Procrit administration by nephrology. Monitor H&H, supportive transfusion. (4) Bony metastasis Is this a current diagnosis for this admission?: Yes Plan: Concern for metastatic colon/rectal cancer based on CT showing thickened rectum GI has been consulted, patient is scheduled for colonoscopy with possible biopsy tomorrow. (5) Hydronephrosis Qualifiers: Hydronephrosis type: other Qualified Code(s): N13.39 - Other hydronephrosis Is this a current diagnosis for this admission?: Yes Plan: CT abdomen positive for mild bilateral hydronephrosis without evidence of urolithiasis or hydroureter. Outpatient urology follow-up. Unfortunately no urology consult available at [facility] at this point. (6) Hypertension Qualifiers: Hypertension type: essential hypertension Qualified Code(s): I10 - Essential (primary) hypertension Is this a current diagnosis for this admission?: Yes Plan: Euvolemic. Normotensive. Monitor vitals. (7) Hypocalcemia Is this a current diagnosis for this admission?: Yes Plan: Improving. Continue supplemental calcium. BMP tomorrow. (8) Urinary retention Is this a current diagnosis for this admission?: Yes Plan: Urinary retention c/b Hydronephrosis s/p Sneed catheter placement Outpatient urology f/u He will need to be discharged with Sneed in place - Plan Summary Summary: Non-oliguric Acute kidney injury on likely CKD: due to combination of dehydration and chronic urinary obstruction. Now improving with IVF and Sneed catheter placement. He likely has underlying long-standing CKD given that he presented with elevated K/Phos/PTH and low Ca/hgb. - Nephrology consulted - continue IVF - last HD received on 11/29, possibly will get HD again on Friday - R groin HD catheter placed by general surgery Urinary retention c/b Hydronephrosis s/p Sneed catheter placement - outpatient urology f/u - he will need to be discharged with Sneed in place Bony metastases: concern for metastatic colon/rectal cancer based on CT showing thickened rectum - GI consulted 11/28, plan was for colonoscopy on 11/29 but he was not able to tolerate the prep and the procedure was cancelled until his mental/clinical status improves Anemia - due to malignancy vs hematuria vs long-standing CKD - iron studies - Epo - goal hgb >7 Uremic encephalopathy - anticipate improvement with above treatment - fall precautions - he does not have capacity to leave the hospital AMA Essential Hypertension: much improved - medications adjusted DVT ppx: heparin Q8H - Time Time Spent with patient: 35 or more minutes Anticipated Discharge Disposition: Home with Home Health Anticipated Discharge Timeframe: within 24 hours
[2020-12-05] MEDS ORDERED: POLYETHYLENE GLYCOL 3350 238 GM POWDER PO ONE (17:45)
[2020-12-05] MEDS: NORMAL SALINE 1000 ML 1,000 ML IV PRN (19:00)
[2020-12-05] MEDS ORDERED: EPOETIN ALFA-EPBX 10,000 UNIT in SYRINGE, DISPOSABLE, 1 EACH IV PRN (23:46)
[2020-12-06] MEDS ORDERED: DEXTROSE 40% GEL 15 GM TUBE PO PRN (04:42)
[2020-12-06] MEDS ORDERED: NORMAL SALINE 1000 ML 1,000 ML IV PRN (05:00)
[2020-12-06] MEDS ORDERED: HEPARIN SOD (PORCINE) 1,000 UNIT/ML 10 ML VIAL IV PRN (05:00)
[2020-12-06] MEDS: HEPARIN SOD (PORCINE) 5,000 UNIT/ML 1 ML VIAL SUBCUT SCH ×3 (05:18→21:26)
[2020-12-06] MEDS: PANTOPRAZOLE SODIUM 20 MG TABLET.DR PO SCH (05:18)
[2020-12-06 06:09] LABS: HEMATOCRIT 28.1 % (37.9-51.0); HEMOGLOBIN 9.5 g/dL (13.5-17.0); MEAN CORPUSCULAR HEMOGLOBIN 29.9 pg (27.0-33.4); MEAN CORPUSCULAR HGB CONC 33.9 g/dL (32.0-36.0); MEAN CORPUSCULAR VOLUME 88 fl (80-97); PLATELET COUNT 267 10^3/uL (150-450); RED CELL DISTRIBUTION WIDTH 16.6 % (11.5-14.0); WHITE BLOOD COUNT 5.3 10^3/uL (4.0-10.5)
[2020-12-06 06:27] LABS: ANION GAP 9 (5-19); BLOOD UREA NITROGEN 58 mg/dL (7-20); CALCIUM 8.1 mg/dL (8.4-10.2); CARBON DIOXIDE 23 mmol/L (22-30); CHLORIDE 108 mmol/L (98-107); GLUCOSE 74 mg/dL (75-110); PHOSPHORUS 5.5 mg/dL (2.5-4.5)
[2020-12-06 06:55] LABS: POTASSIUM 6.4 mmol/L (3.6-5.0)
[2020-12-06] MEDS: NORMAL SALINE 1000 ML 1,000 ML IV PRN (07:40)
[2020-12-06] MEDS: CALCIUM CARBONATE 500 MG TAB.CHEW PO SCH ×4 (08:22→21:25)
--- NOTE | 2020-12-06 10:32 | PDOC PROGRESS REPORT ---
Subjective Date:: 12/06/20 Subjective:: As per attending physician's note LINDA COOPER is a 59 year old male with a history of acute kidney failure in April as well as hypertension. In April he presented with similar symptoms with a BUN of 49 and a creatinine of 6.17. He was able to transfer to [facility] and underwent a single dialysis treatment. It was felt that he had obstructive uropathy at that time. At the time of this admission a Sneed catheter was placed and 2.25 L of urine was drained. Sneed catheter remains in place. Because of the high uremia the patient does exhibit mild confusion but eventually is able to answer questions correctly. He could not remember the name of his antihypertensive medication. He did remember his primary care physician is Dr. Hylton in [place]. He knew he was in [facility] in [place]. He knew the month and the fact that his birthday is next week. When he presented initially yesterday his hemoglobin was 7.2 but dropped to 6.4 with hydration. He was transfused 2 units of packed cells. His vitals have been relatively stable since then. The emergency department physician did contact multiple hospitals for transfer as we do not have nephrology on the weekends. The patient is making urine. The plan will be to admit the patient and monitor closely. We will administer IV fluids. His skin is extremely dry and he exhibits skin tenting. His hemoglobin today was up to 8.5 and we will monitor closely. His calcium did drop to 7.0 and 1 g of calcium has been ordered. His albumin is normal at 3.9. Electrolytes are unremarkable. Serology was performed and the patient tested negative for Covid virus. Since several facilities have refused transfer I will admit him to the hospitalist service. IV fluids with strict intake and output monitoring. If he remains stable we will have nephrology evaluate him on Friday. If he does not remain stable then we will need to attempt to transfer again. 12/02/2020. No acute overnight. Patient comfortably sitting in no apparent distress, denies any fever, chills, nausea, vomiting. Patient nonoliguric, with a balance of 480. Currently on IV fluids. 12/03/2020. No acute events overnight. Patient comfortably sitting in bed no apparent distress, pleasant and cooperative with physical examination, alert and oriented, having normal bowel and bladder movement, appropriate urine output. 12/04/2020. No acute events overnight. Patient comfortably sitting mid-upper distress, pleasant and cooperative with physical examination, alert and oriented to activity however does not seem to have a clear understanding of her underlying medical condition, as per my conversation with Dr. Castle patient will need to have scheduled dialysis after discharge, patient is stating that he has been here for 10 days and he wants to go home only, will contact his and and update her about her about the need for continued week hemodialysis upon discharge. Patient is scheduled to have hemodialysis today and permacath placed today. 12/05/2020. No acute events overnight. Patient is waiting for his Port-A-Cath placement today. Does not appear to be in any apparent distress, alert and oriented x3, very pleasant and cooperative, unfortunately when his medical condition is explained to him he does not have the capacity to grasp it and also he forgets very easily, today I was able to have a long discussion with his and his sister were present in the room. As per and sister who has seen him the day prior to admission they agreed that he was very confused back pain however he has improved much and they are stating that this is his baseline. I discussed his medical condition with his and his sister and explained to them the importance of close medical follow-up, especially following-up with Dr. Castle and to keep up with his hemodialysis and also to follow-up with his urologist, I also informed him about his rectal mass and the importance of g etting a biopsy for diagnosis. I contacted Dr. Murphy to see if it was possible to do his colonoscopy as outpatient but Dr. Reinoso he prefers to do it in the hospital. I contacted to give Dr. Reinoso and he has agreed to do colonoscopy tomorrow for possible biopsy. 12/06/2020. No acute events overnight. Patient is prepped for possible colonoscopy with rectal mass biopsy today, comfortably resting in bed in no apparent distress, stating that he has had several bowel movements overnight. Denies any fever, chills, nausea, vomiting. Reason For Visit: UREMIA,RENAL FAILURE Physical Exam Vital Signs: Temp Pulse Resp BP Pulse Ox 98.3 F 73 17 115/72 97 12/06/20 07:44 12/06/20 07:44 12/06/20 07:44 12/06/20 07:44 12/06/20 07:44 Intake & Output 12/05/20 12/06/20 12/07/20 06:59 06:59 06:59 Intake Total 2682 832 633 Output Total 2520 2600 Balance 162 -1768 633 Weight 63 kg 63.2 kg General appearance: PRESENT: no acute distress, well-developed, well-nourished Head exam: PRESENT: atraumatic, normocephalic Respiratory exam: PRESENT: clear to auscultation wilver. ABSENT: rales, rhonchi, wheezes Cardiovascular exam: PRESENT: RRR. ABSENT: diastolic murmur, rubs, systolic murmur GI/Abdominal exam: PRESENT: normal bowel sounds, soft. ABSENT: distended, guarding, mass, organolmegaly, rebound, tenderness Extremities exam: PRESENT: full ROM. ABSENT: calf tenderness, clubbing, pedal edema Neurological exam: PRESENT: alert, awake, oriented to person, oriented to place, CN II-XII grossly intact. ABSENT: motor sensory deficit Results Laboratory Results: 12/06/20 04:53 12/06/20 04:53 12/06/20 12/06/20 04:53 04:53 WBC 5.3 RBC 3.20 L Hgb 9.5 L Hct 28.1 L MCV 88 MCH 29.9 MCHC 33.9 RDW 16.6 H Plt Count 267 Sodium 139.9 Potassium 6.4 H* Chloride 108 H Carbon Dioxide 23 Anion Gap 9 BUN 58 H Creatinine 7.68 H Est GFR ( Amer) 9 L Glucose 74 L Calcium 8.1 L Phosphorus 5.5 H Magnesium 1.9 11/27/20 04:50 Creatine Kinase 296 H Impressions: Abdomen/Pelvis CT 11/24/20 20:51 IMPRESSION: Satisfactory position with a Sneed catheter. Mild thickening of the urinary bladder, which may be due to cystitis. Mild bilateral hydronephrosis without evidence of urolithiasis or hydroureter. Diffuse sclerotic metastasis with no pathologic fracture. This may be secondary to rectal cancer, as there circumferential thickening with a left perirectal lymph node. Chest X-Ray 12/05/20 00:00 IMPRESSION: No pneumothorax. Guidance Fluoroscopy 12/05/20 00:00 IMPRESSION: IMAGE(S) OBTAINED DURING PROCEDURE. Head CT 12/05/20 00:00 IMPRESSION: NORMAL BRAIN CT WITHOUT CONTRAST. EVIDENCE OF ACUTE STROKE: NO. Assessment and Plan - Diagnosis (1) Acute kidney injury (JAMESON) with acute tubular necrosis (ATN) Is this a current diagnosis for this admission?: Yes Plan: No significant change compared to yesterday. Nonoliguric. Receiving scheduled hemodialysis. Status post Port-A-Cath placement on 11/04/2021. Patient will be discharged to follow-up with Dr. Castle and continue his scheduled hemodialysis upon discharge. This was most likely due to combination of dehydration and chronic urinary obstruction complicated by underlying long-standing CKD given that he presented with elevated K/Phos/PTH and low Ca/hgb. Nephrology on board. Recommendations noted. Case management has been consulted. Continue strict in and out, monitor vitals status. Last HD received on 12/04, possibly will get HD again on tomorrow. (2) Acute metabolic encephalopathy Is this a current diagnosis for this admission?: Yes Plan: Likely due to uremic symptoms because of acute renal failure. Alert and oriented x3 however does not appear to have a good insight into his underlying medical condition. Back to baseline as per family. Continue fall, seizure and aspiration precautions. (3) Anemia Qualifiers: Anemia type: unspecified type Qualified Code(s): D64.9 - Anemia, unspecified Is this a current diagnosis for this admission?: Yes Plan: Multifactorial. Likely due to malignancy, hematuria, long-standing CKD. Hemoccult negative. Iron studies suggestive of anemia of chronic disease. Status post 3 PRBC transfusion on admission. H&H stable and trending up. Status post a Procrit administration by nephrology. Monitor H&H, supportive transfusion. (4) Bony metastasis Is this a current diagnosis for this admission?: Yes Plan: Concern for metastatic colon/rectal cancer based on CT showing thickened rectum GI has been consulted, patient is scheduled for colonoscopy with possible biopsy today. (5) Hydronephrosis Qualifiers: Hydronephrosis type: other Qualified Code(s): N13.39 - Other hydronephrosis Is this a current diagnosis for this admission?: Yes Plan: CT abdomen positive for mild bilateral hydronephrosis without evidence of urolithiasis or hydroureter. Outpatient urology follow-up. Unfortunately no urology consult available at [facility] at this point. (6) Hypertension Qualifiers: Hypertension type: essential hypertension Qualified Code(s): I10 - Essential (primary) hypertension Is this a current diagnosis for this admission?: Yes Plan: Euvolemic. Normotensive. Monitor vitals. (7) Hypocalcemia Is this a current diagnosis for this admission?: Yes Plan: Improving. Continue supplemental calcium. BMP tomorrow. (8) Urinary retention Is this a current diagnosis for this admission?: Yes Plan: Urinary retention c/b Hydronephrosis s/p Sneed catheter placement Outpatient urology f/u He will need to be discharged with Sneed in place (9) Hyperkalemia Is this a current diagnosis for this admission?: Yes Plan: Due to end-stage renal disease. Hyperkalemia protocol. Scheduled for hemodialysis today. - Plan Summary Summary: Non-oliguric Acute kidney injury on likely CKD: due to combination of dehydration and chronic urinary obstruction. Now improving with IVF and Sneed catheter placement. He likely has underlying long-standing CKD given that he presented with elevated K/Phos/PTH and low Ca/hgb. - Nephrology consulted - continue IVF - last HD received on 11/29, possibly will get HD again on Friday - R groin HD catheter placed by general surgery Urinary retention c/b Hydronephrosis s/p Sneed catheter placement - outpatient urology f/u - he will need to be discharged with Sneed in place Bony metastases: concern for metastatic colon/rectal cancer based on CT showing thickened rectum - GI consulted 11/28, plan was for colonoscopy on 11/29 but he was not able to tolerate the prep and the procedure was cancelled until his mental/clinical status improves Anemia - due to malignancy vs hematuria vs long-standing CKD - iron studies - Epo - goal hgb >7 Uremic encephalopathy - anticipate improvement with above treatment - fall precautions - he does not have capacity to leave the hospital AMA Essential Hypertension: much improved - medications adjusted DVT ppx: heparin Q8H - Time Time Spent with patient: 35 or more minutes Anticipated Discharge Disposition: Home with Home Health Anticipated Discharge Timeframe: within 72 hours
[2020-12-06] MEDS ORDERED: SODIUM POLYSTYRENE SULFONATE 15 GM/60 ML PO ONE (11:00)
--- NOTE | 2020-12-06 11:45 | Operative Report ---
Operative Report DATE OF SURGERY: 12/06/20 Operative Report: The risk, benefits and alternatives of the procedure including the risk of bleeding, perforation requiring surgery have been explained to the patient in detail and informed consent has been obtained. Patient is taken back to the operating room and placed in left, lateral decubital position. Timeout was called. Propofol medication is administered. Rectal examination is done which did not reveal any masses, tears or fissures. An Olympus videoscope was introduced into the patient's rectum. Scope was then carefully advanced all the way to the cecum. Cecum was identified by the usual anatomical landmarks including the ileocecal valve as well as the appendiceal office. Photodocumentation is obtained. Scope was then sequentially pulled back via the various segments of the colon including the ascending colon, pelvic flexure, transverse colon, splenic flexure, descending colon and finally in to the rectosigmoid portions of the colon. Retroflexion maneuver is performed. The risks benefits and alternatives of the procedure explained to the patient in detail and informed consent is obtained.A GIF Olympus video scope was inserted into the patient's mouth and hypopharynx ,the esophagus is identified intubated and insufflated ,the scope was then advanced through the esophagus stomach and duodenum ,retroflexion maneuver is done the esophagus stomach and first and second portions of the duodenum examined PREOPERATIVE DIAGNOSIS: Abnormal CT scan. Bone mets of unknown origin POSTOPERATIVE DIAGNOSIS: Gastritis status post biopsy. Internal hemorrhoids. Mild diverticulosis. Evaluation of rectum did not reveal any thickening. Inflammation noted ascending colon area status post biopsy. No GI source for abnormal CT scan finding OPERATION: Colonoscopy with biopsy. EGD with biopsy SURGEON: TREVER GONZALEZ ANESTHESIA: LMAC TISSUE REMOVED OR ALTERED: As noted above. COMPLICATIONS: None. ESTIMATED BLOOD LOSS: None. INTRAOPERATIVE FINDINGS: As noted above. PROCEDURE: Patient tolerated the procedure well. No immediate postprocedure complications are noted. Patient is sent back to his room in good condition. Follow-up biopsies. Resume previous diet Resume previous activity level Can follow-up as outpatient
[2020-12-06] MEDS: CALCIUM CARBONATE 600 MG/VITAMIN D3 400 UNIT TABLET PO SCH (12:17)
[2020-12-06] MEDS: TAMSULOSIN HCL 0.4 MG CAP.SR.24H PO SCH (12:17)
[2020-12-06] MEDS: CALCITRIOL 0.25 MCG CAPSULE PO SCH (12:18)
[2020-12-06] MEDS: PANTOT AC/MIN OIL/PET HY-PHL OINT 50 GM TOP SCH ×2 (13:54→18:09)
--- NOTE | 2020-12-06 18:04 | PDOC PROGRESS REPORT ---
Subjective Date:: 12/06/20 Subjective:: I am seeing the patient during dialysis this afternoon. Patient had a successful PermCath placement in the right IJ yesterday by Dr. Gamez. The catheter is currently functioning and and has no issues. Patient is tolerating dialysis well. He does not have any complaints and tells me that he is feeling good. He has always been pleasant. He is arranged for outpatient hemodialysis at [facility]. He just needs a rapid Covid testing again as required by [facility]. I repeatedly explained to him as well as Dr. Isaacs that he needs to go to outpatient hemodialysis upon discharge 3 times a week. His mental capacity does not seem to be so good although he seems to be understanding it but uncertain if he is really fully grasping what were telling him. I have tried to call his a couple of times but both times she did not respond. Fortunately Dr. Isaacs was able to discuss the plan of care with her yesterday. Please see his notes. Patient also underwent EGD with biopsy and colonoscopy today per Dr. Miller. Findings include gastritis, internal hemorrhoids, mild diverticulosis with inflammation of the ascending colon where biopsy was taken. Rectum did not reveal thickening. Reason For Visit: UREMIA,RENAL FAILURE Physical Exam Vital Signs: Temp Pulse Resp BP Pulse Ox 99.4 F 72 15 119/80 100 12/06/20 11:38 12/06/20 11:38 12/06/20 11:38 12/06/20 11:38 12/06/20 11:38 Intake & Output 12/05/20 12/06/20 12/07/20 06:59 06:59 06:59 Intake Total 2682 832 833 Output Total 2520 2600 Balance 162 -1768 833 Weight 63 kg 63.2 kg 63.2 kg Vitals during dialysis: Blood pressure 161/93, heart rate of 70, blood flow rate of 250 mL/min and dialysate flow rate of 600 mL/min. Exam: General appearance: PRESENT: no acute distress, cooperative, well-developed, well-nourished Head exam: PRESENT: atraumatic, normocephalic Eye exam: PRESENT: conjunctiva slightly pale, PERRLA. ABSENT: scleral icterus Neck exam: ABSENT: JVD Respiratory exam: PRESENT: Normal breath sounds. ABSENT: crackles, rales, rhonchi, unlabored, wheezes Cardiovascular exam: PRESENT: Regular rate rhythm -+S1, +S2. ABSENT: diastolic murmur, systolic murmur GI/Abdominal exam: PRESENT: normal bowel sounds, soft. ABSENT: guarding, mass, tenderness Extremities exam: ABSENT: No edema Neurological exam: PRESENT: alert, awake, oriented to person, place and time. Skin exam: PRESENT: dry, warm, Cardiovascular exam: PRESENT: +S1, +S2. ABSENT: rubs GI/Abdominal exam: PRESENT: normal bowel sounds, soft. ABSENT: organomegaly, tenderness Results Laboratory Results: 12/06/20 04:53 12/06/20 04:53 12/06/20 12/06/20 04:53 04:53 WBC 5.3 RBC 3.20 L Hgb 9.5 L Hct 28.1 L MCV 88 MCH 29.9 MCHC 33.9 RDW 16.6 H Plt Count 267 Sodium 139.9 Potassium 6.4 H* Chloride 108 H Carbon Dioxide 23 Anion Gap 9 BUN 58 H Creatinine 7.68 H Est GFR ( Amer) 9 L Glucose 74 L Calcium 8.1 L Phosphorus 5.5 H Magnesium 1.9 11/27/20 04:50 Creatine Kinase 296 H Impressions: Abdomen/Pelvis CT 11/24/20 20:51 IMPRESSION: Satisfactory position with a Sneed catheter. Mild thickening of the urinary bladder, which may be due to cystitis. Mild bilateral hydronephrosis without evidence of urolithiasis or hydroureter. Diffuse sclerotic metastasis with no pathologic fracture. This may be secondary to rectal cancer, as there circumferential thickening with a left perirectal lymph node. Chest X-Ray 12/05/20 00:00 IMPRESSION: No pneumothorax. Guidance Fluoroscopy 12/05/20 00:00 IMPRESSION: IMAGE(S) OBTAINED DURING PROCEDURE. Head CT 12/05/20 00:00 IMPRESSION: NORMAL BRAIN CT WITHOUT CONTRAST. EVIDENCE OF ACUTE STROKE: NO. Assessment & Plan - Diagnosis (1) Acute kidney injury superimposed on chronic kidney disease Is this a current diagnosis for this admission?: Yes Plan: Due to acute obstructive uropathy associated with bilateral hydronephrosis and possible superimposed prerenal azotemia. Unknown actual baseline creatinine. Initial admitting BUN of 252 with creatinine of 42. Currently the patient is nonoliguric with good urine output. Unfortunately the patient's kidney function did not improve as I expected. I suspect the patient could have an underlying chronic kidney disease due to chron ic obstructive uropathy. Due to persistent abnormal kidney function, patient continues to require renal replacement therapy. We have arranged outpatient dialysis treatment at [facility] upon discharge. We will continue to reevaluate the patient's kidney function as an outpatient. We will do dialysis today for 2.5 hours, using the patient's PermCath, with 1 potassium bath for 2 hours followed by 2 potassium bath, blood flow rate of 250 mL per minute, dialysate flow rate of 600 mL per minute, ultrafiltration none, no heparin and Procrit with 10,000 units during dialysis intravenously. Patient is currently being monitored throughout dialysis treatment. From nephrology standpoint, patient can be discharged home tomorrow. Patient needs rapid Covid testing for [facility] requirements. Discussed plan with Dr. Isaacs. (2) Hydronephrosis Qualifiers: Hydronephrosis type: other Qualified Code(s): N13.39 - Other hydronephrosis Is this a current diagnosis for this admission?: Yes Plan: Bilateral hydronephrosis seen on CT scan on admission. Currently relieved with Sneed catheter. Patient has history of JAMESON requiring one dialysis treatment last summer when he was transferred to [facility] [place]. Patient told me that he has seen the urologist in [place] but could not exactly remember when was the last time he saw the urologist. The patient is to be discharged with indwelling Sneed catheter and needs to set up follow-up with urologist upon discharge. (3) Acute metabolic encephalopathy Is this a current diagnosis for this admission?: Yes Plan: Most likely secondary to uremic encephalopathy. Resolved. Current mental state is most likely the patient's baseline now. (4) Chronic kidney disease-mineral and bone disorder Is this a current diagnosis for this admission?: Yes Plan: Initial phosphorus of 14 with PTH of 394. Repeat phosphorus was 5.5 with PTH of 203. Continue calcitriol. Advise low phosphorus diet. (5) Anemia Qualifiers: Anemia type: unspecified type Qualified Code(s): D64.9 - Anemia, unspecified Is this a current diagnosis for this admission?: Yes Plan: Likely due to anemia of chronic kidney disease. Good iron panel. Retacrit during dialysis. We might need to withhold Retacrit if the patient is really diagnosed with malignancy. (6) Hypertension Qualifiers: Hypertension type: essential hypertension Qualified Code(s): I10 - Essential (primary) hypertension Is this a current diagnosis for this admission?: Yes Plan: Fairly controlled. (7) Hypocalcemia Is this a current diagnosis for this admission?: Yes Plan: On calcium carbonate. Improved. (8) Bony metastasis Is this a current diagnosis for this admission?: Yes Plan: Being worked up for possible rectal cancer. Status post EGD and colonoscopy with biopsies taken today by Dr. Reinoso. (9) Uremia Is this a current diagnosis for this admission?: Yes Plan: Resolved.
[2020-12-07] MEDS: PANTOPRAZOLE SODIUM 20 MG TABLET.DR PO SCH (05:14)
[2020-12-07] MEDS: HEPARIN SOD (PORCINE) 5,000 UNIT/ML 1 ML VIAL SUBCUT SCH ×2 (05:14→13:40)
[2020-12-07 08:12] LABS: ANION GAP 5 (5-19); BLOOD UREA NITROGEN 41 mg/dL (7-20); CALCIUM 7.8 mg/dL (8.4-10.2); CARBON DIOXIDE 27 mmol/L (22-30); CHLORIDE 103 mmol/L (98-107); GLUCOSE 103 mg/dL (75-110); POTASSIUM 5.5 mmol/L (3.6-5.0)
[2020-12-07] MEDS: CALCIUM CARBONATE 500 MG TAB.CHEW PO SCH ×3 (11:15→17:23)
[2020-12-07] MEDS: TAMSULOSIN HCL 0.4 MG CAP.SR.24H PO SCH (11:16)
[2020-12-07] MEDS: CALCITRIOL 0.25 MCG CAPSULE PO SCH (11:16)
[2020-12-07] MEDS: CALCIUM CARBONATE 600 MG/VITAMIN D3 400 UNIT TABLET PO SCH (11:16)
[2020-12-07] MEDS: PANTOT AC/MIN OIL/PET HY-PHL OINT 50 GM TOP SCH ×2 (11:18→17:23)
[2020-12-07] MEDS ORDERED: SODIUM POLYSTYRENE SULFONATE 15 GM/60 ML PO ONE (11:30)
[2020-12-07 19:27] VITALS: BP 108/64
--- NOTE | 2020-12-09 18:04 | PDOC DISCHARGE SUMMARY ---
Impression - Admit/DC Date/PCP Admission Date/Primary Care Provider: 11/25/20 18:09 Discharge Date: 12/07/20 - Discharge Diagnosis (1) Acute kidney injury (JAMESON) with acute tubular necrosis (ATN) Is this a current diagnosis for this admission?: Yes (2) Acute metabolic encephalopathy Is this a current diagnosis for this admission?: Yes (3) Anemia Is this a current diagnosis for this admission?: Yes (4) Bony metastasis Is this a current diagnosis for this admission?: Yes (5) Hydronephrosis Is this a current diagnosis for this admission?: Yes (6) Hypertension Is this a current diagnosis for this admission?: Yes (7) Hypocalcemia Is this a current diagnosis for this admission?: Yes (8) Urinary retention Is this a current diagnosis for this admission?: Yes (9) Hyperkalemia Is this a current diagnosis for this admission?: Yes - Assessment Summary: Non-oliguric Acute kidney injury on likely CKD: due to combination of dehydration and chronic urinary obstruction. Now improving with IVF and Sneed catheter placement. He likely has underlying long-standing CKD given that he presented with elevated K/Phos/PTH and low Ca/hgb. - Nephrology consulted - continue IVF - last HD received on 11/29, possibly will get HD again on Friday - R groin HD catheter placed by general surgery Urinary retention c/b Hydronephrosis s/p Sneed catheter placement - outpatient urology f/u - he will need to be discharged with Sneed in place Bony metastases: concern for metastatic colon/rectal cancer based on CT showing thickened rectum - GI consulted 11/28, plan was for colonoscopy on 11/29 but he was not able to tolerate the prep and the procedure was cancelled until his mental/clinical status improves Anemia - due to malignancy vs hematuria vs long-standing CKD - iron studies - Epo - goal hgb >7 Uremic encephalopathy - anticipate improvement with above treatment - fall precautions - he does not have capacity to leave the hospital AMA Essential Hypertension: much improved - medications adjusted DVT ppx: heparin Q8H - Additional Information Resuscitation Status: Full Code Discharge Diet: Other (Comments) Discharge Activity: Activity As Tolerated, Balance Activity w/Rest Referrals: NICOLASA HARRIS [Other] - 12/12/20 2:40 pm [facility] [Outside] - 12/12/20 2:00 pm (TELEPHONE APPT. PCP WILL PUT IN REFERRALS FOR UROLOGY AND ONCOLOGY) ADAM ALATORRE MD [ACTIVE STAFF] - 12/25/20 10:00 am Prescriptions: Calcium Carbonate/Vitamin D3 [Caltrate 600-Vit D3 400 Tablet] 2 tab PO DAILY 30 Days #90 tablet Tamsulosin HCl [Flomax 0.4 mg Cap.sr] 0.4 mg PO DAILY 30 Days #30 cap Sodium Polystyrene Sulfonate [Kayexalate 15 Gm/60 Ml Susp 60 Ml] 15 gm PO DAILY 7 Days #7 bottle Calcitriol [Rocaltrol 0.25 mcg Capsule] 0.25 mcg PO DAILY 30 Days #30 capsule Home Medications: Calcitriol [Rocaltrol 0.25 mcg Capsule] 0.25 mcg PO DAILY 30 Days #30 capsule 12/07/20 Calcium Carbonate/Vitamin D3 [Caltrate 600-Vit D3 400 Tablet] 2 tab PO DAILY 30 Days #90 tablet 12/07/20 Sodium Polystyrene Sulfonate [Kayexalate 15 Gm/60 Ml Susp 60 Ml] 15 gm PO DAILY 7 Days #7 bottle 12/07/20 Tamsulosin HCl [Flomax 0.4 mg Cap.sr] 0.4 mg PO DAILY 30 Days #30 cap 12/07/20 History of Present Illiness History of Present Illness: As per attending physician's note LINDA COOPER is a 59 year old male with a history of acute kidney failure in April as well as hypertension. In April he presented with similar symptoms with a BUN of 49 and a creatinine of 6.17. He was able to transfer to [facility] and underwent a single dialysis treatment. It was felt that he had obstructive uropathy at that time. At the time of this admission a Sneed catheter was placed and 2.25 L of urine was drained. Sneed catheter remains in place. Because of the high uremia the patient does exhibit mild confusion but eventually is able to answer questions correctly. He could not remember the name of his antihypertensive medication. He did remember his primary care physician is Dr. Hylton in [place]. He knew he was in [facility] in [place]. He knew the month and the fact that his birthday is next week. When he presented initially yesterday his hemoglobin was 7.2 but dropped to 6.4 with hydration. He was transfused 2 units of packed cells. His vitals have been relatively stable since then. The emergency department physician did contact multiple hospitals for transfer as we do not have nephrology on the weekends. The patient is making urine. The plan will be to admit the patient and monitor closely. We will administer IV fluids. His skin is extremely dry and he exhibits skin tenting. His hemoglobin today was up to 8.5 and we will monitor closely. His calcium did drop to 7.0 and 1 g of calcium has been ordered. His albumin is normal at 3.9. Electrolytes are unremarkable. Serology was performed and the patient tested negative for Covid virus. Since several facilities have refused transfer I will admit him to the hospitalist service. IV fluids with strict intake and output monitoring. If he remains stable we will have nephrology evaluate him on Friday. If he does not remain stable then we will need to attempt to transfer again. Hospital Course Hospital Course: (1) Acute kidney injury (JAMESON) with acute tubular necrosis (ATN) This was most likely due to combination of dehydration and chronic urinary obstruction complicated by underlying long-standing CKD given that he presented with elevated K/Phos/PTH and low Ca/hgb. No significant improvement of renal function. Nonoliguric. Was receiving scheduled hemodialysis. Placed Port-A-Cath placement on 11/04/2021. Was discharged to follow-up with Dr. Castle and continue his scheduled hemodialysis upon discharge. Hemodialysis with [facility] was arranged by case workers. Continued strict in and out, monitor vitals status and electrolytes. (2) Acute metabolic encephalopathy Likely due to uremic symptoms because of acute renal failure. Alert and oriented x3 however does not appear to have a good insight into his underlying medical condition. Back to baseline as per family. Was a started on fall, seizure and aspiration precautions. (3) Anemia Multifactorial. Likely due to malignancy, hematuria, long-standing CKD. Hemoccult negative. Iron studies suggestive of anemia of chronic disease. Status post 3 PRBC transfusion on admission. H&H stable and trending up. Received Procrit during hemodialysis by nephrology. (4) Bony metastasis Concern for metastatic colon/rectal cancer based on CT showing thickened rectum Patient had an upper and lower GI endoscopy 12/06/2020. Findings of upper and lower GI endoscopy were as follow: Ggastritis, biopsy was taken. Internal hemorrhoids. Mild diverticulosis. Evaluation of rectum did not reveal any thickening. Inflammation noted ascending colon area biopsy was obtained. No GI source of for abnormal CT scan finding. Appointment with oncology was obtained and patient was encouraged to follow-up with oncology to discuss the finding of the biopsy and further work-up and to finding the source of bony metastasis. (5) Hydronephrosis CT abdomen positive for mild bilateral hydronephrosis without evidence of urolithiasis or hydroureter. Outpatient urology follow-up. Unfortunately no urology consult available at [facility] at this point. Patient was discharged with a Sneed catheter. An appointment was made for him to follow-up with his urologist as outpatient. Patient was discharged home with home health and patient and family strongly e ncouraged to follow-up with his urologist. (6) Hypertension Euvolemic and normotensive at the time of discharge. (7) Hypocalcemia Ressolved. Patient was started on calcium supplement. Was discharged on supplemental calcium. (8) Urinary retention Urinary retention c/b Hydronephrosis s/p Sneed catheter placement Outpatient urology f/u He will need to be discharged with Sened in place (9) Hyperkalemia Due to end-stage renal disease. Was started on hyperkalemia protocol. Potassium within normal except on the day of discharge. Physical Exam Vital Signs: Temp Pulse Resp BP Pulse Ox 98.3 F 85 16 150/94 H 100 12/07/20 18:13 12/07/20 18:13 12/07/20 18:13 12/07/20 18:13 12/07/20 18:13 Intake & Output 12/08/20 12/09/20 12/10/20 06:59 06:59 06:59 Intake Total 942 Output Total 1050 Balance -108 General appearance: PRESENT: no acute distress, well-developed, well-nourished, other - Poor hygiene Head exam: PRESENT: atraumatic, normocephalic Respiratory exam: PRESENT: clear to auscultation wilver. ABSENT: rales, rhonchi, wheezes Cardiovascular exam: PRESENT: RRR. ABSENT: diastolic murmur, rubs, systolic murmur GI/Abdominal exam: PRESENT: normal bowel sounds, soft. ABSENT: distended, guarding, mass, organolmegaly, rebound, tenderness Gentrourinary exam: PRESENT: indwelling catheter Neurological exam: PRESENT: alert, awake, oriented to person, oriented to place, CN II-XII grossly intact. ABSENT: motor sensory deficit Results Laboratory Results: WBC 5.3 10^3/uL (4.0-10.5) 12/06/20 04:53 RBC 3.20 10^6/uL (4.35-5.55) L 12/06/20 04:53 Hgb 9.5 g/dL (13.5-17.0) L 12/06/20 04:53 Hct 28.1 % (37.9-51.0) L 12/06/20 04:53 MCV 88 fl (80-97) 12/06/20 04:53 MCH 29.9 pg (27.0-33.4) 12/06/20 04:53 MCHC 33.9 g/dL (32.0-36.0) 12/06/20 04:53 RDW 16.6 % (11.5-14.0) H 12/06/20 04:53 Plt Count 267 10^3/uL (150-450) 12/06/20 04:53 Lymph % (Auto) 19.4 % (13-45) 12/05/20 04:21 [place] % (Auto) 14.8 % (3-13) H 12/05/20 04:21 Eos % (Auto) 6.1 % (0-6) H 12/05/20 04:21 Baso % (Auto) 0.9 % (0-2) 12/05/20 04:21 Reticulocyte # 0.041 10^6/uL (0.028-0.122) 11/26/20 04:20 Absolute Neuts (auto) 2.7 10^3/uL (1.7-8.2) 12/05/20 04:21 Absolute Lymphs (auto) 0.9 10^3/uL (0.5-4.7) 12/05/20 04:21 Absolute Monos (auto) 0.7 10^3/uL (0.1-1.4) 12/05/20 04:21 Absolute Eos (auto) 0.3 10^3/uL (0.0-0.6) 12/05/20 04:21 Absolute Basos (auto) 0.0 10^3/uL (0.0-0.2) 12/05/20 04:21 Seg Neutrophils % 58.8 % (42-78) 12/05/20 04:21 Retic Count (auto) 1.45 % (0.66-2.85) 11/26/20 04:20 Sodium 135.1 mmol/L (137-145) L 12/07/20 07:47 Potassium 4.9 mmol/L (3.6-5.0) 12/07/20 17:20 Chloride 103 mmol/L (98-107) 12/07/20 07:47 Carbon Dioxide 27 mmol/L (22-30) 12/07/20 07:47 Anion Gap 5 (5-19) 12/07/20 07:47 BUN 41 mg/dL (7-20) H 12/07/20 07:47 Creatinine 5.60 mg/dL (0.52-1.25) H 12/07/20 07:47 Est GFR ( Amer) 13 (>60) L 12/07/20 07:47 Est GFR (Non-Af Amer) Cancelled 11/24/20 17:05 Est GFR (MDRD) Non-Af 10 (>60) L 12/07/20 07:47 Glucose 103 mg/dL (75-110) 12/07/20 07:47 POC Glucose 136 mg/dL (70-110) H 12/06/20 09:42 Calcium 7.8 mg/dL (8.4-10.2) L 12/07/20 07:47 Phosphorus 5.5 mg/dL (2.5-4.5) H 12/06/20 04:53 Magnesium 1.9 mg/dL (1.6-2.3) 12/06/20 04:53 Iron 52.7 ug/dL (49-181) 11/26/20 07:51 TIBC 199 ug/dL (250-450) L 11/26/20 07:51 % Saturation 26 % 11/26/20 07:51 Iron Saturation Cancelled 11/26/20 04:20 Ferritin 571.00 ng/mL (17.9-464.0) H 11/26/20 07:51 Total Bilirubin 0.2 mg/dL (0.2-1.3) 12/04/20 04:25 Direct Bilirubin 0.2 mg/dL (0.0-0.4) 12/04/20 04:25 Neonat Total Bilirubin Not Reportable 12/04/20 04:25 Neonat Direct Bilirubin Not Reportable 12/04/20 04:25 Neonat Indirect Bili Not Reportable 12/04/20 04:25 AST 28 U/L (17-59) 12/04/20 04:25 ALT 23 U/L (<50) 12/04/20 04:25 Alkaline Phosphatase 62 U/L (38-126) 12/04/20 04:25 Creatine Kinase 296 U/L (55-170) H 11/27/20 04:50 C-Reactive Protein 23.3 mg/L (<10.0) H 11/26/20 07:51 Total Protein 5.2 g/dL (6.3-8.2) L 12/04/20 04:25 Albumin 2.7 g/dL (3.5-5.0) L 12/04/20 04:25 EGFR Cancelled 11/24/20 17:05 Vitamin B12 856.0 pg/mL (239-931) 11/26/20 07:51 Folate 6.35 ng/mL (>2.76) 11/26/20 07:51 TSH 0.38 uIU/mL (0.47-4.68) L 11/26/20 04:20 PTH Intact 203.9 pg/mL (10.0-65.0) H 12/02/20 06:33 Urine Color COLORLESS 12/04/20 13:05 Urine Appearance CLEAR 12/04/20 13:05 Urine pH 7.0 (5.0-9.0) 12/04/20 13:05 Ur Specific [place] 1.008 12/04/20 13:05 Urine Protein NEGATIVE mg/dL (NEGATIVE) 12/04/20 13:05 Urine Glucose (UA) 50 mg/dL (NEGATIVE) H 12/04/20 13:05 Urine Ketones NEGATIVE mg/dL (NEGATIVE) 12/04/20 13:05 Urine Blood MODERATE (NEGATIVE) H 12/04/20 13:05 Urine Nitrite NEGATIVE (NEGATIVE) 12/04/20 13:05 Urine Nitrite (Reflex) NEGATIVE (NEGATIVE) 11/25/20 20:14 Urine Bilirubin NEGATIVE (NEGATIVE) 12/04/20 13:05 Urine Urobilinogen NEGATIVE mg/dL (<2.0) 12/04/20 13:05 Ur Leukocyte Esterase SMALL (NEGATIVE) H 12/04/20 13:05 Leukocyte Esterase Rfl MODERATE (NEGATIVE) H 11/25/20 20:14 Urine WBC (Auto) 2 /HPF 12/04/20 13:05 Urine RBC (Auto) 11 /HPF 12/04/20 13:05 Urine Bacteria (Auto) TRACE /HPF 12/04/20 13:05 Urine WBC (Reflex) 74 /HPF 11/25/20 20:14 Squamous Epi Cells Auto <1 /HPF 11/25/20 20:14 Urine Mucus (Auto) RARE /LPF 12/04/20 13:05 Urine Ascorbic Acid NEGATIVE (NEGATIVE) 12/04/20 13:05 POC Stool Occult Blood NEGATIVE (NEGATIVE) 11/24/20 18:08 Anti-Nuclear Antibody Negative (Negative) 11/26/20 07:51 COVID-19 Source Cancelled 11/24/20 16:42 COVID-19 (JENNY) Cancelled 11/24/20 16:42 Hep Bs Antigen Negative (Negative) 11/27/20 04:50 Hep Bs Antibody, Quant <3.1 mIU/mL (Immunity>9) L 11/27/20 04:50 Hep B Core Total Ab Negative (Negative) 11/27/20 04:50 HCV Quantitation HCV Not Detected IU/mL (.) 11/27/20 04:50 HCV RNA PCR Test Info Comment (.) 11/27/20 04:50 Influenza A (RT-PCR) NEGATIVE (NEGATIVE) 12/06/20 19:16 Influenza B (RT-PCR) NEGATIVE (NEGATIVE) 12/06/20 19:16 RSV (RT-PCR) NEGATIVE (NEGATIVE) 12/06/20 19:16 SARS-CoV-2 Rap RNA(RT-PCR) NEGATIVE (NEGATIVE) 12/06/20 19:16 Blood Type O POSITIVE 11/24/20 20:16 Blood Type Confirm O POSITIVE 11/24/20 20:52 Antibody Screen NEGATIVE 11/24/20 20:16 Crossmatch See Detail 11/24/20 20:16 Impressions: Chest X-Ray 11/24/20 16:04 IMPRESSION: NO ACUTE RADIOGRAPHIC FINDING IN THE CHEST. Abdomen/Pelvis CT 11/24/20 20:51 IMPRESSION: Satisfactory position with a Sneed catheter. Mild thickening of the urinary bladder, which may be due to cystitis. Mild bilateral hydronephrosis without evidence of urolithiasis or hydroureter. Diffuse sclerotic metastasis with no pathologic fracture. This may be secondary to rectal cancer, as there circumferential thickening with a left perirectal lymph node. Chest X-Ray 12/05/20 00:00 IMPRESSION: No pneumothorax. Guidance Fluoroscopy 12/05/20 00:00 IMPRESSION: IMAGE(S) OBTAINED DURING PROCEDURE. Head CT 12/05/20 00:00 IMPRESSION: NORMAL BRAIN CT WITHOUT CONTRAST. EVIDENCE OF ACUTE STROKE: NO. Stroke Is this a Stroke Patient?: No Acute Heart Failure Is this a Heart Failure Patient?: No
== END 2020-12-07 19:40 | disposition home health service (06) | DRG 682 ==
LOC: ER 14:10 → EH 11-25 18:09 → 4N 11-25 20:36
PROVIDERS: ADMIT Hospitalist; ATTEND Internal Medicine
PROC: 30233N1 Transfusion of Nonautologous Red Blood Cells into Peripheral Vein, Percutaneous Approach (ICD-10-PCS; 2020-11-24)
PROC: 02HV33Z Insertion of Infusion Device into Superior Vena Cava, Percutaneous Approach (ICD-10-PCS; 2020-11-27)
PROC: B548ZZA Ultrasonography of Superior Vena Cava, Guidance (ICD-10-PCS; 2020-11-27)
PROC: 5A1D70Z Performance of Urinary Filtration, Intermittent, Less than 6 Hours Per Day (ICD-10-PCS; 2020-11-27)
PROC: 02HV33Z Insertion of Infusion Device into Superior Vena Cava, Percutaneous Approach (ICD-10-PCS; 2020-12-05)
PROC: 0DB78ZX Excision of Stomach, Pylorus, Via Natural or Artificial Opening Endoscopic, Diagnostic (ICD-10-PCS; 2020-12-06)
PROC: 0DBK8ZX Excision of Ascending Colon, Via Natural or Artificial Opening Endoscopic, Diagnostic (ICD-10-PCS; principal; 2020-12-06 13:00)
DX: N17.0 Acute kidney failure with tubular necrosis (principal); G93.41 Metabolic encephalopathy; C18.9 Malignant neoplasm of colon, unspecified; C79.51 Secondary malignant neoplasm of bone; I12.0 Hypertensive chronic kidney disease with stage 5 chronic kidney disease or end stage renal disease; E86.0 Dehydration; Z78.1 Physical restraint status; Z20.822 Contact with and (suspected) exposure to COVID-19; D63.8 Anemia in other chronic diseases classified elsewhere; E83.51 Hypocalcemia; K29.70 Gastritis, unspecified, without bleeding; R33.9 Retention of urine, unspecified; E87.5 Hyperkalemia; D63.1 Anemia in chronic kidney disease; N18.9 Chronic kidney disease, unspecified; K64.8 Other hemorrhoids; K57.30 Diverticulosis of large intestine without perforation or abscess without bleeding; N18.6 End stage renal disease; N40.1 Benign prostatic hyperplasia with lower urinary tract symptoms; E83.9 Disorder of mineral metabolism, unspecified; N13.39 Other hydronephrosis; Z80.9 Family history of malignant neoplasm, unspecified
CPT/HCPCS: 00532; 00813; 36415; 36430; 43239; 45380; 51702; 70450; 71045; 74176; 77001; 80048; 80053; 80069; 81001; 82270; 82550; 82607; 82728; 82746; 82962; 83540; 83550; 83735; 83970; 84100; 84132; 84443; 85025; 85027; 85045; 86038; 86140; 86317; 86704; 86850; 86900; 86901; 86920; 87070; 87086; 87340; 87522; 88305; 88342; 93005; 93010; 96361; 96374; 99285; J0610; 0241U; C9803; J0690; J1630; J1644; J1815; J2250; J2405; J2704; J3010; J3490; J7030; J7040; J7050; J7060; P9016; P9047; Q5105